=== PATIENT | female | born 1955 | race Caucasian/White ===

== ENCOUNTER 2020-08-29 07:21 | Outpatient (REF) | payer OTHER, SELFPAY ==
[2020-08-29 12:07] LABS: Estimated Average Glucose 111 mg/dL; Hemoglobin A1c % 5.5 %
[2020-08-29 12:11] LABS: Free T4 (Free Thyroxine) 1.15 ng/dL (0.71-1.85); Thyroid Stimulating Hormone 5.55 uIU/mL (0.32-4.0); Vitamin D 25-OH Total 31.2 ng/mL (>30)
[2020-08-29 12:12] LABS: Alanine Aminotransferase 30 U/L (0-31); Anion Gap 17 (12-20); Aspartate Amino Transferase 21 U/L (5-31); Blood Urea Nitrogen 13 mg/dL (9-16); Calcium 9.4 mg/dL (8.4-10.2); Carbon Dioxide 24 mmol/L (22-29); Chloride 104 mmol/L (96-108); Cholesterol 266 mg/dL; Estimated Glomerular Filt Rate 57; Glucose Fasting 109 mg/dL (60-99); HDL Cholesterol 73 mg/dL; LDL Cholesterol Calculated 160 mg/dl; Potassium 4.5 mmol/l (3.3-5.1); Sodium 140 mmol/L (135-145); Triglycerides 169 mg/dL
== END 2020-08-29 07:22 | disposition home or self-care (01) ==
LOC: HO.HMGCLDS 07:21
PROVIDERS: PCP Internal Medicine; Visit Provider Internal Medicine
DX: R73.01 Impaired fasting glucose (principal); E78.5 Hyperlipidemia, unspecified; E03.9 Hypothyroidism, unspecified; E78.2 Mixed hyperlipidemia; K21.9 Gastro-esophageal reflux disease without esophagitis; F41.1 Generalized anxiety disorder; Z78.0 Asymptomatic menopausal state
CPT/HCPCS: 36415; 80048; 80061; 82306; 83036; 84439; 84443; 84450; 84460

== ENCOUNTER 2021-01-29 08:07 | Outpatient (REF) | payer OTHER, SELFPAY ==
[2021-01-29 12:17] LABS: Free T4 (Free Thyroxine) 1.26 ng/dL (0.71-1.85)
[2021-01-29 12:31] LABS: Alanine Aminotransferase 18 U/L (0-31); Aspartate Amino Transferase 14 U/L (5-31); Cholesterol 225 mg/dL; HDL Cholesterol 68 mg/dL; LDL Cholesterol Calculated 130 mg/dl; Triglycerides 137 mg/dL
== END 2021-01-29 08:08 | disposition home or self-care (01) ==
LOC: HO.HMGCLDS 08:07
PROVIDERS: PCP Internal Medicine; Visit Provider Internal Medicine
DX: E03.9 Hypothyroidism, unspecified (principal); E78.5 Hyperlipidemia, unspecified; F41.1 Generalized anxiety disorder
CPT/HCPCS: 36415; 80061; 84439; 84443; 84450; 84460

== ENCOUNTER 2021-03-23 15:27 | Outpatient (REF) | payer OTHER, SELFPAY | END 2021-03-23 15:28 | disposition home or self-care (01) | LOC: HO.LNP 15:27 | PROVIDERS: Visit Provider Physician Assistant Medical | DX: Z20.822 Contact with and (suspected) exposure to COVID-19 (principal) | CPT/HCPCS: U0003; U0005 ==

== ENCOUNTER 2021-05-17 09:46 | Emergency (ER) | payer OTHER, SELFPAY ==
--- NOTE | ~2021-05-17 | CT_ITS ---
EXAMINATION: CT ANGIOGRAM NECK WITH CONTRAST CT ANGIOGRAM BRAIN WITH CONTRAST CLINICAL INFORMATION: Left-sided headache, dizziness, and blurry vision. COMPARISON: MRI brain 03/23/2018. TECHNIQUE: Test bolus sequences followed by intravenous administration 70 mL of Omnipaque 350. Helical imaging was performed in the axial plane from the thoracic inlet to the skull vertex. Delayed postcontrast imaging of the head was also performed. The data was processed at the cardiovascular radiologic technologist workstation for generation of MIP sequences. Angled MIPs and volume rendered reformatted images were also generated at an offline 3D workstation under concurrent supervision. Stenoses are assessed in accordance with NASCET criteria unless otherwise indicated. This CT examination was performed using dose optimization techniques as appropriate, variously including the following: *Automated exposure control *Adjustment of mA and/or kV according to patient size (this includes techniques or standardized protocols for targeted exams where dose is matched to indication/reason for exam; i.e. extremities or head) *Use of iterative reconstruction technique FINDINGS: BRAIN: [There is no intracranial hemorrhage, hydrocephalus, extra-axial surface collection, midline shift, or other herniation pattern. Patterson to white matter differentiation is diffusely maintained without evidence of an evolved acute territorial infarct. The basilar cisterns are preserved. No significant soft tissue abnormality. No acute osseous abnormality. The paranasal sinuses and the mastoid air cells are well aerated.] CERVICAL SOFT TISSUES AND LUNG APICES: Multilevel cervical spondylosis. No significant soft tissue findings within the neck. Imaged upper lungs are clear. NECK CTA: [There is a classic 3 vessel configuration of the aortic arch. Proximal arch vessels are non-stenotic. The vertebral arteries are codominant. No significant ostial stenosis is visualized on either side. Both vertebral arteries are widely patent throughout their extracranial cervical course. Both common and internal carotid arteries are normal in course and caliber.] BRAIN CTA: [There is normal opacification of major intracranial arteries. No focal flow-limiting stenosis nor discrete proximal large artery occlusion. No aneurysm. Timing of the contrast bolus allows assessment of the major dural venous sinuses, which all opacify normally] CT/CT angio head neck IMPRESSION: No acute intracranial findings. No acute arterial occlusions and no significant arterial stenoses within the head or neck.
--- NOTE | ~2021-05-17 | MR_ITS ---
EXAMINATION: MRI OF THE BRAIN WITHOUT CONTRAST CLINICAL INFORMATION: Dizziness and blurred vision. COMPARISON: CTA of the head and neck 05/17/2021. MRI scan of the brain 03/23/2018. TECHNIQUE: MRI of the brain was obtained using routine sequences without contrast. FINDINGS: No diffusion abnormalities are identified to suggest an acute or subacute infarct. No mass effect or midline shift is seen. There is mild commensurate prominence the ventricles and sulci consistent with diffuse volume loss. Overall, brain parenchymal signal is unremarkable. No discrete extra-axial fluid collections are seen; there is a melissa cisterna magna posteriorly in the posterior fossa on the left. The brainstem and cerebellum are normal. No pathologic magnetic susceptibility artifact is identified on the gradient refocused acquisition. The craniovertebral junction, marrow signal, and midline structures are normal. The major intracranial flow-voids at the level of the kaibab of [place] are preserved. The dural venous sinus flow-voids are maintained. The study redemonstrates fluid signal in the right mastoid air cells, similar compared to prior imaging. The left mastoid air cells and paranasal sinuses are well-aerated. MR/MR head/brain wo con IMPRESSION: 1. There are no acute bleeds or territorial infarcts. No masses are demonstrated. There is persistent fluid signal in the right mastoid air cells..
[2021-05-17 09:51] VITALS: BP 150/100; PULSE 58; RESP 16; TEMP 36.3; O2SAT 95; BMI 25.4
--- NOTE | 2021-05-17 09:59 | ED_ITS ---
HPI - Neuro Symptoms/Deficit General Chief Complaint: Neuro Symptoms/Deficit Stated Complaint: SHARP HEAD PAIN BLURRED VISSION Time Seen by Provider: 05/17/21 09:53 Source: patient Mode of arrival: ambulatory Limitations: no limitations History of Present Illness Onset (ago): hour(s) (830pm last night) Location: other (L sharp headache, blurry vision, ) History of same: No Severity: moderate Quality: other (sharp head pain) Relieving factors: none Exacerbating factors: none Context: sudden onset On Anticoagulants: No Associated symptoms: other (dizziness, floaters in eye, blurry vision, also felt her L pupil was constricted) Treatments Prior to Arrival: Aspirin and other (xanax) Related Data Home Medications Medication Instructions Recorded Confirmed Prevagen 1 tab PO DAILY 05/17/21 05/17/21 aspirin 81 mg chewable tablet 81 mg PO DAILY 05/17/21 05/17/21 cholecalciferol (vitamin D3) 25 25 mcg PO DAILY 05/17/21 05/17/21 mcg (1,000 unit) capsule (Vitamin D3) cyanocobalamin (vitamin B-12) 1,000 mcg PO DAILY 05/17/21 05/17/21 1,000 mcg tablet pyridoxine (vitamin B6) 100 mg 50 mg PO DAILY 05/17/21 05/17/21 tablet vitamin E 200 unit tablet 450 mg PO DAILY 05/17/21 05/17/21 Previous Rx's Medication Instructions Recorded omeprazole 20 mg capsule,delayed 20 mg PO DAILY #90 cap 12/12/20 release atorvastatin 40 mg tablet 40 mg PO DAILY #90 tab 03/10/21 alprazolam 0.5 mg tablet 0.5 mg PO BID PRN #45 tab 03/29/21 levothyroxine 50 mcg tablet 50 mcg PO DAILY #90 tab 04/30/21 meclizine 25 mg tablet 25 mg PO TID PRN #30 tab 05/17/21 Allergies Allergy/AdvReac Type Severity Reaction Status Date / Time Codeine Sulfate AdvReac Unknown nausea Uncoded 12/09/19 00:00 Review of Systems Review of Systems: Constitutional : No Fever, No Chills, No Fatigue ENT/Mouth : No sore throat, No Rhinorrhea Eyes: No Eye Pain, No Swelling, No Redness, pos blurry vision Cardiovascular : No Chest Pain, No SOB, No Dyspnea on Exertion Respiratory : No Cough, No Sputum Gastrointestinal : No Nausea, No Vomiting, No Diarrhea, No abdominal Pain Genitourinary : No Dysuria, No Urinary Frequency, No Hematuria, Musculoskeletal : No joint pain, No Myalgias, No Joint Swelling Skin : No Skin Lesions, No rash Neuro : No Weakness, No Numbness, pos Dizziness, positive Headache Psych : No Anxiety/Panic, No Depression Heme/Lymph: No Bruising, No Bleeding,No Lymphadenopathy Endocrine : No Polyuria, No Polydipsia All other systems reviewed and are negative [facility] Past Medical History Attestation statement: The following information was validated with the patient. Medical History Acquired hypothyroidism Chronic GERD Dyslipidemia Generalized anxiety disorder Patent foramen ovale with atrial septal aneurysm TIA (transient ischemic attack) Surgical History Hx of colonoscopy Family History Family History Father Coronary artery disease Brother Coronary artery disease Paternal Grandmother Breast cancer Social History Social History Alcohol intake: current Advance Directives: Yes Advance Directives Information Provided: Yes Advance Directives on File: No Physical Exam Vital Signs: Vital Signs: Last Vital Signs Temp 98 F 05/17/21 15:15 Pulse 70 05/17/21 15:15 Resp 16 05/17/21 15:15 BP 114/59 L 05/17/21 15:15 Pulse Ox 97 05/17/21 15:15 Body Mass Index 25.4 Appearance: Alert. Oriented X3. No acute distress. Anxious Eyes: Pupils equal, round and reactive to light. 2mm ENT: Pharynx normal. Neck: Normal inspection. Neck supple. CVS: Normal heart rate and rhythm. Pulses normal. Respiratory: No respiratory distress. Breath sounds normal. Abdomen: Soft and non-tender. Skin: Skin warm and dry. Normal skin color. Normal skin turgor. Extremities: No lower extremity edema. No calf ttp Neuro: Oriented X 3. No motor deficit. No sensory deficit. Steady gait in heels Course Course Course Narrative: EKG request from [facility] repeat trop ordered neg CTA still feels dizzy MRI ordered given she is higher risk with PFO negative MRI EKG changed from 2014 but no CP/SOB negative trop x 2, doubt ACS will repeat EKG 2nd EKG deeper T wave inversions but again no CP/SOB will discuss with cardiology - no tachycardia no hypoxia no pain or signs of DVT to suggest VTE given lack of CP/SOB discussed with Cardiology non specific can follow up with PCP Sebas PE negative MDM - Neuro Symptoms/Deficit MDM Narrative Medical decision making narrative: 66 yo female with hx of TIA and PFO on aspirin comes in with c/o feeling dizzy, blurry vision, thought her L pupil was smaller today, as well as sharp L sided headache at this time her onset is over 12 hours she is out of the window for tPa if it is a stroke. Given the sharp pain there is a concern for dissection as well - CT scan /CTA head and neck, PO xanax for anxiety, labs, dispo per results and findings. Lab Data Result diagrams: 05/17/21 10:28 05/17/21 10:28 Labs: Lab Results 05/17/21 05/17/21 05/17/21 Range/Units 10:28 10:28 10:28 WBC 7.8 (4.8-10.8) X10*3/uL RBC 4.50 (4.20-5.50) X10*6/uL Hgb 14.0 (12.0-16.0) g/dl Hct 41.5 (37-47) % MCV 92.2 (80-98) fL MCH 31.1 (27.0-33.0) pg MCHC 33.7 (31.0-35.0) g/dl RDW 13.2 (11.0-16.0) % Plt Count 293 (160-400) X10*3/uL MPV 9.7 (9.4-12.3) fL Immature Gran % (Auto) 0.1 (0.0-0.4) % Neut % (Auto) 60.2 (45-73) % Lymph % (Auto) 32.5 (20-40) % Kaufman % (Auto) 6.3 (2-11) % Eos % (Auto) 0.5 (0-4) % Baso % (Auto) 0.4 (0-2) % Lymph # (Auto) 2.5 (1.2-4.9) X10*3/uL Kaufman # (Auto) 0.5 (0.1-1.2) X10*3/uL Eos # (Auto) 0.0 (0.0-0.4) X10*3/uL Baso # (Auto) 0.0 (0.0-0.2) X10*3/uL Abs Immat Gran (auto) 0.01 (0.00-0.03) X10*3/uL Absolute Neuts (auto) 4.7 (2.0-8.3) X10*3/uL Absolute Nucleated RBC 0.000 (0.0-0.012) X10*3/uL Nucleated RBC % (auto) 0.0 (0.0-0.2) /100WBC Sodium 140 (135-145) mmol/L Potassium 4.3 (3.3-5.1) mmol/L Chloride 104 (96-108) mmol/L Carbon Dioxide 26 (22-29) mmol/L Anion Gap 14 (12-20) BUN 12 (9-16) mg/dL Creatinine 0.95 (0.5-1.4) mg/dL Estim Creat Clear Calc 48.0 Estimated GFR 59 Random Glucose 105 (60-115) mg/dL Calcium 10.3 H D (8.4-10.2) mg/dL Magnesium 2.0 (1.6-2.6) mg/dL Total Bilirubin 0.4 (0.0-1.0) mg/dL Direct Bilirubin 0.2 (0.0-0.5) mg/dL AST 16 (5-31) U/L ALT 25 (0-31) U/L Alkaline Phosphatase 71 (39-117) U/L Troponin I High Sens < 3.5 (<3.5-17.0) ng/L Total Protein 7.4 (6.5-8.0) g/dL Albumin 4.7 (3.5-5.0) g/dL Lipase 27 (8-78) U/L Urine Color Urine Appearance Urine pH (5.0-8.0) Ur Specific Dale (1.005-1.025) Urine Protein (NEG-TRACE) MG/DL Urine Glucose (UA) (NEG) MG/DL Urine Ketones (NEG) MG/DL Urine Blood (NEG) Urine Nitrite (NEG) Ur Leukocyte Esterase (NEG) COVID-19 (GUERDA) (Negative) COVID-19 Clin Com 05/17/21 05/17/21 05/17/21 Range/Units 10:28 10:28 13:13 WBC (4.8-10.8) X10*3/uL RBC (4.20-5.50) X10*6/uL Hgb (12.0-16.0) g/dl Hct (37-47) % MCV (80-98) fL MCH (27.0-33.0) pg MCHC (31.0-35.0) g/dl RDW (11.0-16.0) % Plt Count (160-400) X10*3/uL MPV (9.4-12.3) fL Immature Gran % (Auto) (0.0-0.4) % Neut % (Auto) (45-73) % Lymph % (Auto) (20-40) % Kaufman % (Auto) (2-11) % Eos % (Auto) (0-4) % Baso % (Auto) (0-2) % Lymph # (Auto) (1.2-4.9) X10*3/uL Kaufman # (Auto) (0.1-1.2) X10*3/uL Eos # (Auto) (0.0-0.4) X10*3/uL Baso # (Auto) (0.0-0.2) X10*3/uL Abs Immat Gran (auto) (0.00-0.03) X10*3/uL Absolute Neuts (auto) (2.0-8.3) X10*3/uL Absolute Nucleated RBC (0.0-0.012) X10*3/uL Nucleated RBC % (auto) (0.0-0.2) /100WBC Sodium (135-145) mmol/L Potassium (3.3-5.1) mmol/L Chloride (96-108) mmol/L Carbon Dioxide (22-29) mmol/L Anion Gap (12-20) BUN (9-16) mg/dL Creatinine (0.5-1.4) mg/dL Estim Creat Clear Calc Estimated GFR Random Glucose (60-115) mg/dL Calcium (8.4-10.2) mg/dL Magnesium (1.6-2.6) mg/dL Total Bilirubin (0.0-1.0) mg/dL Direct Bilirubin (0.0-0.5) mg/dL AST (5-31) U/L ALT (0-31) U/L Alkaline Phosphatase (39-117) U/L Troponin I High Sens < 3.5 (<3.5-17.0) ng/L Total Protein (6.5-8.0) g/dL Albumin (3.5-5.0) g/dL Lipase (8-78) U/L Urine Color STRAW Urine Appearance CLEAR Urine pH 5.5 (5.0-8.0) Ur Specific Dale <= 1.005 (1.005-1.025) Urine Protein NEG (NEG-TRACE) MG/DL Urine Glucose (UA) NEG (NEG) MG/DL Urine Ketones NEG (NEG) MG/DL Urine Blood NEG (NEG) Urine Nitrite NEG (NEG) Ur Leukocyte Esterase NEG (NEG) COVID-19 (GUERDA) Negative (Negative) COVID-19 Clin Com See Note ECG Data Attestation: I personally reviewed and interpreted this ECG as follows: ECG interpretation date: 05/17/21 ECG interpretation time: 10:28 Interpretation: Rate: 66 Rhythm: NSR Mackay: normal LVH Normal P waves. Normal FLORENCE. Normal QRS complex. ST T wave : no VANDANA, inverted I and aVL, V4-V6 qTC: normal prior studies: no priors available The study has been interpreted contemporaneously by me. Rate: 62 Rhythm: NSR Mackay: normal Normal P waves. Normal FLORENCE. Normal QRS complex. ST T wave : inverted in I and aVL, V3-V6, biphasic in V1-V2 qTC: normal prior studies: changed from prior The study has been interpreted contemporaneously by me. . NIH Stroke Scale Internal: Initial- Upon Arrival Level of Consciousness: Alert Level of Consciousness Questions: Answers both questions correctly Level of Consciousness Commands: Performs both tasks correctly Best Gaze: Normal Visual: No visual loss Facial Palsy: Normal Motor Arm (Right): No drift Motor Arm (Left): No drift Motor Leg (Right): No drift Motor Leg (Left): No drift Limb Ataxia: Absent Sensory: Normal Best Language: No aphasia Dysarthia: Normal Extinction and Inattention: No abnormality Score: 0 Discharge Plan Discharge Clinical Impression: Dizziness, Headache, Inverted T wave Patient Disposition: Home, Self-Care Instructions: Acute Headache (ED), Dizziness (ED) Additional Instructions: return to ED for any worsening symptoms or concerns heart markers negative x 2, MRI negative for stroke, CT with contrast no acute stroke normal vessels Prescriptions: New meclizine 25 mg tablet 25 mg PO TID PRN (Reason: dizziness) Qty: 30 RF: 0 No Action omeprazole 20 mg capsule,delayed release(DR/EC) 20 mg PO DAILY Qty: 90 RF: 4 atorvastatin 40 mg tablet 40 mg PO DAILY Qty: 90 RF: 1 alprazolam 0.5 mg tablet 0.5 mg PO BID PRN (Reason: anxiety) Qty: 45 RF: 0 levothyroxine 50 mcg tablet 50 mcg PO DAILY Qty: 90 RF: 1 cyanocobalamin (vitamin B-12) 1,000 mcg Tablet 1,000 mcg PO DAILY RF: 0 aspirin 81 mg Tablet,Chewable 81 mg PO DAILY RF: 0 pyridoxine (vitamin B6) 100 mg Tablet 50 mg PO DAILY RF: 0 vitamin E 200 unit Tablet 450 mg PO DAILY RF: 0 cholecalciferol (vitamin D3) [Vitamin D3] 25 mcg (1,000 unit) Capsule 25 mcg PO DAILY RF: 0 Prevagen 1 tab PO DAILY RF: 0 Referrals: Kalina Palacios MD [Primary Care Provider] - 3 days (Thursday follow up you had some slight changes on your EKG with inverted T waves would follow up with your heart doctor as well) Stand Alone Forms: Work/School Release
--- NOTE | 2021-05-17 10:07 | ECG_ITS ---
Test Reason : DIZZINESS Blood Pressure : / mmHG Vent. Rate : 066 BPM Atrial Rate : 066 BPM P-R Int : 130 ms QRS Dur : 082 ms QT Int : 386 ms P-R-T Axes : 029 052 075 degrees QTc Int : 404 ms Normal sinus rhythm Possible Left atrial enlargement T wave abnormality, consider lateral ischemia Abnormal ECG No previous ECGs available Referred By: Laureen Crouch Electronically Signed By:RENATA POWERS
[2021-05-17] MEDS: ALPRAZolam 0.5 MG TABLET PO (10:13)
[2021-05-17 10:37] LABS: MANUAL DIFF FLAG NO
[2021-05-17 10:39] LABS: Appearance Urine CLEAR; Basophils Percent Auto 0.4 % (0-2); Color Urine STRAW; Eosinophils Percent Auto 0.5 % (0-4); Glucose Urine UA NEG (NEG); Hematocrit 41.5 % (37-47); Imm Gran Abs Auto 0.01 X10*3/uL (0.00-0.03); Imm Gran Pct Auto 0.1 % (0.0-0.4); Leukocyte Esterase Urine NEG (NEG); Lymphocytes Absolute Auto 2.5 X10*3/uL (1.2-4.9); Lymphocytes Percent Auto 32.5 % (20-40); Mean Corpuscular HGB Conc 33.7 g/dl (31.0-35.0); Mean Corpuscular Hemoglobin 31.1 pg (27.0-33.0); Mean Corpuscular Volume 92.2 fL (80-98); Mean Platelet Volume 9.7 fL (9.4-12.3); Monocytes Absolute Auto 0.5 X10*3/uL (0.1-1.2); Monocytes Percent Auto 6.3 % (2-11); Neutrophils Absolute Auto 4.7 X10*3/uL (2.0-8.3); Neutrophils Percent Auto 60.2 % (45-73); Nitrite Urine NEG (NEG); PH 5.5 (5.0-8.0); Platelet Count 293 X10*3/uL (160-400); Red Cell Distribution Width 13.2 % (11.0-16.0); Specific Gravity - Urine <= 1.005 (1.005-1.025); Urine Blood NEG (NEG); Urine Ketones NEG (NEG); Urine Protein NEG (NEG-TRACE); White Blood Count 7.8 X10*3/uL (4.8-10.8)
[2021-05-17 10:56] VITALS: BP 148/54; PULSE 68; RESP 16; O2SAT 98
[2021-05-17] MEDS: 0.9 % Sodium Chloride 1,000 ML 999 ML IV (10:56)
[2021-05-17 10:57] LABS: COVID-19 Test Negative (Negative)
[2021-05-17 11:00] LABS: Alanine Aminotransferase 25 U/L (0-31); Albumin Level 4.7 g/dL (3.5-5.0); Alkaline Phosphatase 71 U/L (39-117); Anion Gap 14 (12-20); Aspartate Amino Transferase 16 U/L (5-31); Bilirubin Direct 0.2 mg/dL (0.0-0.5); Bilirubin Total 0.4 mg/dL (0.0-1.0); Blood Urea Nitrogen 12 mg/dL (9-16); Calcium 10.3 mg/dL (8.4-10.2); Carbon Dioxide 26 mmol/L (22-29); Chloride 104 mmol/L (96-108); Estimated Glomerular Filt Rate 59; Glucose Random 105 mg/dL (60-115); Lipase 27 U/L (8-78); Potassium 4.3 mmol/L (3.3-5.1); Sodium 140 mmol/L (135-145); Total Protein 7.4 g/dL (6.5-8.0)
[2021-05-17 11:03] LABS: Troponin-I High Sensitivity < 3.5 ng/L (<3.5-17.0)
--- NOTE | 2021-05-17 11:18 | PHA.MEDREC ---
Pharmacy Consult ? Medication Reconciliation Pharmacy has completed the medication reconciliation. There are no remarkable issues for provider's attention. Patient take a lot of OTC supplements. Federica Griggs, PharmD
[2021-05-17] MEDS: iohexoL 350 MG/ML 100 ML INFUS..BTL 70 ML IV (11:59)
[2021-05-17 13:41] LABS: Troponin-I High Sensitivity < 3.5 ng/L (<3.5-17.0)
[2021-05-17 13:42] VITALS: BP 138/69; PULSE 63; RESP 16; O2SAT 98
[2021-05-17 15:15] VITALS: BP 114/59; PULSE 70; RESP 16; TEMP 36.6; O2SAT 97
--- NOTE | 2021-05-17 15:29 | ECG_ITS ---
Test Reason : REPEAT Blood Pressure : / mmHG Vent. Rate : 062 BPM Atrial Rate : 062 BPM P-R Int : 136 ms QRS Dur : 074 ms QT Int : 410 ms P-R-T Axes : 035 028 104 degrees QTc Int : 416 ms Normal sinus rhythm T wave abnormality, consider anterolateral ischemia Abnormal ECG When compared with ECG of 17-MAY-2021 10:17, T wave inversion more evident in Anterior leads Referred By: Laureen Crouch Electronically Signed By:RENATA POWERS
== END 2021-05-17 15:50 | disposition home or self-care (01) ==
PROVIDERS: Emergency Provider Emergency Medicine; PCP Internal Medicine
DX: R42 Dizziness and giddiness (principal); R51.9 Headache, unspecified; R29.700 NIHSS score 0; R94.31 Abnormal electrocardiogram [ECG] [EKG]; Z79.82 Long term (current) use of aspirin; Z20.822 Contact with and (suspected) exposure to COVID-19; Z79.899 Other long term (current) drug therapy
CPT/HCPCS: 36415; 70496; 70498; 70551; 80048; 80076; 81003; 83690; 83735; 84484; 85025; 87635; 93005; 96360; 99284; 99285; Q9967

== ENCOUNTER 2022-01-24 07:03 | Outpatient (REF) | payer OTHER, SELFPAY ==
[2022-01-24 11:26] LABS: MANUAL DIFF FLAG NO
[2022-01-24 11:38] LABS: Basophils Percent Auto 0.5 % (0-2); Eosinophils Absolute Auto 0.1 X10*3/uL (0.0-0.4); Eosinophils Percent Auto 1.4 % (0-4); Hematocrit 43.6 % (37.0-47.0); Imm Gran Abs Auto 0.02 X10*3/uL (0.00-0.03); Imm Gran Pct Auto 0.2 % (0.0-0.4); Lymphocytes Absolute Auto 3.5 X10*3/uL (1.2-4.9); Lymphocytes Percent Auto 43.3 % (20-40); Mean Corpuscular HGB Conc 32.1 g/dl (31.0-35.0); Mean Corpuscular Hemoglobin 29.6 pg (27.0-33.0); Mean Corpuscular Volume 92.2 fL (80.0-98.0); Mean Platelet Volume 10.4 fL (9.4-12.3); Monocytes Absolute Auto 0.6 X10*3/uL (0.1-1.2); Monocytes Percent Auto 7.3 % (2-11); Neutrophils Absolute Auto 3.8 x10*3/uL (2.0-8.3); Neutrophils Percent Auto 47.3 % (45-73); Platelet Count 324 X10*3/uL (160-400); Red Blood Count 4.73 X10*6/uL (4.20-5.50); Red Cell Distribution Width 13.3 % (11.0-16.0); White Blood Count 8.1 X10*3/uL (4.8-10.8)
[2022-01-24 11:55] LABS: Alanine Aminotransferase 20 U/L (0-31); Albumin Level 4.5 g/dL (3.5-5.0); Alkaline Phosphatase 64 U/L (39-117); Anion Gap 13 (12-20); Aspartate Amino Transferase 16 U/L (5-31); Bilirubin Total 0.4 mg/dL (0.0-1.0); Blood Urea Nitrogen 12 mg/dL (9-16); Calcium 10.7 mg/dL (8.4-10.2); Carbon Dioxide 28 mmol/L (22-29); Chloride 101 mmol/L (96-108); Cholesterol 186 mg/dL; Estimated Glomerular Filt Rate 53; Glucose Fasting 111 mg/dL (60-99); HDL Cholesterol 63 mg/dL; LDL Cholesterol Calculated 91 mg/dl; Potassium 4.8 mmol/L (3.3-5.1); Sodium 137 mmol/L (135-145); Total Protein 7.1 g/dL (6.5-8.0); Triglycerides 164 mg/dL
[2022-01-24 12:20] LABS: Thyroid Stimulating Hormone 3.91 uIU/mL (0.32-4.0); Vitamin D 25-OH Total 45.6 ng/mL (>30)
[2022-01-24 12:34] LABS: Folate 4.2 ng/mL (> or = 4.0); Vitamin B12 608 pg/mL (200-900)
[2022-01-30 14:02] LABS: Vitamin B6 102.3 ng/mL (2.1-21.7)
== END 2022-01-24 07:04 | disposition home or self-care (01) ==
LOC: HO.HMGCLDS 07:03
PROVIDERS: PCP Internal Medicine; Visit Provider Internal Medicine
DX: E03.9 Hypothyroidism, unspecified (principal); E78.5 Hyperlipidemia, unspecified; K21.9 Gastro-esophageal reflux disease without esophagitis; F41.1 Generalized anxiety disorder
CPT/HCPCS: 36415; 80053; 80061; 82306; 82607; 82746; 84207; 84439; 84443; 85025

== ENCOUNTER 2022-07-14 10:18 | Outpatient (REF) | payer OTHER, SELFPAY ==
[2022-07-14 12:49] LABS: Anion Gap 14 (12-20); Blood Urea Nitrogen 14 mg/dL (9-16); Carbon Dioxide 24 mmol/L (22-29); Chloride 107 mmol/L (96-108); Estimated Glomerular Filt Rate 60; Glucose Fasting 104 mg/dL (60-99); Potassium 4.6 mmol/L (3.3-5.1); Sodium 140 mmol/L (135-145)
[2022-07-15 10:56] LABS: Calcium (PTHI) 9.4 mg/dL (8.6-10.4); PTHI 75 pg/mL (16-77)
[2022-07-15 15:42] LABS: Calcium, Ionized 5.1 mg/dL (4.8-5.6)
[2022-07-19 14:31] LABS: Vitamin B6 9.5 ng/mL (2.1-21.7)
== END 2022-07-14 10:19 | disposition home or self-care (01) ==
LOC: HO.LAB 10:18
PROVIDERS: PCP Internal Medicine; Visit Provider Internal Medicine
DX: E67.8 Other specified hyperalimentation (principal); E83.52 Hypercalcemia; F41.1 Generalized anxiety disorder; E78.5 Hyperlipidemia, unspecified
CPT/HCPCS: 36415; 80048; 82330; 83970; 84207

== ENCOUNTER 2022-08-07 07:05 | Outpatient (REF) | payer OTHER, SELFPAY ==
[2022-08-07 11:58] LABS: Alanine Aminotransferase 25 U/L (0-31); Aspartate Amino Transferase 16 U/L (5-31); Cholesterol 213 mg/dL; HDL Cholesterol 76 mg/dL; LDL Cholesterol Calculated 106 mg/dl; Triglycerides 155 mg/dL
== END 2022-08-07 07:06 | disposition home or self-care (01) ==
LOC: HO.HMGCLDS 07:05
PROVIDERS: PCP Internal Medicine; Visit Provider Internal Medicine
DX: E78.5 Hyperlipidemia, unspecified (principal); Q21.10 Atrial septal defect, unspecified; Z86.73 Personal history of transient ischemic attack (TIA), and cerebral infarction without residual deficits
CPT/HCPCS: 36415; 80061; 82550; 84450; 84460

== ENCOUNTER 2022-09-04 14:49 | Outpatient (AMB) | payer OTHER, SELFPAY ==
--- NOTE | 2022-09-04 15:31 | MHC.PC.OV ---
Vital Signs 09/04/22 15:33 Height 5 ft Weight 134 lb BMI 26.2 BP 134/70 Blood Pressure Location Lt brachial Position Sitting Pulse 78 Pulse Source Pulse Oximeter Pulse Oximetry (%) 94 Oxygen Delivery Method Room Air Intake Visit Reasons: Followup labs/meds Intake Note: Pt is here today to f/u meds Allergies Codeine Sulfate Adverse Reaction (Unknown, Uncoded 09/04/23 09:24) nausea Medication List - Last Reconciled 09/04/22 by Kalina Palacios MD aspirin 81 mg PO DAILY escitalopram oxalate 10 mg PO DAILY estradiol (Yuvafem) 10 mcg vaginal 2XW gabapentin 100 mg PO TID levothyroxine 50 mcg PO DAILY meclizine 25 mg PO TID PRN omeprazole 20 mg PO DAILY ondansetron HCl 4 mg PO Q12H PRN rosuvastatin 40 mg PO BEDTIME Tobacco use date assessed: 09/04/22 Fall risk assessment: No Falls in past year Last assessed Fall Risk: 09/04/22 HPI Followup labs/meds HPI Details 68-year-old lady with history of TIA, here today for follow-up on her hypothyroidism and hyperlipidemia. She has been compliant with taking her medications, and tries to follow recommended diet but admits to not getting any regular exercise. She has been feeling well, with no complaints of any chest pain, no headache or lightheadedness, no palpitation no shortness of breath. [facility] Medical History (Updated 10/16/23 @ 01:31 by Kalina Palacios MD) History of recurrent TIAs Chronic GERD Generalized anxiety disorder Dyslipidemia Surgical History Hx of colonoscopy Family History Father Coronary artery disease Brother Coronary artery disease Paternal Grandmother Breast cancer Social History Housing: House Alcohol intake: current Patient Tobacco Use Status: Current everyday Tobacco user Cigarettes Per Day: 2 e-Cigarette/Vaping Use: Never Used Second Hand Smoke Exposure: No service: No Current occupational status: employed Cognitive needs: No Hearing needs: No Vision needs: No Questionnaire PHQ-9 Over the last 2 weeks, how often have you been bothered by any of the following problems? 1. Little interest or pleasure in doing things: not at all 2. Feeling down, depressed, or hopeless: not at all 3. Trouble falling or staying asleep, or sleeping too much: several days 4. Feeling tired or having little energy: not at all 5. Poor appetite or overeating: several days 6. Feeling bad about yourself - or that you are a failure or have let yourself or your family down: not at all 7. Trouble concentrating on things, such as reading the newspaper or watching television: not at all 8. Moving or speaking so slowly that other people could have noticed. Or the opposite - being so fidgety or restless that you have been moving around a lot more than usual: not at all 9. Thoughts that you would be better off or of hurting yourself in some way: not at all Total score: 2 Depression Screening Interpretation: Negative 76362 - PHQ-9 Billing: Yes Source: Developed by Drs. Jason Griems, Gem Beckford, Atul Miramontes and colleagues, with an educational ed from [employer]. Thrive Questionnaire Declines Thrive assessment: No Date Thrive assessed: 09/04/22 I am a: Patient What is your living situation today?: I have a steady place to live Within the past 12 months, did the food you bought not last and you didn't have the money to get more?: Never true Within the past 12 months, did you worry whether your food would run out before you got money to buy more?: Never true Do you have trouble paying for medicines?: No Do you have trouble getting transportation to medical appointments?: No Do you have trouble paying your heating and electricity bill?: No Do you have trouble taking care of your child, family member or friend?: No Do you have trouble with day-to-day activities such as bathing, preparing meals, shopping, managing finances, etc.?: No Are you currently unemployed and looking for a job?: No Are you interested in more education?: No MIKHAIL-7 AMB Questionnaire MIKHAIL-7 Date MIKHAIL - 7 assessed: 09/04/22 Feeling nervous, anxious, or on edge: 1 = Several days Not being able to stop or control worryin = Several days Worrying too much about different things: 0 = Not at all Trouble relaxin = Not at all Being so restless that it is hard to sit still: 0 = Not at all Becoming easily annoyed or irritable: 1 = Several days Feeling afraid as if something awful might happen: 0 = Not at all Total MIKHAIL-7 score (0-4 normal; 5-9 mild; 10-14 moderate; 15-21 severe): 3 Source: Developed by Drs. Jason Grimes, Gem Beckford, Atul Miramontes and colleagues, with an educational ed from [employer]. MIKHAIL-7 Assessment Billing MIKHAIL-7 Assessment Tool: MIKHAIL-7 Assessment 23609 Review of Systems Const Denies fever(s) Eyes Denies change in vision ENT Denies sore throat Card Denies chest pain, Denies rapid heart rate, Denies irregular heart rhythm, Denies lightheadedness and Denies dyspnea Resp Denies chest congestion, Denies cough and Denies dyspnea GI Denies abdominal pain, Denies bloating, Denies change in bowel habits and Denies change in stool character Denies urinary frequency, Denies dysuria and Denies urinary urgency Neuro Reports no additional complaints Endo Reports no additional complaints Physical exam (Primary Care) Vital Signs: Last Vital Signs Pulse 78 09/04/22 15:33 BP 134/70 09/04/22 15:33 Pulse Ox 94 09/04/22 15:33 Oxygen Delivery Method Room Air 09/04/22 15:33 BMI result Body Mass Index 2.5 Tobacco/Smoking Status: Tobacco use Status Tobacco use date assessed 09/04/22 09/04/22 15:37 Patient Tobacco Use Status Current someday Tobacco 09/04/22 15:31 e-Cigarette/Vaping Use Never Used 09/04/22 15:31 PHQ-9: PHQ-9 Score PHQ-9: Total score 2 09/04/22 17:28 Depression Screening Interpretation: Negative Thrive Assessment: Date of Thrive Assessment Date Thrive assessed 09/04/22 09/04/22 15:39 Const General: comfortable, no acute distress and alert Orientation/consciousness: patient oriented x3 HENMT Ears: external ears normal Mouth: oropharynx normal and moist mucous membranes Eyes General: appearance normal, both eyes and all related structures Neck Neck: Yes full ROM, Yes no lymphadenopathy and Yes supple Resp Effort & Inspection: normal respiratory effort and able to speak in complete sentences Auscultation: clear to auscultation bilaterally Cardio Rate: regular rate Rhythm: regular rhythm Heart sounds: S1 normal heart sound present and S2 normal heart sound present GI Palpation (GI): Soft to palpation, nontender and no masses Auscultation: normal bowel sounds Neuro General: patient oriented x3, gait normal, tone normal, moves all extremities and no focal motor deficits Extrem General: Yes full ROM and Yes no clubbing, cyanosis or edema Results Reviewed Results Reviewed: ENTERED: 08/07/[address]: ORDERED: AST, ALT, CK Total, Lipid Panel Test Result Flag Reference Site AST (GOT) 16 5-31 U/L ALT (GPT) 25 0-31 U/L CK Total 48 26-140 U/L Triglyceride 155 mg/dL Desirable Triglyceride: less than 150 mg/dL Borderline High Triglyceride 150-199 mg/dL High Triglyceride: 200-499 mg/dL Very High Triglyceride: greater than or equal to 5OO mg/dL Chol 213 mg/dL Desirable Cholesterol: less than 200 mg/dL Borderline High Cholesterol: 200-239 mg/dL High Cholesterol: greater than 239 mg/dL LDL Calculated 106 mg/dl Desirable LDL: less than 100 mg/dL Near Optimal/Above Optimal LDL: 110-129 mg/dL Borderline High LDL: 130-159 mg/dL High LDL: 160-189 mg/dL Very High LDL: greater than or equal to 190 mg/dL HDL 76 # mg/dL Desirable HDL: greater than 40 mg/dL Note: This HDL assay may give artificially low results in patients with liver disease. Laboratory Tests 01/24/22 07:09 TSH 3.91 Free T4 1.30 Assessment and Plan Assessment & Plan (1) Acquired hypothyroidism: Code(s): E03.9 - Hypothyroidism, unspecified Plan: Thyroid levels are within normal limits, continue with current dose of levothyroxine 50 mcg daily (2) Dyslipidemia: Code(s): E78.5 - Hyperlipidemia, unspecified Plan: Reviewed recent fasting lipid results with patient, LDL cholesterol still above 100, goal LDL is 70 and below. Will continue on rosuvastatin 40 mg daily, and reinforced importance of following low-cholesterol diet getting regular exercise. advised to quit smoking. Coding Level of Care Code Est Pt Level 3 (46715) Diagnoses Acquired hypothyroidism E03.9 Dyslipidemia E78.5 Additional Codes MIKHAIL-7 Assessment Billing - MIKHAIL-7 Assessment Tool: MIKAHIL-7 Assessment 79213 ([id number])
[2022-09-04 15:33] VITALS: BP 134/70; PULSE 78; O2SAT 94; BMI 26.2
== END 2022-09-04 16:16 | disposition home or self-care (01) ==
LOC: HO.HMGC 14:49
PROVIDERS: PCP Internal Medicine; Visit Provider Internal Medicine
DX: E03.9 Hypothyroidism, unspecified (principal); E78.5 Hyperlipidemia, unspecified
CPT/HCPCS: 99499

== ENCOUNTER 2023-04-21 13:01 | Outpatient (AMB) | payer OTHER, SELFPAY ==
--- NOTE | 2023-04-21 13:41 | MHC.PC.OV ---
Vital Signs 04/21/23 13:45 04/21/23 14:39 Height 5 ft Weight 137 lb BMI 26.8 BP 146/70 H 132/66 Blood Pressure Location Rt brachial Position Sitting Pulse 80 Pulse Source Pulse Oximeter Pulse Oximetry (%) 97 Oxygen Delivery Method Room Air Intake Visit Reasons: Followup meds Intake Note: Pt is here today for her med follow-up Allergies Codeine Sulfate Adverse Reaction (Unknown, Uncoded 04/21/23 14:08) nausea Medication List - Last Reconciled 04/21/23 by Kalina Palacios MD aspirin 81 mg PO DAILY escitalopram oxalate 10 mg PO DAILY estradiol (Yuvafem) 10 mcg vaginal 2XW gabapentin 100 mg PO DAILY levothyroxine 50 mcg PO DAILY meclizine 25 mg PO TID PRN omeprazole 20 mg PO DAILY ondansetron HCl 4 mg PO Q12H PRN rosuvastatin 40 mg PO BEDTIME Tobacco use date assessed: 04/21/23 Fall risk assessment: No Falls in past year Last assessed Fall Risk: 04/21/23 Dental Screening Dental Screen Date: 04/21/23 Did you have a dental visit in the last 12 months?: No Was dental information given to patient?: Patient has dentist HPI Followup meds HPI Details 68-year-old lady with hypothyroidism, chronic GERD, dyslipidemia generalized anxiety disorder, here today for follow-up. She has been compliant with taking medications, but complains of having difficulty [facility]. Patient states that she sees [facility] only via telehealth, and sees different therapist at all times, some of them coming from [facility]. She also has been complaining that they frequently send the wrong escitalopram dose, supposed to be on 10 mg once a day but there have been times at the only been calling in 5 mg tablet dose. She is going to be retiring by next month, and has been having frequent anxiety attacks lately just thinking about impending half-way. 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 [facility] Medical History Chronic GERD Dizziness Dyslipidemia Generalized anxiety disorder History of recurrent TIAs Patent foramen ovale with atrial septal aneurysm TIA (transient ischemic attack) Surgical History Hx of colonoscopy Family History Father Coronary artery disease Brother Coronary artery disease Paternal Grandmother Breast cancer Social History Housing: House Alcohol intake: current Patient Tobacco Use Status: Current someday Tobacco user Cigarettes Per Day: 2 e-Cigarette/Vaping Use: Never Used Second Hand Smoke Exposure: No service: No Current occupational status: employed Cognitive needs: No Hearing needs: No Vision needs: No Questionnaire PHQ-9 Over the last 2 weeks, how often have you been bothered by any of the following problems? Depression Screening Interpretation: Negative Source: Developed by Drs. Jason Grimes, Gem Beckford, Atul Miramontes and colleagues, with an educational ed from [employer]. Thrive Questionnaire Date Thrive assessed: 09/04/22 MIKHAIL-7 AMB Questionnaire MIKHAIL-7 Date MIKHAIL - 7 assessed: 09/04/22 Source: Developed by Drs. Jason Grimes, Gem Beckford, Atul Miramontes and colleagues, with an educational ed from [employer]. Review of Systems Const Denies body aches, Reports difficulty sleeping (Occasional), Denies fatigue, Denies headache(s) and Denies poor appetite ENT Reports Normal hearing present, Denies dizziness, Denies headache(s) and Denies disequilibrium Card Denies chest pain, Denies rapid heart rate, Denies irregular heart rhythm and Denies dyspnea Resp Denies chest congestion, Denies cough and Denies dyspnea GI Denies abdominal pain, Denies change in bowel habits, Denies change in stool character and Reports heartburn Reports no additional complaints Musc Reports no additional complaints Neuro Reports Normal hearing present, Denies dizziness, Denies headache(s), Denies Sensory deficit (Neuro), Reports paresthesias and Denies disequilibrium Psych Reports as per HPI Endo Denies fatigue Physical exam (Primary Care) Vital Signs: Last Vital Signs Pulse 80 04/21/23 13:45 BP 132/66 04/21/23 14:39 Pulse Ox 97 04/21/23 13:45 Oxygen Delivery Method Room Air 04/21/23 13:45 BMI result Body Mass Index 26.8 Tobacco/Smoking Status: Tobacco use Status Tobacco use date assessed 04/21/23 04/21/23 13:49 Patient Tobacco Use Status Current someday Tobacco 04/21/23 13:41 e-Cigarette/Vaping Use Never Used 04/21/23 13:41 Depression Screening Interpretation: Negative Thrive Assessment: Date of Thrive Assessment Date Thrive assessed 09/04/22 04/21/23 13:41 Const General: comfortable, no acute distress and alert Orientation/consciousness: patient oriented x3 HENMT Mouth: oropharynx normal and moist mucous membranes Eyes General: appearance normal, both eyes and all related structures Neck Neck: Yes full ROM, Yes no lymphadenopathy and Yes supple Resp Effort & Inspection: normal respiratory effort and able to speak in complete sentences Auscultation: clear to auscultation bilaterally Cardio Rate: regular rate Rhythm: regular rhythm Heart sounds: S1 normal heart sound present and S2 normal heart sound present GI Palpation (GI): Soft to palpation, nontender and no masses Auscultation: normal bowel sounds Neuro General: patient oriented x3, gait normal, tone normal, moves all extremities, Normal light touch and pain sensation and no focal motor deficits Cranial nerves: Yes Normal hearing present Cognition (Neuro): normal cognition Sensory Exam: No Sensory deficit (Neuro) Extrem General: Yes full ROM, Yes no joint enlargement, Yes no clubbing, cyanosis or edema and Yes no calf tenderness Psych Appearance: grossly normal and well kempt Mental Status: mental status grossly normal Speech and movement: Normal speech and movement present Affect: Anxious affect present Attitude: cooperative Thought process: Normal thought process present Immunizations pneumoc 20-hubert conj-dip cr(PF) Performing Provider: Kalina Palacios MD Administered by: Ivone Altamirano CMA on 04/21/23 14:37 Dose Route Admin Location Lot Number Expiration Date NDC Credit Administration Manager 0.5 mL IM Right Deltoid [id number] 06/23/24 6011-9214-31 [employer] VIS Given Date VIS Provided VIS Publication Date 04/21/23 Single Vaccine 21 Eligibility Eligibility Date Funding Source Not VFC Eligible 04/21/23 Private Assessment and Plan Assessment & Plan (1) Acquired hypothyroidism: Code(s): E03.9 - Hypothyroidism, unspecified (2) Chronic GERD: Code(s): K21.9 - Gastro-esophageal reflux disease without esophagitis (3) Generalized anxiety disorder: Code(s): F41.1 - Generalized anxiety disorder (4) Dyslipidemia: Code(s): E78.5 - Hyperlipidemia, unspecified Plan Will continue current medication, fasting labs ordered today. Patient is in contact with our mental health coordinator who is going to be referred her to a different psych provider. Prevnar 20 given today Orders: Orders Vitamin B12 and Folate 04/21/23 E03.9 - Hypothyroidism, unspecified, E78.5 - Hyperlipidemia, unspecified, F41.1 - Generalized anxiety disorder, K21.9 - Gastro-esophageal reflux disease without esophagitis Comprehensive [place]. Panel Fast 04/21/23 E03.9 - Hypothyroidism, unspecified, E78.5 - Hyperlipidemia, unspecified, F41.1 - Generalized anxiety disorder, K21.9 - Gastro-esophageal reflux disease without esophagitis Lipid Panel 04/21/23 E03.9 - Hypothyroidism, unspecified, E78.5 - Hyperlipidemia, unspecified, F41.1 - Generalized anxiety disorder, K21.9 - Gastro-esophageal reflux disease without esophagitis TSH reflex Free T4 04/21/23 E03.9 - Hypothyroidism, unspecified, E78.5 - Hyperlipidemia, unspecified, F41.1 - Generalized anxiety disorder, K21.9 - Gastro-esophageal reflux disease without esophagitis Vitamin D 25-OH Total 04/21/23 E03.9 - Hypothyroidism, unspecified, E78.5 - Hyperlipidemia, unspecified, F41.1 - Generalized anxiety disorder, K21.9 - Gastro-esophageal reflux disease without esophagitis Complete Blood Count Auto Diff 04/21/23 E03.9 - Hypothyroidism, unspecified, E78.5 - Hyperlipidemia, unspecified, F41.1 - Generalized anxiety disorder, K21.9 - Gastro-esophageal reflux disease without esophagitis Pneumococcal 20 Immunization 04/21/23 Z23 - Encounter for immunization Coding Level of Care Code Tele Est Pt Level 4 (07197) Diagnoses Acquired hypothyroidism E03.9 Chronic GERD K21.9 Generalized anxiety disorder F41.1 Dyslipidemia E78.5
[2023-04-21 13:45] VITALS: BP 146/70; PULSE 80; O2SAT 97; BMI 26.8
[2023-04-21 14:39] VITALS: BP 132/66
== END 2023-04-21 14:38 | disposition home or self-care (01) ==
PROVIDERS: PCP Internal Medicine; Visit Provider Internal Medicine
DX: Z23 Encounter for immunization (principal)
CPT/HCPCS: 90471; 90677; 99214

== ENCOUNTER 2023-04-24 06:59 | Outpatient (REF) | payer MEDICARE, SELFPAY ==
[2023-04-24 11:34] LABS: MANUAL DIFF FLAG NO
[2023-04-24 11:46] LABS: Basophils Percent Auto 0.4 % (0-2); Eosinophils Absolute Auto 0.1 X10*3/uL (0.0-0.4); Eosinophils Percent Auto 1.4 % (0-4); Hematocrit 42.5 % (37.0-47.0); Hemoglobin 13.6 g/dl (12.0-16.0); Imm Gran Abs Auto 0.02 X10*3/uL (0.00-0.03); Imm Gran Pct Auto 0.3 % (0.0-0.4); Lymphocytes Absolute Auto 2.9 X10*3/uL (1.2-4.9); Lymphocytes Percent Auto 41.1 % (20-40); Mean Corpuscular Volume 93.8 fL (80.0-98.0); Mean Platelet Volume 10.2 fL (9.4-12.3); Monocytes Absolute Auto 0.5 X10*3/uL (0.1-1.2); Monocytes Percent Auto 7.1 % (2-11); Neutrophils Absolute Auto 3.5 x10*3/uL (2.0-8.3); Neutrophils Percent Auto 49.7 % (45-73); Platelet Count 297 X10*3/uL (160-400); Red Blood Count 4.53 X10*6/uL (4.20-5.50); Red Cell Distribution Width 14.4 % (11.0-16.0); White Blood Count 7.1 X10*3/uL (4.8-10.8)
[2023-04-24 12:26] LABS: Alanine Aminotransferase 21 U/L (0-31); Albumin Level 4.2 g/dL (3.5-5.0); Alkaline Phosphatase 68 U/L (39-117); Anion Gap 15 (12-20); Aspartate Amino Transferase 17 U/L (5-31); Bilirubin Total 0.6 mg/dL (0.0-1.0); Blood Urea Nitrogen 10 mg/dL (9-16); Calcium 9.9 mg/dL (8.4-10.2); Carbon Dioxide 24 mmol/L (22-29); Chloride 105 mmol/L (96-108); Cholesterol 190 mg/dL (<200); Estimated Glomerular Filt Rate > 60; Glucose Fasting 112 mg/dL (60-99); HDL Cholesterol 72 mg/dL (>40); LDL Cholesterol Calculated 96 mg/dL (<100); Potassium 4.1 mmol/L (3.3-5.1); Sodium 140 mmol/L (135-145); TSH reflex Free T4 2.89 uIU/mL (0.32-4.0); Total Protein 6.7 g/dL (6.5-8.0); Triglycerides 114 mg/dL (<150)
[2023-04-24 12:40] LABS: Folate 6.7 ng/mL (> or = 4.0); Vitamin B12 317 pg/mL (200-900)
== END 2023-04-24 07:00 | disposition home or self-care (01) ==
LOC: HO.HMGCLDS 06:59
PROVIDERS: PCP Internal Medicine; Visit Provider Internal Medicine
DX: E03.9 Hypothyroidism, unspecified (principal); F41.1 Generalized anxiety disorder; K21.9 Gastro-esophageal reflux disease without esophagitis; E78.5 Hyperlipidemia, unspecified
CPT/HCPCS: 36415; 80053; 80061; 82306; 82607; 82746; 84443; 85025

== ENCOUNTER 2023-06-05 08:21 | Outpatient (AMB) | payer MEDICARE, SELFPAY ==
[2023-06-05 09:03] VITALS: BP 120/74; O2SAT 99
--- NOTE | 2023-06-05 09:03 | AM.OFFWIN_ITS ---
Intake Vital Signs 06/05/23 09:03 BP 120/74 Blood Pressure Location Lt brachial Position Sitting Pulse Oximetry (%) 99 Oxygen Delivery Method Room Air Intake Visit Reasons: EP RT ankle Intake Note: pt here today for ep rt ankle Patient Tobacco Use Status: Current someday Tobacco user Allergies Codeine Sulfate Adverse Reaction (Unknown, Uncoded 06/05/23 09:05) nausea Do you need a note to return to daycare/school/sports/work: No HPI HPI Comments History of Present Illness Details This is a 68-year-old female who presents to the office today for sick visit. Patient complaining of right foot pain. Patient dropped a vase on her right foot 3 weeks ago and she has but having intermittent parents since then. No swelling or erythema. No calf pain or swelling. She states the pain is mostly brought on with ambulating and weight-bearing. She did wear a tight sock the other day, which seemed to help with the pain. PFSH Medical History Dizziness History of recurrent TIAs Patent foramen ovale with atrial septal aneurysm TIA (transient ischemic attack) Chronic GERD Generalized anxiety disorder Dyslipidemia Surgical History Hx of colonoscopy Family History Father Coronary artery disease Brother Coronary artery disease Paternal Grandmother Breast cancer Social History Housing: House Alcohol intake: current Patient Tobacco Use Status: Current someday Tobacco user Cigarettes Per Day: 2 e-Cigarette/Vaping Use: Never Used Second Hand Smoke Exposure: No service: No Current occupational status: employed Cognitive needs: No Hearing needs: No Vision needs: No Review of Systems Const All systems reviewed & are unremarkable except as noted in HPI and below Reports no additional complaints Eyes Reports no additional complaints ENT Reports no additional complaints Card Reports no additional complaints Resp Reports no additional complaints GI Reports no additional complaints Reports no additional complaints Musc Reports no additional complaints Skin/Breast Reports system reviewed and no additional complaints, except as documented Neuro Reports no additional complaints Psych Reports no additional complaints Endo Reports no additional complaints [place]/Lymph Reports no additional complaints Aller/Immun Reports no additional complaints Physical Exam Vital Signs: Last Vital Signs BP 120/74 06/05/23 09:03 Pulse Ox 99 06/05/23 09:03 Oxygen Delivery Method Room Air 06/05/23 09:03 Const Other: Vital signs reviewed. Constitutional: Non-toxic appearing. No acute distress. Well-developed and well-nourished. HEENT: Normocephalic and atraumatic. Tympanic membranes without erythema, edema, or bulging bilaterally. External auditory canals without erythema or edema bilaterally. Moist mucous membranes. No pharyngeal erythema or exudates. Skin: Warm and dry. No rashes or lesions noted. Neck: Full and painless range of motion. No cervical lymphadenopathy. Cardio: Regular rate and rhythm. No murmurs, gallops, or rubs. No lower ext remity edema. No JVD. Pulmonary: No respiratory distress. No accessory muscle usage. Clear to auscultation bilaterally without wheezing, crackles, or rhonchi. Gastrointestinal: Soft, nontender, and nondistended in all 4 quadrants. Normoactive bowel sounds in all 4 quadrants. Genitourinary: No CVA tenderness. Musculoskeletal: Normal range of motion in joints throughout the body. No deformity or other signs of injury. Minimal tenderness to palpation of the right foot and right metatarsals. No swelling, ecchymosis, or erythema. No calf tenderness to palpation or swelling. Negative Homans sign. Neuro: Alert and oriented x4. Cranial nerves 2-12 grossly intact. No focal deficits appreciated. Psych: Normal mood and affect. Assessment & Plan Assessment & Plan (1) Right foot pain: Code(s): M79.671 - Pain in right foot Plan This is a 68-year-old female presenting to the office complaining of right foot pain after dropping a vase on her foot 3 weeks ago. Differential diagnosis includes fracture versus contusion versus sprain/strain. Check an x-ray of the right foot. Recommend rest/activity modification, ice to the area, compression with ashley bandage, and elevation of the extremity. Continue with acetaminophen/ibuprofen for pain management as long as patient has no medical contraindications. Patient advised to follow-up here go to the emergency room if she were to develop persistent/worsening symptoms such as swelling, pain, erythema, or calf pain/swelling. Patient verbalized understanding and is agreeable with the plan. Orders: Orders XR foot RT 2V Today M79.671 - Pain in right foot Coding Level of Care Code Est Pt Level 3 (74671) Diagnoses Right foot pain M79.671
== END 2023-06-05 09:59 | disposition home or self-care (01) ==
PROVIDERS: PCP Internal Medicine; Visit Provider Physician Assistant Medical
DX: M79.671 Pain in right foot (principal)
CPT/HCPCS: 99213

== ENCOUNTER 2023-06-05 09:28 | Outpatient (REF) | payer MEDICARE, SELFPAY ==
--- NOTE | ~2023-06-05 | XR_ITS ---
EXAMINATION: XR FOOT, RIGHT CLINICAL INFORMATION: Right foot pain. COMPARISON: None available. TECHNIQUE: AP, lateral, and oblique views of the right foot. FINDINGS: The bones and soft tissues are normal. No fracture. Alignment is anatomic. Joint spaces are maintained. XR/XR foot RT 2V IMPRESSION: Unremarkable right foot.
== END 2023-06-05 09:29 | disposition home or self-care (01) ==
LOC: HO.HMGCX 09:28
PROVIDERS: PCP Internal Medicine; Visit Provider Physician Assistant Medical
DX: M79.671 Pain in right foot (principal)
CPT/HCPCS: 73620

== ENCOUNTER 2023-06-25 10:59 | Outpatient (AMB) | payer MEDICARE, SELFPAY ==
[2023-06-25 11:10] VITALS: BP 130/60; PULSE 77; TEMP 36.6; O2SAT 94; BMI 26.2
--- NOTE | 2023-06-25 11:10 | MHC.OFFWIV ---
Intake Vital Signs 06/25/23 11:10 Height 5 ft Weight 60.781 kg BMI 26.2 BP 130/60 Blood Pressure Location Lt brachial Position Sitting Pulse 77 Pulse Source Pulse Oximeter Temp 97.8 F Temp Source Temporal Artery Scan Pulse Oximetry (%) 94 Oxygen Delivery Method Room Air Intake Visit Reasons: EST/reevaluation of right foot(lobby) Intake Note: pt is here for c/o right foot due to vase dropped on foot 6 weeks ago Patient Tobacco Use Status: Current someday Tobacco user Allergies Codeine Sulfate Adverse Reaction (Unknown, Uncoded 06/25/23 11:10) nausea Do you need a note to return to daycare/school/sports/work: Yes HPI HPI Comments History of Present Illness Details 1125 68 year old female presents w/ right foot pain X 5-6 weeks reports she dropped a vase on her foot 6 weeks ago since then has been having some discomfort on the top of her foot however now pain is transitioning into the arch of her foot and she thinks this is secondary to her limping from pain. She had a normal x-ray was told to take ibuprofen which she has not been taking. She reports pain is worse with movement in the 1st few steps in the morning or much worse. Denies numbness, tingling, fevers or chills. Physical exam with discomfort with palpation to the arch of the right foot, no overlying skin changes. 2+ dorsalis pedis anterior tibialis and posterior tibialis pulses equal bilateral. Full range of motion painless to bilateral ankles. No foot drop. Normal sensation distally History and physical exam concerning for right foot pain likely secondary to plantar fasciitis or contusion of right foot secondary to trauma about 5-6 weeks ago. Unlikely neurovascular compromise, threat to Clement, arterial or venous occlusion. I do not suspect a cellulitis. No signs of septic joint Plan will discharge with naproxen and prednisone as well as an ortho consult. Educated patient on diagnosis and treatment plan, answered all question, patient verbalizes understanding. At this time patient will be discharged home, advised to return with new or worsening symptoms. Educated on worrisome signs and symptoms and when to return. At this time I feel comfortable discharge home. [facility] Medical History Dizziness History of recurrent TIAs Patent foramen ovale with atrial septal aneurysm TIA (transient ischemic attack) Chronic GERD Generalized anxiety disorder Dyslipidemia Surgical History Hx of colonoscopy Family History Father Coronary artery disease Brother Coronary artery disease Paternal Grandmother Breast cancer Social History Housing: House Alcohol intake: current Patient Tobacco Use Status: Current someday Tobacco user Cigarettes Per Day: 2 e-Cigarette/Vaping Use: Never Used Second Hand Smoke Exposure: No service: No Current occupational status: employed Cognitive needs: No Hearing needs: No Vision needs: No Review of Systems Const Details: Constitutional : No Weight loss, No Fever, No Chills, No Fatigue, No Malaise ENT/Mouth : No sore throat, No Rhinorrhea Eyes: No Eye Pain, No Swelling, No Redness Cardiovascular : No Chest Pain, No SOB, No Dyspnea on Exertion, No Orthopnea, No Edema, No Palpitations Respiratory : No Cough, No Sputum, No Wheezing Gastrointestinal : No Nausea, No Vomiting, No Diarrhea, No Constipation, No abdominal Pain, No Hematochezia, No Melena Genitourinary : No Dysuria, No Urinary Frequency, No Hematuria, Musculoskeletal : + joint pain, No Myalgias, + Joint Swelling Skin : No Skin Lesions, No rash Neuro : No Weakness, No Numbness, No Dizziness, No Headache Psych : No Anxiety/Panic, No Depression All other systems reviewed and are negative All systems reviewed & are unremarkable except as noted in HPI and below Physical Exam Vital Signs: Last Vital Signs Temp 97.8 F 06/25/23 11:10 Pulse 77 06/25/23 11:10 BP 130/60 06/25/23 11:10 Pulse Ox 94 06/25/23 11:10 Oxygen Delivery Method Room Air 06/25/23 11:10 BMI result Body Mass Index 26.2 vss Appearance: Alert.? Oriented X3.? No acute distress.? Head: Normocephalic, atraumatic, no step-offs or deformities Eyes: Pupils equal, round and reactive to light.? CVS: Normal heart rate and rhythm.? Pulses normal.? Respiratory: No respiratory distress.? Breath sounds normal.? Abdomen: Soft and nontender.? Skin: Skin warm and dry.? Normal skin color.? Normal skin turgor.? Extremities: No lower extremity edema.? No calf ttp. 5/5 strength to bilateral upper and lower extremities + discomfort with palpation to the arch of the right foot, no overlying skin changes. 2+ dorsalis pedis anterior tibialis and posterior tibialis pulses equal bilateral. Full range of motion painless to bilateral ankles. No foot drop. Normal sensation distally Back: No midline tenderness, no C-spine tenderness, full range of motion, no CVA tenderness bilaterally Neuro: Oriented X 3.? No motor deficit.? No sensory deficit. CN 2-12 intact Assessment & Plan Assessment & Plan (1) Right foot pain: Code(s): M79.671 - Pain in right foot Plan Take your medications as prescribed. If you were prescribed antibiotics today, it is important that you take your medication to their entirety, do not skip any doses, do not finish them early. Follow-up with your primary care provider this week. Return to the emergency department with new or worsening symptoms. Such as fevers, chills, chest pain, shortness of breath, nausea, vomiting, dizziness, headache, vision changes, lethargy In case of emergency call 911 Orders: Referrals Orthopedics Referral M79.671 - Pain in right foot Medications: New naproxen 500 mg PO BID PRN 14 tabs 0RF pain prednisone 20 mg PO DAILY 5 tabs 0RF 5 days Coding Level of Care Code Est Pt Level 3 (19025) Diagnoses Right foot pain M79.671
== END 2023-06-25 11:37 | disposition home or self-care (01) ==
PROVIDERS: PCP Internal Medicine; Visit Provider Physician Assistant
DX: M79.671 Pain in right foot (principal)
CPT/HCPCS: 99213

== ENCOUNTER 2023-09-04 08:43 | Outpatient (AMB) | payer MEDICARE, SELFPAY ==
[2023-09-04 09:08] VITALS: BP 138/78; PULSE 73; TEMP 36.7; O2SAT 100; BMI 26.8
--- NOTE | 2023-09-04 09:08 | A.OFFPC_ITS ---
Vital Signs 09/04/23 09:08 Height 5 ft Weight 137 lb 2 oz BMI 26.8 BP 138/78 Blood Pressure Location Rt brachial Position Sitting Pulse 73 Pulse Source Pulse Oximeter Temp 98.0 F Temp Source Temporal Artery Scan Pulse Oximetry (%) 100 Oxygen Delivery Method Room Air Intake Visit Reasons: Followup Urgent Care x 2 Allergies Codeine Sulfate Adverse Reaction (Unknown, Uncoded 09/04/23 09:24) nausea Medication List - Last Reconciled 09/04/23 by Kalina Palacios MD alprazolam 0.5 mg PO DAILY PRN aspirin 81 mg PO DAILY escitalopram oxalate 10 mg PO DAILY famotidine 20 mg PO DAILY PRN levothyroxine 50 mcg PO DAILY meclizine 25 mg PO TID PRN naproxen 500 mg PO BID PRN omeprazole 20 mg PO DAILY Tobacco use date assessed: 09/04/23 Fall risk assessment: No Falls in past year Last assessed Fall Risk: 09/04/23 HPI Followup Urgent Care x 2 HPI Details 68-year-old lady here today for follow-u p. She has been seen at [facility] MD twice a day already initially diagnosed 08/20/23 to have streptococcal pharyngitis and prescribed amoxicillin twice a day for 10 days and benzonatate Perles which has helped but still coughing. She was checked for flu which came back negative at that time. Patient checked for COVID at home and test also came back neck. She went back to them again 08/28/2019 complaining of cold symptoms which has been present now since the initial visit there accompanied by body aches and dry cough and fatigue. Sore throat has resolved she was then given another course of antibiotic with amoxicillin for 10 days and placed back on benzonatate per which has not afforded any relief. Salty here for follow-up on her hypothyroidism, hyperlipidemia PFSH Medical History Dizziness History of recurrent TIAs Patent foramen ovale with atrial septal aneurysm TIA (transient ischemic attack) Chronic GERD Generalized anxiety disorder Dyslipidemia Surgical History Hx of colonoscopy Family History Father Coronary artery disease Brother Coronary artery disease Paternal Grandmother Breast cancer Social History Housing: House Alcohol intake: current Patient Tobacco Use Status: Current everyday Tobacco user Cigarettes Per Day: 2 e-Cigarette/Vaping Use: Never Used Second Hand Smoke Exposure: No service: No Current occupational status: employed Cognitive needs: No Hearing needs: No Vision needs: No Questionnaire Thrive Questionnaire Date Thrive assessed: 09/04/22 MIKHAIL-7 AMB Questionnaire MIKHAIL-7 Date MIKHAIL - 7 assessed: 09/04/22 Source: Developed by Drs. Jason Grimes, Gem Beckford, Atul Miramontes and colleagues, with an educational ed from [employer]. Review of Systems Const All systems reviewed & are unremarkable except as noted in HPI and below Physical exam (Primary Care) Vital Signs: Last Vital Signs Temp 98.0 F 09/04/23 09:08 Pulse 73 09/04/23 09:08 BP 138/78 09/04/23 09:08 Pulse Ox 100 09/04/23 09:08 Oxygen Delivery Method Room Air 09/04/23 09:08 BMI result Body Mass Index 26.8 Tobacco/Smoking Status: Tobacco use Status Tobacco use date assessed 09/04/23 09/04/23 09:16 Patient Tobacco Use Status Current everyday Tobacco 09/04/23 09:16 e-Cigarette/Vaping Use Never Used 09/04/23 09:16 Thrive Assessment: Date of Thrive Assessment Date Thrive assessed 09/04/22 09/04/23 09:16 Const General: comfortable, no acute distress and alert Orientation/consciousness: patient oriented x3 HENMT Ears: external ears normal, TM's normal bilaterally and EAC's normal Mouth: oropharynx normal and moist mucous membranes Eyes General: appearance normal, both eyes and all related structures Neck Neck: Yes full ROM, Yes no lymphadenopathy and Yes supple Resp Effort & Inspection: normal respiratory effort and able to speak in complete sentences Auscultation: clear to auscultation bilaterally Cardio Rate: regular rate Rhythm: regular rhythm Heart sounds: S1 normal heart sound present and S2 normal heart sound present GI Palpation (GI): Soft to palpation, nontender and no masses Auscultation: normal bowel sounds Neuro General: patient oriented x3, gait normal, tone normal, moves all extremities and no focal motor deficits Extrem General: Yes full ROM and Yes no clubbing, cyanosis or edema Assessment and Plan Assessment & Plan (1) Persistent dry cough: Code(s): R05.3 - Chronic cough Plan: Will check for RSV, influenza and COVID, continue benzonatate Perles as needed for cough (2) Fatigue: Code(s): R53.83 - Other fatigue Qualifiers: Fatigue type: unspecified Qualified Code(s): R53.83 - Other fatigue Plan: Likely residual from recent infection, will check CBC with differential, TSH and free T4, vitamin-D level, vitamin B12 folate (3) Acquired hypothyroidism: Code(s): E03.9 - Hypothyroidism, unspecified Plan: Will check TSH and free T4, continue with current dose of levothyroxine 50 mcg daily (4) Dyslipidemia: Code(s): E78.5 - Hyperlipidemia, unspecified Plan: Fasting lipid panel ordered, adherence to low-cholesterol diet and getting regular exercise reinforced Orders: Orders Vitamin D 25-OH Total 09/04/23 E03.9 - Hypothyroidism, unspecified, R53.83 - Other fatigue, K21.9 - Gastro-esophageal reflux disease without esophagitis, E78.5 - Hyperlipidemia, unspecified, E89.40 - Asymptomatic postprocedural ovarian failure, R05.3 - Chronic cough Lipid Panel 09/04/23 E03.9 - Hypothyroidism, unspecified, R53.83 - Other fatigue, K21.9 - Gastro-esophageal reflux disease without esophagitis, E78.5 - Hyperlipidemia, unspecified, E89.40 - Asymptomatic postprocedural ovarian failure, R05.3 - Chronic cough Free T4 (Free Thyroxine) 09/04/23 E03.9 - Hypothyroidism, unspecified, R53.83 - Other fatigue, K21.9 - Gastro-esophageal reflux disease without esophagitis, E78.5 - Hyperlipidemia, unspecified, E89.40 - Asymptomatic postprocedural ovarian failure, R05.3 - Chronic cough SARS-CoV2/FLU/RSV 09/04/23 R53.83 - Other fatigue, R05.3 - Chronic cough Vitamin B12 and Folate 09/04/23 E03.9 - Hypothyroidism, unspecified, R53.83 - Other fatigue, K21.9 - Gastro-esophageal reflux disease without esophagitis, E78.5 - Hyperlipidemia, unspecified, E89.40 - Asymptomatic postprocedural ovarian failure, R05.3 - Chronic cough Thyroid Stimulating Hormone 09/04/23 E03.9 - Hypothyroidism, unspecified, R53.83 - Other fatigue, K21.9 - Gastro-esophageal reflux disease without esophagitis, E78.5 - Hyperlipidemia, unspecified, E89.40 - Asymptomatic postprocedural ovarian failure, R05.3 - Chronic cough Complete Blood Count Auto Diff 09/04/23 E03.9 - Hypothyroidism, unspecified, R53.83 - Other fatigue, K21.9 - Gastro-esophageal reflux disease without esophagitis, E78.5 - Hyperlipidemia, unspecified, E89.40 - Asymptomatic postprocedural ovarian failure, R05.3 - Chronic cough Basic Metabolic Panel Fasting 09/04/23 E03.9 - Hypothyroidism, unspecified, R53.83 - Other fatigue, K21.9 - Gastro-esophageal reflux disease without esophagitis, E78.5 - Hyperlipidemia, unspecified, E89.40 - Asymptomatic postprocedural ovarian failure, R05.3 - Chronic cough Coding Level of Care Code Est Pt Level 3 (88620) Diagnoses Persistent dry cough R05.3 Fatigue, unspecified type R53.83 Fatigue type: unspecified Acquired hypothyroidism E03.9 Dyslipidemia E78.5
== END 2023-09-04 15:58 | disposition home or self-care (01) ==
PROVIDERS: PCP Internal Medicine; Visit Provider Internal Medicine
DX: R05.3 Chronic cough (principal); R53.83 Other fatigue; E03.9 Hypothyroidism, unspecified; E78.5 Hyperlipidemia, unspecified
CPT/HCPCS: 99213

== ENCOUNTER 2023-09-04 09:44 | Outpatient (REF) | payer MEDICARE, SELFPAY ==
[2023-09-04 12:06] LABS: Influenza A PCR NEGATIVE (Negative); Influenza B PCR NEGATIVE (Negative); Resp Syncy Virus RNA Qual PCR NEGATIVE (Negative); SARS COV2 PCR INHOUSE NEGATIVE (Negative)
[2023-09-04 13:19] LABS: MANUAL DIFF FLAG NO
[2023-09-04 13:22] LABS: Basophils Percent Auto 0.5 % (0-2); Eosinophils Percent Auto 0.5 % (0-4); Hematocrit 36.8 % (37.0-47.0); Hemoglobin 12.1 g/dl (12.0-16.0); Imm Gran Abs Auto 0.03 X10*3/uL (0.00-0.03); Imm Gran Pct Auto 0.4 % (0.0-0.4); Lymphocytes Absolute Auto 2.4 X10*3/uL (1.2-4.9); Lymphocytes Percent Auto 32.7 % (20-40); Mean Corpuscular HGB Conc 32.9 g/dl (31.0-35.0); Mean Corpuscular Hemoglobin 31.4 pg (27.0-33.0); Mean Corpuscular Volume 95.6 fL (80.0-98.0); Mean Platelet Volume 9.5 fL (9.4-12.3); Monocytes Absolute Auto 0.6 X10*3/uL (0.1-1.2); Monocytes Percent Auto 8.4 % (2-11); Neutrophils Absolute Auto 4.2 x10*3/uL (2.0-8.3); Neutrophils Percent Auto 57.5 % (45-73); Platelet Count 451 X10*3/uL (160-400); Red Blood Count 3.85 X10*6/uL (4.20-5.50); Red Cell Distribution Width 14.2 % (11.0-16.0); White Blood Count 7.4 X10*3/uL (4.8-10.8)
[2023-09-04 14:14] LABS: Anion Gap 10 (12-20); Blood Urea Nitrogen 8 mg/dL (9-16); Calcium 8.8 mg/dL (8.4-10.2); Carbon Dioxide 29 mmol/L (22-29); Chloride 107 mmol/L (96-108); Cholesterol 147 mg/dL (<200); Estimated Glomerular Filt Rate > 60; Free T4 (Free Thyroxine) 1.02 ng/dL (0.71-1.85); Glucose Fasting 103 mg/dL (60-99); HDL Cholesterol 60 mg/dL (>40); LDL Cholesterol Calculated 70 mg/dL (<100); Potassium 4.3 mmol/L (3.3-5.1); Sodium 142 mmol/L (135-145); Thyroid Stimulating Hormone 1.93 uIU/mL (0.32-4.0); Triglycerides 87 mg/dL (<150); Vitamin D 25-OH Total 47.2 ng/mL (>30)
[2023-09-04 14:36] LABS: Folate 7.2 ng/mL (> or = 4.0); Vitamin B12 398 pg/mL (200-900)
== END 2023-09-04 09:45 | disposition home or self-care (01) ==
LOC: HO.HMGCLDS 09:44
PROVIDERS: PCP Internal Medicine; Visit Provider Internal Medicine
DX: E03.9 Hypothyroidism, unspecified (principal); K21.9 Gastro-esophageal reflux disease without esophagitis; E78.5 Hyperlipidemia, unspecified; E89.40 Asymptomatic postprocedural ovarian failure; R53.83 Other fatigue; R05.3 Chronic cough; Z11.52 Encounter for screening for COVID-19; Z20.828 Contact with and (suspected) exposure to other viral communicable diseases
CPT/HCPCS: 0241U; 36415; 80048; 80061; 82306; 82607; 82746; 84439; 84443; 85025

== ENCOUNTER 2024-06-23 10:40 | Outpatient (REF) | payer MEDICARE, SELFPAY ==
[2024-06-23 13:18] LABS: MANUAL DIFF FLAG NO
[2024-06-23 13:40] LABS: Basophils Percent Auto 0.3 % (0-2); Eosinophils Absolute Auto 0.1 X10*3/uL (0.0-0.4); Eosinophils Percent Auto 0.8 % (0-4); Hematocrit 40.4 % (37.0-47.0); Hemoglobin 13.1 g/dl (12.0-16.0); Imm Gran Abs Auto 0.02 X10*3/uL (0.00-0.03); Imm Gran Pct Auto 0.3 % (0.0-0.4); Lymphocytes Absolute Auto 2.7 X10*3/uL (1.2-4.9); Mean Corpuscular HGB Conc 32.4 g/dl (31.0-35.0); Mean Corpuscular Hemoglobin 30.7 pg (27.0-33.0); Mean Corpuscular Volume 94.6 fL (80.0-98.0); Mean Platelet Volume 10.3 fL (9.4-12.3); Monocytes Absolute Auto 0.4 X10*3/uL (0.1-1.2); Monocytes Percent Auto 5.4 % (2-11); Neutrophils Percent Auto 55.2 % (45-73); Platelet Count 281 X10*3/uL (160-400); Red Blood Count 4.27 X10*6/uL (4.20-5.50); White Blood Count 7.2 X10*3/uL (4.8-10.8)
[2024-06-23 14:32] LABS: Folate 13.6 ng/mL (> or = 4.0); Vitamin B12 194 pg/mL (200-900)
[2024-06-23 14:46] LABS: Free T4 (Free Thyroxine) 0.93 ng/dL (0.71-1.85); Thyroid Stimulating Hormone 2.13 uIU/mL (0.32-4.0); Vitamin D 25-OH Total 57.6 ng/mL (>30)
[2024-06-24 12:24] LABS: Thyroid Peroxidase Antibodies 1 IU/mL (<9)
== END 2024-06-23 10:41 | disposition home or self-care (01) ==
LOC: HO.HMGCLDS 10:40
PROVIDERS: PCP Internal Medicine; Visit Provider Internal Medicine
DX: E03.9 Hypothyroidism, unspecified (principal); R53.83 Other fatigue; Z78.0 Asymptomatic menopausal state
CPT/HCPCS: 36415; 82306; 82607; 82746; 84439; 84443; 85025; 86376

== ENCOUNTER → 2024-06-27 09:43 | Outpatient (BNVA) | payer MEDICARE, SELFPAY | PROVIDERS: PCP Internal Medicine; Visit Provider Internal Medicine | DX: E53.8 Deficiency of other specified B group vitamins (principal) | CPT/HCPCS: 96372 ==

== ENCOUNTER 2024-06-27 09:45 | Outpatient (AMB) | payer MEDICARE, SELFPAY ==
--- OUTSIDE RECORDS SUMMARY | 2024-06-27 09:45 | XMS_ITS | Continuity of Care Document ---
Author Organization [facility] Address [address] [place] [id number]- Care Team Providers Care Surgical Tech Name Role Phone Philip MEDINA, Kalina Lei Primary Care Physician Encounter [facility] [place] Date(s): 07/26/21 - 08/25/21 [facility] [address] [place] [id number]- [place] Allergies, Adverse Reactions, Alerts Substance Reaction Severity Status codeine Active Medications Aspir-Low 81 mg oral enteric coated tablet 1 tablet = 81 mg, By Mouth, Daily, # 30 tablet, 0 Refills, Maintenance, EC Tablet Start Date: 08/22/13 Status: Ordered Prilosec 10 mg oral enteric coated capsule 2 capsule = 20 mg, By Mouth, Daily, # 30 capsule, 0 Refills, Maintenance, EC Capsule Start Date: 08/19/13 Status: Ordered promethazine 12.5 mg oral tablet 1 tablet = 12.5 mg, By Mouth, Every 6 hours, PRN for nausea/vomiting, # 21 tablet, 0 Refills, Maintenance, 08/13/21 13:26:00 EST, Tablet, [facility]/pharmacy #[id number], Partial fill upon patient request if the prescription is for a schedule II opioid drug., 153,... Start Date: 08/13/21 Stop Date: 08/20/21 Status: Ordered rosuvastatin 20 mg oral tablet 1 tablet = 20 mg, By Mouth, Daily, discontinue atorvastatin, # 30 tablet, 5 Refills, Maintenance, 07/26/21 10:58:00 EST, [id number], 153, cm, 07/09/21 12:18:00 EST, Height Start Date: 07/26/21 Stop Date: 01/22/22 Status: Ordered Synthroid Tablet = 50 mcg, By Mouth, Daily, 0 Refills, Maintenance, Tablet Start Date: 08/19/13 Status: Ordered Vitamin B12 0 Refills, Maintenance, 04/09/16 10:43:55 Start Date: 04/09/16 Status: Ordered Vitamin B6 Daily, 0 Refills, Maintenance, 04/09/16 10:43:44 Start Date: 04/09/16 Status: Ordered Vitamin D3 1000 intl units oral capsule 1 capsule = 1,000 International_Units, By Mouth, Daily, 0 Refills, Maintenance, 04/09/16 10:44:23 Start Date: 04/09/16 Status: Ordered Vitamin E By Mouth, Daily, 0 Refills, Maintenance, 04/09/16 10:44:08 Start Date: 04/09/16 Status: Ordered Xanax 0.5 mg oral tablet 1 tablet = 0.5 mg, By Mouth, Daily at bedtime, PRN for anxiety, 0 Refills, Maintenance, Tablet Start Date: 08/19/13 Status: Ordered Social History Social History Type Response Smoking Status Current some day smo ker; Tobacco user in household: No entered on: 04/09/16 Sex
--- OUTSIDE RECORDS SUMMARY | 2024-06-27 09:45 | XMS_ITS | Continuity of Care Document ---
Author Organization [facility] Address [address] [address]- Care Team Providers Care Director Business Management Name Role Phone Philip MEDINA, Kalina Lei Primary Care Physician Encounter [facility] [id number] Date(s): 08/14/21 - 09/27/21 [facility] [address] [address]- Attending Physician: Shlomo Oh MD Admitting Physician: Shlomo Oh MD Referring Physician: Shlomo Oh MD Allergies, Adverse Reactions, Alerts Substance Reaction Severity [...] 0 Refills, Maintenance, 08/13/21 13:26:00 EST, Tablet, [id number], Partial fill upon patient request if [...]
--- OUTSIDE RECORDS SUMMARY | 2024-06-27 09:45 | XMS_ITS | Continuity of Care Document ---
Author Organization [facility] Address [address] [address]- Care Team Providers Care Rack Room Worker Name Role Phone Philip MEDINA, Kalina Lei Primary Care Physician [facility] [id number] Date(s): 08/08/21 - 09/19/21 [facility] [address] [address]- Attending Physician: Elliot Christine MD Admitting Physician: Elliot Christine MD Referring Physician: Elliot Christine MD Allergies, Adverse Reactions, Alerts Substance Reaction [...]
--- OUTSIDE RECORDS SUMMARY | 2024-06-27 09:45 | XMS_ITS | Continuity of Care Document ---
Author Organization [facility] Address [address] [place] [address]- Care Team Providers Care Electronic Warfare Officer Name Role Phone Philip MEDINA, Kalina Lei Primary Care Physician [place] [facility] [place] 07/11/[address] [address]- Attending Physician: Elliot Christine MD Admitting Physician: Elliot Christine MD Referring Physician: Elliot Christine MD Allergies, Adverse Reactions, Alerts Substance Reaction Severity Status codeine Active Medications Aspir-Low 81 mg oral enteric coated tablet 1 tablet = 81 mg, By Mouth, Daily, # 30 tablet, 0 Refills, Maintenance, EC Tablet Start Date: 08/22/13 Status: Ordered ezetimibe 10 mg oral tablet 1 tablet, By Mouth, Daily, # 90 tablet, 1 Refills, Maintenance, 03/31/23 9:39:00 EDT, [facility] [address], 153, cm, 07/08/22 14:05:00 EST, Height Start Date: 03/31/23 Status: Ordered gabapentin 100 mg oral capsule 100 mg, 1, capsule, By Mouth, Daily at bedtime, # 30 capsule, Refills 0, Maintenance, 07/08/22 14:05:00 EST, Partial fill upon patient request if the prescription is for a schedule II opioid drug. Start Date: 07/08/22 Status: Ordered Lexapro 10 mg oral tablet 1 tablet = 10 mg, By Mouth, Daily, 0 Refills, Maintenance, 07/08/22 14:05:00 EST, Partial fill uponpatient request if the prescription is for a schedule II opioid drug. Start Date: 07/08/22 Status: Ordered Prilosec 10 mg oral enteric [...] 08/13/21 Stop Date: 08/20/21 Status: Ordered rosuvastatin 40 mg oral tablet 1 tablet = 40 mg, By Mouth, Daily, # 90 tablet, 3 Refills, Maintenance, 07/01/23 16:16:00 EST, Tablet, [id number], Partial fill upon patient request if the prescription is for a schedule II opioid drug., 153, cm, 07/08/22 14:05:00 EST, Height Start Date: 07/01/23 Stop Date: 06/25/24 Status: Ordered Synthroid Tablet = 50 mcg, By Mouth, Daily, 0 Refills, Maintenance, Tablet Start Date: 08/19/13 Status: Ordered Vitamin E By Mouth, Daily, 0 Refills, Maintenance, 04/09/16 10:44:08 Start Date: 04/09/16 Status: Ordered Xanax 0.5 mg oral tablet 1 tablet = 0.5 mg, By Mouth, Daily at bedtime, PRN for anxiety, 0 Refills, Maintenance, Tablet Start Date: 08/19/13 Status: Ordered Zetia 10 mg oral tablet 1 tablet = 10 mg, By Mouth, Daily, # 90 tablet, 0 Refills, Maintenance, 10/21/22 11:20:00 EST, Tablet, [id number], Partial fill upon patient request if the prescription is for a schedule II opioid drug., 153, cm, 07/08/22 14:05:00 EST, Height Start Date: 10/21/22 Status: Ordered Problem List Condition Confirmation Course Effective Dates Status Health St atus Informant Dyslipidemia Confirmed Active Abnormal ECG Confirmed Active Family history of premature CAD Confirmed Active Tobacco use Confirmed Active Social History Social History Type Response Smoking Status Current some day smo ker; Tobacco user in household: No entered on: 04/09/16 Sex Patient Care team information Care Team Personnel Name: Philip MEDINA , Kalina Lei Position: Reference Physician Member Role: PCP Address: Address: [address] [place] [address]- Care Team Related Persons Name: PETEY VICENTE Address: [address] [place] [address]
--- OUTSIDE RECORDS SUMMARY | 2024-06-27 09:45 | XMS_ITS | Continuity of Care Document ---
Author Organization [facility] Address [address] [place] [address]- Care Team Providers Care Secondary School Teacher Name Role Phone Philip MEDINA, Kalina Lei Primary Care Physician Encounter [facility] [place] Date(s): 07/29/21 - 08/28/21 [facility] [address] [place] [id number]- [place] Allergies, Adverse Reactions, Alerts Substance Reaction [...] Refills, Maintenance, 08/13/21 13:26:00 EST, Tablet, [facility]/pharmacy #[id number], Partial fill upon patient request if [...]
--- OUTSIDE RECORDS SUMMARY | 2024-06-27 09:45 | XMS_ITS | Continuity of Care Document ---
Author Organization [facility] Address [address] [place] [address]- Care Team Providers Care Dog Or Horse Racing Official Name Role Phone Philip MEDINA, Kalina Lei Primary Care Physician [place] [facility] Date[place]s): 07/25/21 - 08/24/21 [facility] [address] [place] [address]- [place] Allergies, Adverse Reactions, Alerts Substance Reaction [...] 0 Refills, Maintenance, 08/13/21 13:26:00 EST, Tablet, [facility]/pharmacy #[id number], Partial fill upon patient request if [...]
--- OUTSIDE RECORDS SUMMARY | 2024-06-27 09:45 | XMS_ITS | Continuity of Care Document ---
Author Organization [facility] Address [address] [place] [address]- Care Team Providers Care Melt Room Operator Name Role Phone Philip MEDINA, Kalina Lei Primary Care Physician Encounter [facility] [place] Date(s): 10/20/22 - 11/19/22 [facility] [address] [place] [address]- [place] Allergies, Adverse Reactions, Alerts Substance Reaction Severity Status codeine Active Medications Aspir-Low 81 mg oral enteric coated tablet 1 tablet = 81 mg, By Mouth, Daily, # 30 tablet, 0 Refills, Maintenance, EC Tablet Start Date: 08/22/13 Status: Ordered gabapentin 100 mg oral capsule [...] Refills, Maintenance, 08/13/21 13:26:00 EST, Tablet, [id number], Partial fill upon patient request if the prescription is for a schedule II opioid drug., 153,... Start Date: 08/13/21 Stop Date: 08/20/21 Status: Ordered rosuvastatin 40 mg oral tablet 1 tablet = 40 mg, By Mouth, Daily, # 30 tablet, 5 Refills, Maintenance, 08/29/22 14:49:00 EST, Tablet, [facility]/pharmacy #[id number], Partial fill upon patient request if the prescription is for a schedule II opioid drug., 153, cm, 07/08/22 14:05:00 EST, Height Start Date: 08/29/22 Status: Ordered Synthroid Tablet = 50 mcg, [...] Physician Member Role: PCP Address: Address: [address] [place] [address]- Care Team Related Persons Name: PETEY VICENTE Address: [address] [place] [address]
--- OUTSIDE RECORDS SUMMARY | 2024-06-27 09:45 | XMS_ITS | Continuity of Care Document ---
Author Organization [facility] Address [address] [address]- Care Team Providers Care Camp Cook Name Role Phone Philip MEDINA, Kalina Lei Primary Care Physician Encounter [facility] [place] [facility] [id number] Date(s): 08/28/21 - 09/27/21 [facility] [address] [address]- Attending Physician: Talita Martinez Admitting Physician: AdmtrTalita Referring Physician: Admtr, Ar8 Allergies, Adverse Reactions, Alerts Substance Reaction Severity [...] 0 Refills, Maintenance, 08/13/21 13:26:00 EST, Tablet, [facility]/pharmacy #[id number], Partial fill upon patient request [...]
--- OUTSIDE RECORDS SUMMARY | 2024-06-27 09:45 | XMS_ITS | Continuity of Care Document ---
Author Organization [facility] Address [address] [place] [phone]- Care Team Providers Care Upholstery Trimmer Name Role Phone Philip MEDINA, Kalina Lei Primary Care Physician Encounter [facility] [place] Date(s): 08/09/21 - 09/08/21 [facility] [address] [place] [phone]- [place] Allergies, Adverse Reactions, Alerts Substance Reaction [...] 0 Refills, Maintenance, 08/13/21 13:26:00 EST, Tablet, [facility]/pharmacy #[id number], Partial fill upon patient request if [...]
--- OUTSIDE RECORDS SUMMARY | 2024-06-27 09:45 | XMS_ITS | Continuity of Care Document ---
Author Organization [facility] Address [address] [place] [address]- Care Team Providers Care Channel Machine Operator Name Role Phone Philip MEDINA, Kalina Lei Primary Care Physician Encounter [facility] [place] Date(s): 08/08/21 - 09/07/21 [facility] [address] [place] [address]- [place] Allergies, Adverse Reactions, Alerts Substance Reaction [...] 0 Refills, Maintenance, 08/13/21 13:26:00 EST, Tablet, [facility]/pharmacy #[id number], Partial fill upon patient request if [...]
--- OUTSIDE RECORDS SUMMARY | 2024-06-27 09:45 | XMS_ITS | Continuity of Care Document ---
Author Organization [facility] Address [address] [place] [address]- Care Team Providers Care Desk Assistant Name Role Phone Philip MEDINA, Kalina Lei Primary Care Physician [place] [facility] [place] Date(s): 09/03/22 - 10/03/22 [facility] [address] [place] [address]- [place] Allergies, Adverse Reactions, Alerts Substance Reaction [...] Refills, Maintenance, 08/13/21 13:26:00 EST, Tablet, [id number], Partial fill upon patient request if the prescription is for a schedule II opioid drug., 153,... Start Date: 08/13/21 Stop Date: 08/20/21 Status: Ordered rosuvastatin 40 mg oral tablet 1 tablet = 40 mg, By Mouth, Daily, # 30 tablet, 5 Refills, Maintenance, 08/29/22 14:49:00 EST, Tablet, [facility]/pharmacy #[id number], Partial fill upon patient request if the [...] Maintenance, Tablet Start Date: 08/19/13 Status: Ordered Problem List Condition Confirmation Course [...] Physician Member Role: PCP Address: Address: [address] [place] [address]- Care Team Related Persons Name: PETEY VICENTE Address: [address] [place] [address]
--- OUTSIDE RECORDS SUMMARY | 2024-06-27 09:45 | XMS_ITS | Continuity of Care Document ---
Author Organization [facility] Address [address] [place] [address]- Care Team Providers Care Supermarket Manager Name Role Phone Philip MEDINA, Kalina Lei Primary Care Physician [place] [facility] [place]21 - 09/01/21 [facility] [address] [place] [address]- [place] Allergies, Adverse Reactions, Alerts Substance Reaction [...] 0 Refills, Maintenance, 08/13/21 13:26:00 EST, Tablet, [facility]/pharmacy #[id number], Partial fill upon patient request if [...]
--- OUTSIDE RECORDS SUMMARY | 2024-06-27 09:45 | XMS_ITS | Continuity of Care Document ---
Author Organization [facility] Address [address] [address]- Care Team Providers Care Shrub Planter Name Role Phone Philip MEDINA, Kalina Lei Primary Care Physician Encounter [facility] Date(s): 11/15/21 - 12/15/21 [facility] [address] [place] [address]- [place] Allergies, Adverse Reactions, Alerts Substance Reaction [...]
--- OUTSIDE RECORDS SUMMARY | 2024-06-27 09:45 | XMS_ITS | Continuity of Care Document ---
Author Organization [facility] Address [address] [place] [address]- Care Team Providers Care Formula Maker Name Role Phone Philip MEDINA, Kalina Lei Primary Care Physician Encounter [facility] [place] Date(s): 11/15/21 - 12/15/21 [facility] [address] [place] [address]- [place] Allergies, Adverse Reactions, Alerts Substance Reaction [...]
--- OUTSIDE RECORDS SUMMARY | 2024-06-27 09:45 | XMS_ITS | Continuity of Care Document ---
Author Organization [facility] Address [address] [place] [address]- Care Team Providers Care Assistant Prosecuting Attorney Name Role Phone Philip MEDINA, Kalina Lei Primary Care Physician Encounter [facility] [place] Date(s): 07/25/21 - 08/24/21 [facility] [address] [place] [address]- [place] Allergies, Adverse Reactions, Alerts Substance Reaction [...] 0 Refills, Maintenance, 08/13/21 13:26:00 EST, Tablet, [facility]/pharmacy #[id number], Partial fill upon patient request [...]
--- OUTSIDE RECORDS SUMMARY | 2024-06-27 09:45 | XMS_ITS | Continuity of Care Document ---
Author Organization [facility] Address [address] [place] [address]- Care Team Providers Care Cotton Machine Operator Name Role Phone Philip MEDINA, Kalina Lei Primary Care Physician Encounter [facility] [place] Date(s): 07/01/23 - 07/31/23 [facility] [address] [place] [address]- [place] Allergies, Adverse Reactions, Alerts Substance Reaction Severity Status codeine Active Medications Aspir-Low 81 mg oral enteric coated tablet 1 tablet = 81 mg, By Mouth, Daily, # 30 tablet, 0 Refills, Maintenance, EC Tablet Start Date: 08/22/13 Status: Ordered ezetimibe 10 mg oral tablet 1 tablet, By Mouth, Daily, # 90 tablet, 1 Refills, Maintenance, 03/31/23 9:39:00 EDT, [id number], 153, cm, 07/08/22 14:05:00 EST, Height Start Date: 03/31/23 Status: Ordered famotidine 20 mg oral tablet TAKE 1 TABLET BY MOUTH 2 TIMES A DAY Start Date: 07/14/23 Status: Ordered Lexapro 10 mg oral tablet 1.5 tablet = 15 mg, By Mouth, Daily, 0 Refills, Maintenance, 07/08/22 14:05:00 EST, Partial fill upon patient request if the prescription is for a schedule II opioid drug. Start Date: 07/08/22 Status: Ordered meclizine 25 mg oral tablet TAKE 1 TABLET BY MOUTH 3 TIMES A DAY NEEDED FOR DIZZINESS Start Date: 07/14/23 Status: Ordered Prilosec 10 mg oral enteric [...] Maintenance, Tablet Start Date: 08/19/13 Status: Ordered Xanax 0.5 mg oral tablet [...] Physician Member Role: PCP Address: Address: [address] [place] [address]- Care Team Related Persons Name: PETEY VICENTE Address: [address] [place] [address]
--- OUTSIDE RECORDS SUMMARY | 2024-06-27 09:45 | XMS_ITS | Continuity of Care Document ---
Author Organization [facility] Address [address] [place] [address]- Care Team Providers Care Terrapin Fisher Name Role Phone Philip MEDIAN, Kalina Lei Primary Care Physician Encounter [facility] [id number] Date(s): 06/28/21 - 08/07/[address] [address] Attending Physician: Elliot Christine MD Admitting Physician: [...] EC Capsule Start Date: 08/19/13 Status: Ordered rosuvastatin 20 mg oral tablet [...]
--- OUTSIDE RECORDS SUMMARY | 2024-06-27 09:45 | XMS_ITS | Continuity of Care Document ---
Author Organization [facility] Address Unknown Care Team Providers Care Recyclable Materials Sorter Name Role Phone Philip MEDINA, Kalina Lei Primary Care Physician En[place] [facility] [place] [facility] R [id number] Date(s): 08/13/21 - 09/12/21 [facility] Attending Physician: Talita Martinez Admitting Physician: Talita Martinez Referring Physician: Talita Martinez Allergies, Adverse Reactions, Alerts Substance Reaction Severity [...]
--- OUTSIDE RECORDS SUMMARY | 2024-06-27 09:45 | XMS_ITS | Continuity of Care Document ---
Author Organization [facility] Address [address] [place] [address]- Care Team Providers Care Power Electronics Research Engineer Name Role Phone Philip MEDINA, Kalina Lei Primary Care Physician Encounter [facility] Date(s): 08/08/21 - 09/07/21 [facility] [address] [place] [address]- [place] Allergies, Adverse Reactions, Alerts Substance Reaction [...] 0 Refills, Maintenance, 08/13/21 13:26:00 EST, Tablet, [facility]/pharmacy #[id number], Partial fill upon patient [...]
--- OUTSIDE RECORDS SUMMARY | 2024-06-27 09:45 | XMS_ITS | Continuity of Care Document ---
Author Organization [facility] Address [address] [place] [address]- Care Team Providers Care Charter Representative Name Role Phone Philip MEDINA, Kalina Lei Primary Care Physician [place] [facility] [place]15[place]21 - 12/15/21 [facility] [address] [place] [phone]- [place] Allergies, Adverse Reactions, Alerts Substance Reaction [...]
--- OUTSIDE RECORDS SUMMARY | 2024-06-27 09:46 | XMS_ITS | Continuity of Care Document ---
Author Organization [facility] Address [address] [place] [address]- Care Team Providers Care Biofuels Production Associate Name Role Phone Philip MEDINA, Kalina Lei Primary Care Physician Encounter [facility] [place] Date(s): 10/14/22 - 11/13/22 [facility] [address] [place] [address]- [place] Allergies, Adverse Reactions, Alerts Substance Reaction [...] Refills, Maintenance, 08/13/21 13:26:00 EST, Tablet, [id number], Partial fill upon patient request if the prescription is for a schedule II opioid drug., 153,... Start Date: 08/13/21 Stop Date: 08/20/21 Status: Ordered rosuvastatin 40 mg oral tablet 1 tablet = 40 mg, By Mouth, Daily, # 30 tablet, 5 Refills, Maintenance, 08/29/22 14:49:00 EST, Tablet, [facility]/pharmacy #[id number], Partial fill upon patient request [...] Physician Member Role: PCP Address: Address: [address] [place] [address]- Care Team Related Persons Name: PETEY VICENTE Address: [address] [place] [address]
--- NOTE | 2024-06-27 09:58 | AM.OFFVISNUR ---
Intake Visit Reasons: b-12 shot Intake Note: Pt arrived for Weekly B-12 injection, #1 of 4 weekly Allergies Codeine Sulfate Adverse Reaction (Unknown, Uncoded 09/04/23 09:24) nausea Office Meds cyanocobalamin (vitamin B-12) 1,000 mcg/mL injection solution Performing Provider: Kalina Palacios MD Performing Location: [facility] [place] Primary [facility] Administered by: Amara Saleh RN on 06/27/24 09:58 Dose Route Admin Location Dispensed Lot Number Expiration Date [facility] Cornice Upholsterer 1,000 mcg IM right deltoid 1.0 mL [id number] 12/22/25 66159-267-74 [email or web address] Comments: Pt supplied Assessment & Plan Assessment & Plan Orders: Orders AMB Vitamin B12 Injection Patient Supplied Today E53.8 - Deficiency of other specified B group vitamins Medications: New cyanocobalamin (vitamin B-12) 1,000 mcg IM ONCE 1 mL 0RF E53.8 - Deficiency of other specified B group vitamins
== END 2024-06-27 10:20 | disposition home or self-care (01) ==
PROVIDERS: PCP Internal Medicine; Visit Provider Internal Medicine
DX: E53.8 Deficiency of other specified B group vitamins (principal)
CPT/HCPCS: J3420

== ENCOUNTER 2024-07-04 09:37 | Outpatient (AMB) | payer MEDICARE, SELFPAY ==
--- NOTE | 2024-07-04 10:25 | AM.OFFVISNUR ---
Intake Visit Reasons: B-12 shot Intake Note: Pt arrived for #2 of 4 weekly B-12 injections Allergies Codeine Sulfate Adverse Reaction (Unknown, Uncoded 09/04/23 09:24) nausea Office Meds cyanocobalamin (vitamin B-12) 1,000 mcg/mL injection solution Performing Provider: Kalina Palacios MD Performing Location: [facility] [place] Adult Primary Care-[facility] Administered by: Amara Saleh RN on 07/04/24 10:25 Dose Route Admin Location Dispensed Lot Number Expiration Date [facility] Director Operations 1,000 mcg IM right deltoid 1.0 mL [id number] 12/22/25 75252-380-73 [employer] Comments: pt supplied Assessment & Plan Assessment & Plan Orders: Orders AMB Vitamin B12 Injection Patient Supplied Today E53.8 - Deficiency of other specified B group vitamins Medications: New cyanocobalamin (vitamin B-12) 1,000 mcg IM ONCE 1 mL 0RF E53.8 - Deficiency of other specified B group vitamins
== END 2024-07-04 10:38 | disposition home or self-care (01) ==
PROVIDERS: PCP Internal Medicine; Visit Provider Internal Medicine
DX: E53.8 Deficiency of other specified B group vitamins (principal)
CPT/HCPCS: J3420

== ENCOUNTER 2024-07-04 09:37 | Outpatient (REF) | payer MEDICARE, SELFPAY ==
[2024-07-04 12:08] LABS: Immature Retic Fraction 18.4 % (3.0-15.9); Retic HGB Equivalent 35.5 pg (30.0-35.0); Reticulocyte Percent 2.2 % (0.5-1.8); Reticulocytes Absolute 0.093 X10*6/uL (0.026-0.095)
[2024-07-04 12:45] LABS: Iron 72 mcg/dL (30-160); Percent Iron Saturation 26 % (15-50); Total Iron Binding Capacity 281 mcg/dL (228-428); Unsaturated Iron Binding 209 ug/dL
[2024-07-04 13:04] LABS: Ferritin 109 ng/mL (10-250)
[2024-07-07 18:49] LABS: Intrinsic Factor Antibodies Positive (Negative); Methylmalonic Acid 94 nmol/L (69-390)
[2024-07-08 18:48] LABS: Parietal Cell Antibody <=20.0 Unit (<=20.0)
== END 2024-07-04 09:38 | disposition home or self-care (01) ==
LOC: HO.HMGCLDS 09:37
PROVIDERS: PCP Internal Medicine; Visit Provider Internal Medicine
DX: E53.8 Deficiency of other specified B group vitamins (principal); R53.83 Other fatigue
CPT/HCPCS: 36415; 82728; 83090; 83516; 83540; 83921; 85045; 86340; 96372

== ENCOUNTER 2024-07-11 11:52 | Outpatient (AMB) | payer MEDICARE, SELFPAY ==
--- NOTE | 2024-07-11 12:07 | AM.OFFVISNUR ---
Intake Visit Reasons: B-12 shot Allergies Codeine Sulfate Adverse Reaction (Unknown, Uncoded 09/04/23 09:24) nausea Nursing Note Pt amb (I) gait steady to room. Med x 1 with medication Vitamin B-12 to right deltoid. Office Meds cyanocobalamin (vitamin B-12) 1,000 mcg/mL injection solution Performing Provider: Kalina Palacios MD Performing [place] [facility] [facility] Administered by: Elana Colon on 07/11/24 12:07 Dose Route Admin Location Dispensed Lot Number Expiration Date [facility] Criminal Justice Faculty 1,000 mcg IM right deltoid 1 mL [id number] 01/10/26 42224-785-75 [employer] [place] 1,000 mcg IM 1 mL Assessment & Plan Assessment & Plan Orders: Orders AMB Vitamin B12 Injection Patient Supplied Today E53.8 - Deficiency of other specified B group vitamins Medications: New cyanocobalamin (vitamin B-12) 1,000 mcg IM ONCE 1 mL 0RF E53.8 - Deficiency of other specified B group vitamins
== END 2024-07-11 13:24 | disposition home or self-care (01) ==
LOC: HO.HMCC 11:52
PROVIDERS: PCP Internal Medicine; Visit Provider Internal Medicine
DX: E53.8 Deficiency of other specified B group vitamins (principal)
CPT/HCPCS: J3420

== ENCOUNTER → 2024-07-11 11:52 | Outpatient (BNVA) | payer MEDICARE, SELFPAY | PROVIDERS: PCP Internal Medicine; Visit Provider Internal Medicine | DX: E53.8 Deficiency of other specified B group vitamins (principal) | CPT/HCPCS: 96372 ==

== ENCOUNTER 2024-07-18 09:54 | Outpatient (AMB) | payer MEDICARE, SELFPAY ==
--- NOTE | 2024-07-18 10:15 | AM.OFFVISNUR ---
Intake Visit Reasons: B-12 shot Allergies Codeine Sulfate Adverse Reaction (Unknown, Uncoded 09/04/23 09:24) nausea Nursing Note Pt amb (i) gait steady. Medication x 1 with Vitamin B12 to right deltoid. Assessment & Plan Assessment & Plan Orders: Orders AMB Vitamin B12 Injection Patient Supplied Today E53.8 - Deficiency of other specified B group vitamins Medications: New cyanocobalamin (vitamin B-12) 1,000 mcg IM ONCE 1 mL 0RF E53.8 - Deficiency of other specified B group vitamins
== END 2024-07-18 10:00 | disposition home or self-care (01) ==
PROVIDERS: PCP Internal Medicine; Visit Provider Internal Medicine
DX: E53.8 Deficiency of other specified B group vitamins (principal)

== ENCOUNTER → 2024-07-18 09:54 | Outpatient (BNVA) | payer MEDICARE, SELFPAY | PROVIDERS: PCP Internal Medicine; Visit Provider Internal Medicine | DX: E53.8 Deficiency of other specified B group vitamins (principal) | CPT/HCPCS: 96372; J3420 ==

== ENCOUNTER 2024-07-20 13:38 | Outpatient (REF) | payer MEDICARE, SELFPAY ==
--- NOTE | ~2024-07-20 | MM_ITS ---
EXAMINATION: BONE DENSITOMETRY CLINICAL INDICATION: Screening for osteoporosis. COMPARISON: This is the patient's baseline examination. TECHNIQUE: Using a [employer] DXA System (software version: 13.1) manufactured by [employer], dual-energy x-ray absorptiometry was performed of the lumbar spine and left hip. The images are of good technical quality. Summary results are attached. FINDINGS: LEFT FEMUR, NECK: BMD 0.724 g/cm2, Z-score -0.6, T-score -2.3, osteopenia. LEFT FEMUR, TOTAL: BMD 0.740 g/cm2, Z-score -0.7, T-score -2.1, osteopenia. AP SPINE L1-L4: BMD 0.822 g/cm2, Z-score -1.2, T-score -3.0, osteoporosis. IDENTIFIED RISK FACTORS: Menopause, low calcium intake. HISTORY OF FRACTURE: None listed. MEDICATIONS: None listed. MM/XR DEXA axial skeleton IMPRESSION: 1. DIAGNOSIS: Osteoporosis based on the lowest T-score value of -3.0 in the lumbar spine applying World Health Organization criteria. 2. 10-YEAR FRACTURE RISK PREDICTION, FRAX: According to the guidelines, FRAX calculation should only be performed on patients in the osteopenia bone density category. Therefore, FRAX was not performed on this patient. 3. Treatment Recommendations: NOF guidelines recommend consideration for treatment in postmenopausal women and men age 50 and older presenting with the following: -A hip or vertebral (clinical or morphometric) fracture. -T-score less than or equal to -2.5 at the femoral neck or spine after appropriate evaluation to exclude secondary causes. -Low bone mass at the hip or spine and a 10-year fracture probability by FRAX of greater than or equal to 3% for hip fracture or greater than or equal to 20% for major osteoporotic fracture based on the [place] adapted WHO algorithm. 4. Other Recommendations: All treatment decisions require clinical judgment and consideration of individual patient factors, including patient preferences, comorbidities, previous drug use, risk factors not captured in the FRAX model (e.g. frailty, falls, vitamin D deficiency, increased bone turnover, interval significant decline in bone density) and possible under or overestimation of fracture risk by FRAX. Additional medical evaluation for secondary cause of low bone mineral density may be appropriate. FUTURE SCAN RECOMMENDATION: People with diagnosed cases of osteoporosis or at high risk for fracture should have regular bone mineral density tests. For patients eligible for Medicare, routine testing is allowed once every 2 years. The testing frequency can be increased to one year for patients who have rapidly progressing disease, those who are receiving or discontinuing medical therapy to restore bone mass, or have additional risk factors. Electronically signed by: Ronan Le MD 07/25/2024 08:14 PM SUSAN ENG
== END 2024-07-20 13:39 | disposition home or self-care (01) ==
LOC: HO.MAMMO 13:38
PROVIDERS: PCP Internal Medicine; Visit Provider Internal Medicine
DX: Z13.820 Encounter for screening for osteoporosis (principal); Z78.0 Asymptomatic menopausal state; Z87.81 Personal history of (healed) traumatic fracture
CPT/HCPCS: 77080

== ENCOUNTER 2024-08-04 11:23 | Outpatient (AMB) | payer MEDICARE, SELFPAY ==
--- NOTE | 2024-08-04 12:12 | AM.OFFVISNUR ---
Intake Visit Reasons: B12 injection Allergies Codeine Sulfate Adverse Reaction (Unknown, Uncoded 09/04/23 09:24) nausea Nursing Note Pt came in for B12 injection to left shoulder.
== END 2024-08-04 11:43 | disposition home or self-care (01) ==
PROVIDERS: PCP Internal Medicine; Visit Provider Internal Medicine
DX: E53.8 Deficiency of other specified B group vitamins (principal)

== ENCOUNTER → 2024-08-04 11:23 | Outpatient (BNVA) | payer MEDICARE, SELFPAY | PROVIDERS: PCP Internal Medicine; Visit Provider Internal Medicine | DX: E53.8 Deficiency of other specified B group vitamins (principal) | CPT/HCPCS: 96372; J3420 ==

== ENCOUNTER 2024-08-25 09:35 | Outpatient (REF) | payer MEDICARE, SELFPAY ==
[2024-08-25 13:29] LABS: Alanine Aminotransferase 31 U/L (0-31); Anion Gap 13 (12-20); Aspartate Amino Transferase 27 U/L (5-31); Blood Urea Nitrogen 11 mg/dL (9-16); Calcium 9.6 mg/dL (8.4-10.2); Carbon Dioxide 27 mmol/L (22-29); Chloride 106 mmol/L (96-108); Cholesterol 185 mg/dL (<200); Estimated Glomerular Filt Rate > 60; Glucose Fasting 115 mg/dL (60-99); HDL Cholesterol 69 mg/dL (>40); LDL Cholesterol Calculated 84 mg/dL (<100); Potassium 3.9 mmol/L (3.3-5.1); Sodium 142 mmol/L (135-145); Triglycerides 164 mg/dL (<150)
[2024-08-25 13:46] LABS: Free T4 (Free Thyroxine) 1.16 ng/dL (0.71-1.85); Thyroid Stimulating Hormone 1.43 uIU/mL (0.32-4.0); Vitamin D 25-OH Total 68.1 ng/mL (>30)
[2024-08-25 13:57] LABS: Folate 13.1 ng/mL (> or = 4.0); Vitamin B12 414 pg/mL (200-900)
== END 2024-08-25 09:36 | disposition home or self-care (01) ==
LOC: HO.HMGCLDS 09:35
PROVIDERS: PCP Internal Medicine; Visit Provider Internal Medicine
DX: E53.8 Deficiency of other specified B group vitamins (principal); R53.83 Other fatigue; E03.9 Hypothyroidism, unspecified; E78.5 Hyperlipidemia, unspecified; F41.1 Generalized anxiety disorder
CPT/HCPCS: 36415; 80048; 80061; 82306; 82607; 82746; 84439; 84443; 84450; 84460

== ENCOUNTER 2024-08-30 13:35 | Outpatient (AMB) | payer MEDICARE, SELFPAY ==
--- NOTE | 2024-08-30 13:46 | MHC.OFFVIS ---
Vital Signs 08/30/24 13:50 Height 5 ft 0.85 in Weight 142 lb 13.753 oz BMI 27.1 BP 110/70 Blood Pressure Location Rt brachial Position Sitting Pulse 71 Pulse Source Pulse Oximeter Intake Visit Reasons: Age-related osteoporosis without current patholog Intake Note: New patient internally referred by PCP for Age-related Osteoprosis. Beef Cattle Grazier Required: No Accompanied by: Self / Same As Patient Allergies Codeine Sulfate Adverse Reaction (Unknown, Uncoded 08/30/24 13:50) nausea HPI Comments Details: 69 YO Female is seen in consultation at the request of PCP for Osteoporosis. First diagnosed in this yr . Not Received treatment in the past No history of pathologic fracture or ONJ. Has several servings of dietary calcium per day in the form of broccoli, cottage cheese . Not Takes Calcium supplement . Takes ? IU of Vitamin D daily. Takes PPI, no anticoagulant, antiepileptic or glucocorticoid medication. 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 UTD on dental cleanings and sees dentist every 6 months. No planned upcoming dental work or extractions. 3-4 cigarettes/day DXA dated 07/20/24:FINDINGS: LEFT FEMUR, NECK: BMD 0.724 g/cm2, Z-score -0.6, T-score -2.3, osteopenia. LEFT FEMUR, TOTAL: BMD 0.740 g/cm2, Z-score -0.7, T-score -2.1, osteopenia. AP SPINE L1-L4: BMD 0.822 g/cm2, Z-score -1.2, T-score -3.0, osteoporosis. IDENTIFIED RISK FACTORS: Menopause, low calcium intake. HISTORY OF FRACTURE: None listed. MEDICATIONS: None listed. MM/XR DEXA axial skeleton IMPRESSION: 1. DIAGNOSIS: Osteoporosis based on the lowest T-score value of -3.0 in the lumbar spine applying World Health Organization criteria. Labs: [facility] Medical History (Updated 07/29/24 @ 17:02 by Kalina Palacios MD) Osteoporosis of lumbar spine Vitamin B12 deficiency History of fracture of foot History of recurrent TIAs Chronic GERD Generalized anxiety disorder Dyslipidemia Surgical History Hx of colonoscopy Family History Father Coronary artery disease Brother Coronary artery disease Paternal Grandmother Breast cancer Social History Housing: House Alcohol intake: current Patient Tobacco Use Status: Current everyday Tobacco user Cigarettes Per Day: 2 e-Cigarette/Vaping Use: Never Used Second Hand Smoke Exposure: No service: No Current occupational status: employed Cognitive needs: No Hearing needs: No Vision needs: No Physical Exam There are no Cushingoid features but there is the presence of central obesity.. Absence of blue sclera. Absence of kyphosis. Thyroid gland is of nl size and weighs 15 gms. There are no thyroid nodules palpated. Lungs CTA. Heart S1 S2 Reg R/R Abdominal exam benign. Muscle strength 5/5 . Examination of spine reveals absence of tenderness on palpation Assessment & Plan Assessment & Plan (1) Osteoporosis of lumbar spine: Code(s): M81.0 - Age-related osteoporosis without current pathological fracture Category: Medical Plan: This is a 69-year-old white female with a history of osteoporosis. Rule out secondary causes Plan is to check a phosphorus, SPEP, urine immunofixation, 24 hour urine for calcium and creatinine. Will ensure 1200 mg of calcium and 2000 IU of vitamin D3. Assuming secondary workup was negative could consider use of anabolic initially like Evenity, Forteo or Tymlos proceeded by an anti resorptive considering the high risk for fracture and low bone density . We will check 24 hour urine for cortisol and creatinine although doubt Blaze syndrome but patient does have central obesity and low bone density Orders: Orders Protein Electrophoresis, Serum Today M81.0 - Age-related osteoporosis without current pathological fracture Calcium, 24 Hr Ur Today M81.0 - Age-related osteoporosis without current pathological fracture Phosphorus Today M81.0 - Age-related osteoporosis without current pathological fracture Immunofixation, Random Urine Today M81.0 - Age-related osteoporosis without current pathological fracture Creatinine, 24 Hr Group Today M81.0 - Age-related osteoporosis without current pathological fracture Cortisol, Free 24Hr Urine Today M81.0 - Age-related osteoporosis without current pathological fracture Coding Level of Care Code New Pt Level 4 (89702) Diagnoses Osteoporosis of lumbar spine M81.0
[2024-08-30 13:50] VITALS: BP 110/70; PULSE 71; BMI 27.1
== END 2024-08-30 14:43 | disposition home or self-care (01) ==
PROVIDERS: PCP Internal Medicine; Visit Provider Internal Medicine Endocrinology, Diabetes & Metabolism
DX: M81.0 Age-related osteoporosis without current pathological fracture (principal)
CPT/HCPCS: 99204

== ENCOUNTER → 2024-08-30 13:35 | Outpatient (BNVA) | payer MEDICARE, SELFPAY | PROVIDERS: PCP Internal Medicine; Visit Provider Internal Medicine Endocrinology, Diabetes & Metabolism | DX: M81.0 Age-related osteoporosis without current pathological fracture (principal) | CPT/HCPCS: 99202 ==

== ENCOUNTER 2024-09-05 10:45 | Outpatient (AMB) | payer MEDICARE, SELFPAY ==
--- NOTE | 2024-09-05 11:19 | AM.OFFVISNUR ---
Intake Visit Reasons: B12 injection Allergies Codeine Sulfate Adverse Reaction (Unknown, Uncoded 08/30/24 13:50) nausea Nursing Note Pt came in ambulate (I) gait steady. Medicated x 1 with Vitamin B12 to right deltoid. Office Meds cyanocobalamin (vitamin B-12) 1,000 mcg/mL injection solution Performing Provider: Kalina Palacios MD Performing Location: [facility] [place] [facility] Administered by: Elana Colon on 09/05/24 11:20 Dose Route Admin Location Dispensed Lot Number Expiration Date [facility] International Operations Manager 1,000 mcg IM 1 mL [id number] 08/12/25 42827-979-49 [employer] Assessment & Plan Assessment & Plan Orders: Orders AMB Vitamin B12 Injection Patient Supplied Today E53.8 - Deficiency of other specified B group vitamins Medications: New cyanocobalamin (vitamin B-12) 1,000 mcg IM ONCE 1 mL 0RF E53.8 - Deficiency of other specified B group vitamins
== END 2024-09-05 11:11 | disposition home or self-care (01) ==
PROVIDERS: PCP Internal Medicine; Visit Provider Internal Medicine
DX: E53.8 Deficiency of other specified B group vitamins (principal)

== ENCOUNTER → 2024-09-05 10:45 | Outpatient (BNVA) | payer MEDICARE, SELFPAY | PROVIDERS: PCP Internal Medicine; Visit Provider Internal Medicine | DX: E53.8 Deficiency of other specified B group vitamins (principal) | CPT/HCPCS: 96372; J3420 ==

== ENCOUNTER 2024-09-06 08:31 | Outpatient (REF) | payer MEDICARE, SELFPAY ==
[2024-09-06 10:56] LABS: Phosphorus 3.4 mg/dL (2.7-4.5)
[2024-09-06 11:30] LABS: Creatinine, mg/dL 31.96
[2024-09-06 11:41] LABS: Creatinine, 24Hr Urine 0.9 G/Day (1.0-2.0); Total Volume 24 Hour Urine 2700 mL
[2024-09-07 18:24] LABS: Calcium, 24 Hr Urine 43 mg/24 h; Calcium/Creatinine Ratio 48 mg/g creat (30-275); Creatinine 24Hr Urine 0.89 g/24 h (0.50-2.15)
[2024-09-11 09:18] LABS: Prot Elec - Albumin 4.4 g/dL (3.8-4.8); Prot Elec - Alpha1 0.3 g/dL (0.2-0.3); Prot Elec - Alpha2 0.7 g/dL (0.5-0.9); Prot Elec - Beta 1 0.4 g/dL (0.4-0.6); Prot Elec - Beta 2 0.3 g/dL (0.2-0.5); Prot Elec - Gamma 0.7 g/dL (0.8-1.7); Prot Elec - Total Protein 6.8 g/dL (6.1-8.1)
[2024-09-13 20:53] LABS: Cortisol Free, 24 Hr Urine 8.7 mcg/24 h (4.0-50.0); Total Volume, 24 Hr Urine 2700 mL
== END 2024-09-06 08:32 | disposition home or self-care (01) ==
LOC: HO.10HDL 08:31
PROVIDERS: Visit Provider Internal Medicine Endocrinology, Diabetes & Metabolism
DX: M81.0 Age-related osteoporosis without current pathological fracture (principal)
CPT/HCPCS: 82340; 82530; 82570; 84100; 84165; 86335

== ENCOUNTER 2024-09-13 09:26 | Outpatient (AMB) | payer MEDICARE, SELFPAY ==
--- NOTE | 2024-09-13 10:16 | A.OFFPC_ITS ---
Vital Signs 09/13/24 10:17 Height 5 ft Weight 139 lb BMI 27.1 BP 130/80 Blood Pressure Location Rt brachial Position Sitting Pulse 67 Pulse Source Pulse Oximeter Pulse Oximetry (%) 98 Oxygen Delivery Method Room Air Intake Visit Reasons: PE Intake Note: Pt is here today for her PE Allergies Codeine Sulfate Adverse Reaction (Unknown, Uncoded 09/13/24 10:55) nausea Medication List - Last Reconciled 09/13/24 by Kalina Palacios MD alprazolam 0.5 mg PO DAILY PRN aspirin 81 mg PO DAILY cholecalciferol (vitamin D3) 50 mcg PO DAILY cyanocobalamin (vitamin B-12) 1,000 mcg subcut Q4W famotidine 20 mg PO DAILY PRN levothyroxine 50 mcg PO DAILY linaclotide (Linzess) 72 mcg PO DAILY meclizine 25 mg PO BID PRN omeprazole 20 mg PO DAILY ondansetron HCl 4 mg PO DAILY PRN rosuvastatin 40 mg PO DAILY Tobacco use date assessed: 09/13/24 Fall risk assessment: No Falls in past year Last assessed Fall Risk: 09/13/24 Dental Screening Dental Screen Date: 09/13/24 Did you have a dental visit in the last 12 months?: Yes Did you have a dental problem in the last 6 months where you did not have access to dental care?: No Was dental information given to patient?: Patient has dentist HPI PE HPI Details - The patient is a 69-year-old female pr esenting today for her physical exam. - She has been dealing with anxiety, man aging it with alprazolam, and stopped using escitalopram as it was making her more anxious and has tried buspirone in the past which was ineffective - The patient mentioned communication di fficulties with her due to his hearing loss and her associated stress. - Constipation is current but managed we ll with Linzess prescribed by her GI; GERD symptoms are also noted and managed with omeprazole and occasional famotidine at night. - Up-to-date with vaccines, including CO VID, flu, pneumonia, and shingles. - Last colonoscopy normal done 04/23/[address] Langley, repeat in 2026 -she has osteoporosis as noted on recent bone density scan, currently followed by Dr. Delcid -overdue for her screening mammogram, no longer gets cervical cancer screenings. FORMERLY [facility], [facility] Medical History Osteoporosis of lumbar spine Vitamin B12 deficiency History of fracture of foot History of recurrent TIAs Chronic GERD Generalized anxiety disorder Dyslipidemia Surgical History Hx of colonoscopy Family History Father Coronary artery disease Brother Coronary artery disease Paternal Grandmother Breast cancer Social History Housing: House Alcohol intake: current Patient Tobacco Use Status: Current everyday Tobacco user Cigarettes Per Day: 2 e-Cigarette/Vaping Use: Never Used Second Hand Smoke Exposure: No service: No Current occupational status: employed Cognitive needs: No Hearing needs: No Vision needs: No Questionnaire PHQ-9 Over the last 2 weeks, how often have you been bothered by any of the following problems? 1. Little interest or pleasure in doing things: not at all 2. Feeling down, depressed, or hopeless: not at all 3. Trouble falling or staying asleep, or sleeping too much: not at all 4. Feeling tired or having little energy: not at all 5. Poor appetite or overeating: not at all 6. Feeling bad about yourself - or that you are a failure or have let yourself or your family down: not at all 7. Trouble concentrating on things, such as reading the newspaper or watching television: not at all 8. Moving or speaking so slowly that other people could have noticed. Or the opposite - being so fidgety or restless that you have been moving around a lot more than usual: not at all 9. Thoughts that you would be better off or of hurting yourself in some way: not at all Total score: 0 Depression Screening Interpretation: Negative Depression Screening Done: Yes 52942 - PHQ-9 Billing: Yes Source: Developed by Drs. Jason Grimes, Gem Beckford, Atul Miramontes and colleagues, with an educational ed from [employer]. Thrive Questionnaire Date Thrive assessed: 09/10/24 I am a: Patient What is your living situation today?: I have a steady place to live Within the past 12 months, did the food you bought not last and you didn't have the money to get more?: Never true Within the past 12 months, did you worry whether your food would run out before you got money to buy more?: Never true Do you have trouble paying for medicines?: No Do you have trouble getting transportation to medical appointments?: No Do you have trouble paying your heating and electricity bill?: No Do you have trouble taking care of your child, family member or friend?: No Do you have trouble with day-to-day activities such as bathing, preparing meals, shopping, managing finances, etc.?: No Are you currently unemployed and looking for a job?: No Are you interested in more education?: No Please select the resources that you would like help with: None Currently or been in a relationship where the following occur: No concerns reported THRIVE Score: 0 AUDIT C Alcohol Use Questionnaire (AUDIT-C) 1. How often do you have a drink containing alcohol?: 2-3 times a week Total Score: 3 MIKHAIL-7 AMB Questionnaire MIKHAIL-7 Date MIKHAIL - 7 assessed: 09/14/24 Feeling nervous, anxious, or on edge: 1 = Several days Not being able to stop or control worryin = Several days Worrying too much about different things: 1 = Several days Trouble relaxin = Not at all Being so restless that it is hard to sit still: 0 = Not at all Becoming easily annoyed or irritable: 0 = Not at all Feeling afraid as if something awful might happen: 1 = Several days Total MIKHAIL-7 score (0-4 normal; 5-9 mild; 10-14 moderate; 15-21 severe): 4 Source: Developed by Drs. Jason Grimes, Gem Beckford, Atul Miramontes and colleagues, with an educational ed from [employer]. MIKHAIL-7 Assessment Billing MIKHAIL-7 Assessment Tool: MIKHAIL-7 Assessment 11276 Review of Systems Const Denies body aches, Reports difficulty sleeping (Occasional), Denies fatigue and Denies headache(s) Eyes Reports no additional complaints ENT Reports Normal hearing present, Denies dizziness, Denies headache(s) and Denies disequilibrium Card Denies chest pain, Denies rapid heart rate, Denies irregular heart rhythm and Denies dyspnea Resp Denies chest congestion, Denies cough and Denies dyspnea GI Denies abdominal pain and Reports heartburn Reports no additional complaints Musc Reports no additional complaints Skin/Breast Denies breast pain, Denies breast mass and Denies rash Neuro Reports Normal hearing present, Denies dizziness, Denies headache(s), Denies Sensory deficit (Neuro), Reports paresthesias and Denies disequilibrium Psych Reports as per HPI Endo Denies fatigue Galen/Lymph Reports no additional complaints Aller/Immun Reports no additional complaints Physical exam (Primary Care) Vital Signs: Last Vital Signs Pulse 67 09/13/24 10:17 BP 130/80 09/13/24 10:17 Pulse Ox 98 09/13/24 10:17 Oxygen Delivery Method Room Air 09/13/24 10:17 BMI result Body Mass Index 27.1 Tobacco/Smoking Status: Tobacco use Status Tobacco use date assessed 09/13/24 09/13/24 10:19 Patient Tobacco Use Status Current everyday Tobacco 09/13/24 10:16 e-Cigarette/Vaping Use Never Used 09/13/24 10:16 PHQ-9: PHQ-9 Score PHQ-9: Total score 0 09/14/24 00:45 Depression Screening Interpretation: Negative Thrive Assessment: Date of Thrive Assessment Date Thrive assessed 09/10/24 09/13/24 10:16 Currently or been in a relationship where the following occur: No concerns reported Const General: comfortable, no acute distress and alert Orientation/consciousness: patient oriented x3 HENMT Ears: external ears normal, TM's normal bilaterally and EAC's normal Mouth: oropharynx normal and moist mucous membranes Eyes General: appearance normal, both eyes and all related structures Neck Neck: Yes full ROM, Yes no lymphadenopathy and Yes supple Chest Breast/axilla palpation: normal palpation of the breasts Resp Effort & Inspection: normal respiratory effort and able to speak in complete sentences Auscultation: clear to auscultation bilaterally Cardio Rate: regular rate Rhythm: regular rhythm Heart sounds: S1 normal heart sound present and S2 normal heart sound present GI Palpation (GI): Soft to palpation, nontender and no masses Auscultation: normal bowel sounds General: Yes no CVA tenderness and Yes deferred Back/Spine/Pelvis Back: no CVA tenderness and No back tenderness Skin General skin exam: no rashes or lesions noted Neuro General: patient oriented x3, gait normal, tone normal, moves all extremities and no focal motor deficits Cranial nerves: Yes Normal hearing present Sensory Exam: No Sensory deficit (Neuro) Extrem General: Yes full ROM and Yes no clubbing, cyanosis or edema Psych Appearance: grossly normal and well kempt Mental Status: mental status grossly normal Speech and movement: Normal speech and movement present Affect: normal affect Results Reviewed Results Reviewed: Laboratory Tests 01/24/22 09/06/24 07:09 08:36 Phosphorus 3.4 Vitamin B6 102.3 H Name: Veronica Coronado Age/Sex: 69/F : 1955 Unit#: [id number] Attend Dr: Kalina Palacios MD Re08/25/24 Status: DEP REF Location: [facility] Disch: SPEC : [id number] SHERLYN: 08/25/24 STATUS: COMP REQ : [id number] RECD: 08/25/24-[address]: Kalina Palacios MD COMP: 08/25/24-1346 ENTERED: 08/25/24-[address]: ORDERED: Met Prof Fast, AST, ALT, Lipid Panel, Vitamin D 25-OH, Free T4, TSH Test Result Flag Reference Sodium 142 135-145 mmol/L Potassium 3.9 3.3-5.1 mmol/L CL 106 96-108 mmol/L CO2 27 22-29 mmol/L Gap 13 12-20 BUN 11 9-16 mg/dL Creat 0.91 0.5-1.4 mg/dL eGFR > 60 Chronic Kidney Disease: Estimated GFR < 60 mL/min/1.73m2 Severe Kidney Disease: Estimated GFR < 15 mL/min/1.73m2 FBS 115 H 60-99 mg/dL A fasting glucose from 100-125 mg/dl is considered impaired (pre-diabetes). CA 9.6 # 8.4-10.2 mg/dL AST (GOT) 27 5-31 U/L ALT (GPT) 31 0-31 U/L Triglyceride 164 H <150 mg/dL Desirable Triglyceride: less than 150 mg/dL Borderline High Triglyceride 150-199 mg/dL High Triglyceride: 200-499 mg/dL Very High Triglyceride: greater than or equal to 5OO mg/dL Cholesterol 185 <200 mg/dL Desirable Cholesterol: less than 200 mg/dL Borderline High Cholesterol: 200-239 mg/dL High Cholesterol: greater than 239 mg/dL LDL Calculated 84 <100 mg/dL Desirable LDL: less than 100 mg/dL Near Optimal/Above Optimal LDL: 110-129 mg/dL Borderline High LDL: 130-159 mg/dL High LDL: 160-189 mg/dL Very High LDL: greater than or equal to 190 mg/dL HDL 69 >40 mg/dL Desirable HDL: greater than 40 mg/dL Note: This HDL assay may give artificially low results in patients with liver disease. Vit D 25-OH Tot 68.1 >30 ng/mL Health Based Reference Values* < 20 ng/mL Deficient 20-30 ng/mL Insufficient > 30 ng/mL Sufficient *Kristina CONCEPCION. N Engl J Med. 2007;357:266-280 Care must be taken in interpreting Vitamin D results from different laboratories and methodologies. Published data demonstrated that results from patients undergoing hemodialysis may show a negative bias when tested with various automated 25-OH vitamin D assays when compared to LC-MS/MS. When testing samples from patients whose predominant form of Vitamin D is Vitamin D2, such as patients receiving Vitamin D2 supplementation, results that are subtherapeutic should be confirmed with another method such as LC-MS/MS. Free T4 1.16 0.71-1.85 ng/dL TSH 3rd Gen. 1.43 0.32-4.0 uIU/mL TSH 3rd Generation ([facility]) Coding Level of Care Code Est Pt Prev Care >65y(36620) Diagnoses Annual visit for general adult medical examination with abnormal findings Z00. Generalized anxiety disorder F41.1 Osteoporosis of lumbar spine M81.0 Vitamin B12 deficiency E53.8 Chronic GERD K21.9 Acquired hypothyroidism E03.9 Dyslipidemia E78.5 Additional Codes MIKHAIL-7 Assessment Billing - MIKHAIL-7 Assessment Tool: MIKHAIL-7 Assessment 59370 ([id number]) PHQ-9 - 75603 - PHQ-9 Billing: Yes ([id number]) Assessment & Plan Assessment & Plan (1) Annual visit for general adult medical examination with abnormal findings: Code(s): Z00.01 - Encounter for general adult medical examination with abnormal findings Plan: Recent fasting lab results reviewed with patient. Up-to-date with her bone density scan, currently followed by Dr. Delcid., reminded to her screening mammogram scheduled, which is overdue, up-to-date with her bone density scan. Up-to-date to his screening colonoscopy due again in [address] Perez. Up-to-date with all her vaccinations. (2) Generalized anxiety disorder: Code(s): F41.1 - Generalized anxiety disorder Category: Medical Plan: Will try on bupropion SR 100 mg taken once tablet once a day in a.m.. May take an occasional alprazolam as needed for acute anxiety/panic attacks. Instructed on proper behavioral techniques on how to control anxiety. (3) Osteoporosis of lumbar spine: Code(s): M81.0 - Age-related osteoporosis without current pathological fracture Category: Medical Plan: Followed by Dr. Delcid, continue with taking vitamin-D 3 and adequate calcium from dietary sources (4) Vitamin B12 deficiency: Code(s): E53.8 - Deficiency of other specified B group vitamins Category: Medical Plan: Last vitamin B12 level was within normal limits, continue with monthly B12 injections (5) Chronic GERD: Code(s): K21.9 - Gastro-esophageal reflux disease without esophagitis Category: Medical Plan: Currently on omeprazole and famotidine (6) Acquired hypothyroidism: Code(s): E03.9 - Hypothyroidism, unspecified Category: Medical Plan: Currently on levothyroxine 50 mcg daily, with last thyroid levels within normal limits (7) Dyslipidemia: Code(s): E78.5 - Hyperlipidemia, unspecified Category: Medical Plan: Last fasting lipids are within normal limits . Continue rosuvastatin 40 mg daily Plan I discussed with the patient the potential benefits and side effects of bupropion as an alternative for managing her anxiety. We reviewed the importance of adhering to the treatment regimen for effectiveness. I advised the patient to monitor her blood pressure regularly, and we discussed the potential options and changes to her current treatment. The patient expressed understanding and agreed to start the medication if decided but was hesitant about immediate initiation. - Monitor your blood pressure regularly and report any significant changes. - If you decide to start bupropion, make sure to take it consistently for effectiveness. - Continue taking your medications as prescribed. - Keep track of anxiety symptoms and note any changes. - Stay informed about side effects and discontinue use if severe reactions occur. - Schedule a telehealth visit four weeks after starting bupropion. - Maintain your healthy lifestyle practices, including exercise and diet. Medications: New bupropion HCl SR 100 mg PO QAM 30 tabs 0RF NS F41.1 - Generalized anxiety disorder
[2024-09-13 10:17] VITALS: BP 130/80; PULSE 67; O2SAT 98; BMI 27.1
--- OUTSIDE RECORDS SUMMARY | 2024-09-13 10:18 | XMS_ITS | Patient Health Record ---
Author Organization [facility] Address [address] [place] [address] Care Team Providers Care Fast Food Team Member Name Role Phone Yvonne Phillips Unavailable [phone] Reason For Referral No Information Medications Medication SIG (Take, Route, Fr equency, Duration) Notes Start Date End Date Status Vitamin E 200UNITS 1 ORAL daily for - [facility] 12/07/2012 Active Vitamin D3 1000 IU ORAL daily for - [facility] 12/07/2012 Active Fish Oil 1200MG 1 ORAL daily for [facility] 12/07/2012 Active Calcium 1 ORAL daily for -3 [facility] 12/07/2012 Active PriLOSEC OTC 20MG 1 ORAL daily for - [facility] 12/07/2012 Active Lipitor 10MG 1 ORAL daily for - [facility] 12/07/2012 Active Vitamin B12 1 ORAL daily for -3 [facility] 12/07/2012 Active Synthroid UNKNOWN 1 ORAL daily for - [facility] 12/07/2012 Active Vitamin B6 1 ORAL daily for - [facility] 12/07/2012 Active Problems Problem Type SNOMED Code ICD Code Onset Dates Problem Status W/U Status Risk Notes Problem Hypothyroidism (68919372) Unspecified hypothyroidism (244.9) Active confirmed Major Problem Hyperlipidemia (10673905) Other and unspecified hyperlipidemia (272.4) Active confirmed Major Problem Anxiety state (740853820) Anxiety state, unspecified (300.00) Active confirmed Major Problem Asthma (disorder) (819647209) Asthma, unspecified, unspecified status (493.90) Active confirmed Major Problem Esophageal reflux (305164496) Esophageal reflux (530.81) Active confirmed Major Problem Gynecological examination normal (849754710518373) Routine gynecological examination (V72.31) Active confirmed Major Problem Screening for malignant neoplasm of colon (131698309) Special screening for malignant neoplasms, colon (V76.51) Active confirmed Major Plan Of Treatment No Information Insurance Providers Payer Name Payer Address Payer Phone Subscriber Number Group Number Insured Name Patient Relationship to Insured Coverage Start Date Coverage End Date [facility] [address] [place] [address] [id number] [id number] VICENTE Self - patient is the insured
--- OUTSIDE RECORDS SUMMARY | 2024-09-13 10:18 | XMS_ITS | Clinical Summary ---
Author Organization [facility] Address [address] [place] [address] Care Team Providers Care Personal Care Aide Name Role Phone Unavailable Primary Care Provider Unavailabl e Medications Medication Sig Dispensed Refills Start Date End Date Status linaCLOtide (Linzess) 72 mcg capsule Take 1 capsule (72 mcg total) by mouth 1 (one) time each day before breakfast. 30 capsule 2 06/28/2024 06/28/2025 Active Encounters Date Type Department Care Team Description 07/26/2024 Telephone Gastroenterology - [address] [address] Bernie Perez MD 06/28/2024 Telephone Gastroenterology - [address] [phone] Daria Clark MA 06/28/2024 Telephone Gastroenterology - [address] [address] Ni Smith MA 06/27/2024 Telephone Gastroenterology - [address] [address] Ni Smith MA from Last 3 Months Social History Tobacco Use Types Packs/Day Years Used Date Smoking Tobacco: Never Assessed Sex and Gender Information Value Date Recorded Sex Assigned at Not on file Gender Identity Not on file Sexual Orientation Not on file Plan of Treatment Health Maintenance Due Date Last Done Comments Breast Cancer Screening 1955 DTaP,Tdap,and Td Vaccines (1 - Tdap) 02/19/1976 Zoster Vaccines (1 of 2) 2007 Pneumococcal Vaccine: 65+ Ye ars (1 of 1 - PCV) 2022 Colorectal Cancer Screening: Colonoscopy 07/23/2022 Depression Screening 07/23/2022 Falls Risk Assessment 07/23/2022 Hepatitis C Screening 07/23/2022 Osteoporosis Screening (Bone Density Screening) 07/23/2022 Social Influencers of Health Screening 07/23/2022 COVID-19 Vaccine ( - 2023-2 5 season) 2024 Influenza Vaccine (#1) 2024 RSV Immunization Patients 60 + Years Old (1 - 1-dose 75+ series) 02/19/2032 HIB Vaccines Aged Out No longer eligi ble based on patient's age to complete this topic HPV Vaccines Aged Out No longer eligi ble based on patient's age to complete this topic Hepatitis A Vaccines Aged Out No long er eligible based on patient's age to complete this topic Hepatitis B Vaccines Aged Out No long er eligible based on patient's age to complete this topic IPV Vaccines Aged Out No longer eligi ble based on patient's age to complete this topic MMR Vaccines Aged Out No longer eligi ble based on patient's age to complete this topic Meningococcal ACWY Vaccine Aged Out N o longer eligible based on patient's age to complete this topic RSV Immunization Patients Un иван 20 months Aged Out No longer eligible b ased on patient's age to complete this topic Varicella Vaccines Aged Out No longer eligible based on patient's age to complete this topic
== END 2024-09-13 11:13 | disposition home or self-care (01) ==
PROVIDERS: PCP Internal Medicine; Visit Provider Internal Medicine
DX: Z00.01 Encounter for general adult medical examination with abnormal findings (principal); F41.1 Generalized anxiety disorder; M81.0 Age-related osteoporosis without current pathological fracture; E53.8 Deficiency of other specified B group vitamins; K21.9 Gastro-esophageal reflux disease without esophagitis; E03.9 Hypothyroidism, unspecified; E78.5 Hyperlipidemia, unspecified

== ENCOUNTER → 2024-09-13 09:26 | Outpatient (BNVA) | payer MEDICARE, SELFPAY | PROVIDERS: PCP Internal Medicine; Visit Provider Internal Medicine | DX: Z00.01 Encounter for general adult medical examination with abnormal findings (principal); F41.1 Generalized anxiety disorder; M81.0 Age-related osteoporosis without current pathological fracture; E53.8 Deficiency of other specified B group vitamins; E03.9 Hypothyroidism, unspecified; E78.5 Hyperlipidemia, unspecified; K21.9 Gastro-esophageal reflux disease without esophagitis | CPT/HCPCS: 96127; 99397 ==

== ENCOUNTER 2024-10-03 10:35 | Outpatient (AMB) | payer MEDICARE, SELFPAY ==
--- NOTE | 2024-10-03 10:57 | AM.OFFVISNUR ---
Intake Visit Reasons: B12 injection Allergies Codeine Sulfate Adverse Reaction (Unknown, Uncoded 09/13/24 10:55) nausea Nursing Note Pt ambulated (I) gait steady to room 7. Medicated x 1 with medication Vitamin B12 to right deltoid. Pt tolerated well. Office Meds cyanocobalamin (vitamin B-12) 1,000 mcg/mL injection solution Performing Provider: Kalina Palacios MD Performing [place] [facility] [place] [facility] Administered by: Elana Colon on 10/03/24 10:58 Dose Route Admin Location Dispensed Lot Number Expiration Date [facility] Continuous Improvement Intern 1,000 mcg IM right deltoid 1 mL [id number] 08/12/25 60070-830-26 [email or web address] Assessment & Plan Assessment & Plan Orders: Orders AMB Vitamin B12 Injection Patient Supplied Today E53.8 - Deficiency of other specified B group vitamins Medications: New cyanocobalamin (vitamin B-12) 1,000 mcg IM ONCE 1 mL 0RF E53.8 - Deficiency of other specified B group vitamins Coding
== END 2024-10-03 10:52 | disposition home or self-care (01) ==
PROVIDERS: PCP Internal Medicine; Visit Provider Internal Medicine
DX: E53.8 Deficiency of other specified B group vitamins (principal)

== ENCOUNTER → 2024-10-03 10:35 | Outpatient (BNVA) | payer MEDICARE, SELFPAY | PROVIDERS: PCP Internal Medicine; Visit Provider Internal Medicine | DX: E53.8 Deficiency of other specified B group vitamins (principal) | CPT/HCPCS: 96372; J3420 ==

== ENCOUNTER 2024-10-24 10:41 | Outpatient (AMB) | payer MEDICARE, SELFPAY ==
--- NOTE | 2024-10-24 10:51 | AM.OFFVISNUR ---
Intake Visit Reasons: B12 Shot Allergies Codeine Sulfate Adverse Reaction (Unknown, Uncoded 09/13/24 10:55) nausea Nursing Note Amb (I) gait steady to room 1, medication x 1 with Vitamin B12 to right deltoid. Office Meds cyanocobalamin (vitamin B-12) 1,000 mcg/mL injection solution Performing Provider: Kalina Palcaios MD [place] [facility] [place] Administered by: Elana Colon on 10/24/24 10:52 Dose Route Admin Location Dispensed Lot Number Expiration Date [facility] [employer] 1,000 mcg IM 1 mL [id number] 08/12/25 76785-326-46 [employer] Assessment & Plan Assessment & Plan Orders: Orders AMB Vitamin B12 Injection Patient Supplied Today E53.8 - Deficiency of other specified B group vitamins Medications: New cyanocobalamin (vitamin B-12) 1,000 mcg IM ONCE 1 mL 0RF E53.8 - Deficiency of other specified B group vitamins Coding
--- OUTSIDE RECORDS SUMMARY | 2024-10-24 12:33 | XMS_ITS | Patient Health Record ---
Author Organization [facility] Address [address] [place] [address] Care Team Providers Care Harp Maker Name Role Phone Yvonne Phillips Unavailable [phone] Reason For Referral No Information Medications Medication SIG (Take, Route, Fr equency, Duration) Notes Start Date End Date Status Vitamin E 200UNITS 1 ORAL daily for - [facility] 12/07/2012 Active Vitamin D3 1000 IU ORAL daily for - [facility] 12/07/2012 Active Fish Oil 1200MG 1 ORAL daily for [facility] 12/07/2012 Active Calcium 1 ORAL daily for -3 [facility] 12/07/2012 Active PriLOSEC OTC 20MG 1 ORAL daily for - [facility] 12/07/2012 Active Lipitor 10MG 1 ORAL daily for - [facility] 12/07/2012 Active Vitamin B12 1 ORAL daily for -3 [facility] 12/07/2012 Active Synthroid UNKNOWN 1 ORAL daily for - [facility] 12/07/2012 Active Vitamin B6 1 ORAL daily for - [facility] 12/07/2012 Active Problems Problem Type SNOMED Code ICD Code Onset Dates Problem Status W/U Status Risk Notes Problem Hypothyroidism (62034125) Unspecified hypothyroidism (244.9) Active confirmed Major Problem Hyperlipidemia (21538091) Other and unspecified hyperlipidemia (272.4) Active confirmed Major Problem Anxiety state (211580364) Anxiety state, unspecified (300.00) Active confirmed Major Problem Asthma (disorder) (265567980) Asthma, unspecified, unspecified status (493.90) Active confirmed Major Problem Esophageal reflux (848130839) Esophageal reflux (530.81) Active confirmed Major Problem Gynecological examination normal (912853498976013) Routine gynecological examination (V72.31) Active confirmed Major Problem Screening for malignant neoplasm of colon (051522156) Special screening for malignant neoplasms, colon (V76.51) Active confirmed Major Plan Of Treatment No Information Insurance Providers Payer Name Payer Address Payer Phone Subscriber Number Group Number Insured Name Patient Relationship to Insured Coverage Start Date Coverage End Date [facility] [address] [place] [address] [id number] KARLA VICENTE Self - patient is the insured
--- OUTSIDE RECORDS SUMMARY | 2024-10-24 12:33 | XMS_ITS | Clinical Summary ---
Author Organization [facility] Address [address] [place] [address] Care Team Providers Care Smocker Name Role Phone Unavailable Primary Care Provider Unavailabl e Medications linaCLOtide (Linzess) 72 mcg capsule Take 1 capsule (72 mcg total) by mouth 1 (one) time each day before breakfast. 30 capsule 2 06/28/2024 Active Encounters Date Type Department Care Team Description 10/10/2024 Telephone Gastroenterology - [address] [phone] Bernie Perez MD 09/15/2024 Telephone Gastroenterology - [address] [phone] Bernie Perez MD 07/26/2024 Telephone Gastroenterology - [address] [place] [phone] Bernie Perez MD from Last 3 Months Social History Tobacco Use Types Packs/Day Years Used Date Smoking Tobacco: Never Assessed Comments Unknown Sex and Gender Information Value Date Recorded Sex Assigned at Not on file Legal Sex Female 4:58 PM EST Gender Identity Not on file Sexual Orientation Not on file Plan of Treatment Upcoming Encounters Date Type Department Care Team ([facility] st Contact Info) Description 10/27/2024 2:40 PM EST Office Visit Gastroenterology - [address] [phone] Carol Nuñez PA [address] [place] [id number] Health Maintenance Due Date Last Done Comments Breast Cancer Screening 1955 DTaP,Tdap,and Td Vaccines (1 - Tdap) 02/19/1976 Pneumococcal Vaccine: 50+ Ye ars (1 of 1 - PCV) 2007 Zoster Vaccines (1 of 2) 2007 Colorectal Cancer Screening: Colonoscopy 07/23/2022 Depression Screening 07/23/2022 Falls Risk Assessment 07/23/2022 Hepatitis C Screening 07/23/2022 Medicare Annual Wellness Visit 07/23/2022 Osteoporosis Screening (Bone Density Screening) 07/23/2022 [...] patient's age to complete this topic Meningococcal B Vacine Aged Out No lo nger eligible based on patient's age to complete this topic RSV Immunization Patients Un иван 20 months Aged Out No longer eligible b ased on patient's age to complete this topic Varicella Vaccines Aged Out No longer eligible based on patient's age to complete this topic Insurance BLUE [employer] - [place] MEDICARE [place]ANTAGE
--- OUTSIDE RECORDS SUMMARY | 2024-10-24 12:33 | XMS_ITS | Encounter Summary ---
Author Organization [facility] Address [address] [place] [address] Care Team Providers Care Quality Assistant Name Role Phone Unavailable Primary Care Provider Unavailabl e Encounter Details Date Type Department Care Team (Late st Contact Info) Description 10/10/2024 Telephone Gastroenterology - 299 [address] [facility] [address] [place] [phone] Bernie Perez MD 299 [facility] [address] [place] [address] Social History Tobacco Use Types Packs/Day Years Used Date Smoking Tobacco: Never Assessed Comments Unknown Sex and Gender Information Value Date Recorded Sex Assigned at Not on file Legal Sex Female 4:58 PM EST Gender Identity Not on file Sexual Orientation Not on file documented as of this encounter Progress Notes * Zohra Anderson MA - 10/10/2024 2:45 PM EST Lmom to cb and schedule an office visit. * Idalia Mays - 10/10/2024 2:36 PM EST PT ALSO STATES THIS HAS BEEN GOING ON FOR QUITE SOME TIME. PLEASE ADVISE AND CALL PT. * Idalia Mays - 10/10/2024 2:30 PM EST PT STATES HER STOMACH IS SWOLLEN AND ALMOST PRESENTS IF SHE WERE 5 MONTHS . documented in this encounter Plan of Treatment Upcoming Encounters Date Type Department Care Team (Late st Contact Info) Description 10/27/2024 2:40 PM EST Office Visit Gastroenterology - 299 [address] [facility] [address] [place] [phone] Carol Nuñez PA [address] [place] [phone] documented as of this encounter Visit Diagnoses Not on filedocumented in this encounter
== END 2024-10-24 10:52 | disposition home or self-care (01) ==
PROVIDERS: PCP Internal Medicine; Visit Provider Internal Medicine
DX: E53.8 Deficiency of other specified B group vitamins (principal)

== ENCOUNTER → 2024-10-24 10:41 | Outpatient (BNVA) | payer MEDICARE, SELFPAY | PROVIDERS: PCP Internal Medicine; Visit Provider Internal Medicine | DX: E53.8 Deficiency of other specified B group vitamins (principal) | CPT/HCPCS: 96372; J3420 ==

== ENCOUNTER 2024-11-01 13:19 | Outpatient (REF) | payer MEDICARE, SELFPAY ==
--- OUTSIDE RECORDS SUMMARY | 2024-11-01 16:09 | XMS_ITS | Encounter Summary ---
Author Organization [facility] Address [address] [place] [address] Care Team Providers Care Analytic Manager Name Role Phone Kalina Palacios MD Primary Care Provider [phone] Encounter Details Date Type Department Care Team (Latest Contact Info) Description 10/27/2024 3:36 PM EST - 10/27/2024 11:59 PM EST Hospital Encounter [facility] Xray [address] [place] [phone] Other constipation Discharge Disposition: Home or Self Care Social History Tobacco Use Types Packs/Day Years Used Date Smoking Tobacco: Every Day Cigarettes Smokeless Tobacco: Current Alcohol Use Standard Drinks/Week Comments Yes 0 (1 standard drink = 0.6 oz pur e alcohol) occasional Comments Unknown Sex and Gender Information Value Date Recorded Sex Assigned at Not on file Legal Sex Female 4:58 PM EST Gender Identity Not on file Sexual Orientation Not on file documented as of this encounter Medications at Time of Discharge ALPRAZolam (XANAX) 0.5 mg tablet Take 1 tablet (0.5 mg total) by mouth 2 (two) times a day if needed for anxiety. Max Daily Amount: 1 mg 10/12/2024 cyanocobalamin (VITAMIN B-12) 1,000 mcg/mL injection INJECT 1 ML INTO THE SKIN EVERY 4 WEEKS 10/24/2024 escitalopram (LEXAPRO) 10 mg tablet 0.5 tablets (5 mg total). 07/27/2024 famotidine (PEPCID) 20 mg tablet TAKE 1 TABLET BY MOUTH DAILY NEEDED FOR FOR HEARTBURN 05/10/2024 levothyroxine (SYNTHROID, LEVOTHROID) 50 mcg tablet Take 1 tablet (50 mcg total) by mouth 1 (one) time each day. 10/20/2024 linaCLOtide (Linzess) 72 mcg capsule Take 1 capsule (72 mcg total) by mouth 1 (one) time each day before breakfast. 30 capsule 2 06/28/2024 meclizine (ANTIVERT) 25 mg tablet take 1 tablet by mouth 3 times a day as needed for dizziness 11/13/2023 omeprazole (PriLOSEC) [address] capsule Take 1 capsule (20 mg total) by mouth 1 (one) time each day. 09/19/2024 ondansetron (ZOFRAN) 4 mg tablet Take 1 tablet (4 mg total) by mouth 2 (two) times a day. rosuvastatin (CRESTOR) 40 mg tablet Take 1 tablet (40 mg total) by mouth 1 (one) time each day. documented as of this encounter Discharge Disposition Disposition Code Departure Means Destination Home or Self Care documented in this encounter Progress Notes * EULALIA Teran - 10/27/2024 4:00 PM EST KUB looks good. Constipation is being treated appropriately with Linzess, continue as directed. A lot of gas seen on x-ray, please review the gas tips sheet with patient, that may be contributing to her abdominal bloating. Recommend gasx as needed. documented in this encounter Plan of Treatment Not on file documented as of this encounter Procedures Procedure Name Priority Date/Time Associated Diagnosis Comments XR ABDOMEN 1 VIEW Routine 10/27/2024 3:4 8 PM EST Other constipation documented in this encounter Results * XR Abdomen 1 View (10/27/2024 3:48 PM EST) Anatomical Region Laterality Modality Body Radiographic Alida ging 10/28/2024 9:11 AM EST Impressions 10/28/2024 9:12 AM EST Nonspecific nonobstructive bowel gas pattern. Constipation has resolved since 05/17/2024. Code 11987 -------- FINAL REPORT -------- Dictated By: Anderson Pope Dictated Date: 10/28/2024 09:11 ET Assigned Physician: Anderson Pope Reviewed and Electronically Signed By: Anderson Pope Signed Date: 10/28/2024 09:12 ET Workstation ID: [id number] Transcribed By: Self Edit Transcribed Date: 10/28/2024 09:11 ET Narrative 10/28/2024 9:12 AM EST HISTORY: The patient is a 69-year-old female for follow-up of constipation. FINDINGS: Supine radiographs of the abdomen demonstrate degenerative changes of the lumbar spine as also seen on the prior study performed 05/07/2024. The bowel gas pattern is nonobstructive. The volume of fecal material is not unusually increased indicating resolution of constipation since the prior study. Several gas-filled nondilated loops of small bowel are present, a nonspecific pattern. No mass or radiopaque calculus is seen. Procedure Note Anderson Pope MD - 10/28/2024 HISTORY: The patient is a 69-year-old female for follow-up ofconstipation. FINDINGS: Supine radiographs of the abdomen demonstrate degenerativechanges of the lumbar spine as also seen on the prior study performed05/07/2024. The bowel gas pattern is nonobstructive. The volume of fecalmaterial is not unusually increased indicating resolution of constipationsince the prior study. Several gas-filled nondilated loops of small bowelare present, a nonspecific pattern. No mass or radiopaque calculus isseen. IMPRESSION: Nonspecific nonobstructive bowel gas pattern. Constipation has resolvedsince 05/17/2024. Code 05000 -------- FINAL REPORT -------- Dictated By: Anderson Pope Dictated Date: 10/28/2024 09:11 ET Assigned Physician: Anderson Pope Reviewed and Electronically Signed By: Anderson Pope Signed Date: 10/28/2024 09:12 ET Workstation ID: [id number] Transcribed By: Self Edit Transcribed Date: 10/28/2024 09:11 ET Carol ESTEBAN IMG XR PROCEDURES Final Result documented in this encounter Visit Diagnoses Diagnosis Other constipation documented in this encounter Care Teams Analytic Manager Relationship Specialty Start Date End Date Kalina Palacios MD [address] [place] [phone] PCP - General Internal Medicine 10/27/24 documented as of this encounter
--- OUTSIDE RECORDS SUMMARY | 2024-11-01 16:09 | XMS_ITS | Encounter Summary ---
Author Organization [facility] Address [address] [place] [address] Care Team Providers Care Container Filler Name Role Phone Kalina Palacios MD Primary Care Provider Encounter Details Date Type Department Care Team (Late st Contact Info) Description 10/31/2024 Telephone Gastroenterology - 299 [address] [facility] [address] [place] [address] Nohemi Orozco MA Social History Tobacco Use Types Packs/Day Years [...] as of this encounter Progress Notes * Nohemi Orozco MA - 10/31/2024 1:01 PM EDT Spoke to patient and let her know per Carol that her KUB looks good. Constipation is being treated appropriately with Linzess, continue as directed. A lot of gas seen on x-ray, reviewed the gas tips sheet with patient, that may be contributing to her abdominal bloating. Recommend gasx as needed. * Nohemi Orozco MA - 10/31/2024 1:01 PM EDT ----- Message from EULALIA Curiel sent at 10/31/2024 12:40 PM EDT ----- KUB looks good. Constipation is being treated appropriately with Linzess, continue as directed. A lot of gas seen on x-ray, please review the gas tips sheet with patient, that may be contributing to her abdominal bloating. Recommend gasx as needed. documented in this encounter Plan of Treatment Not on file documented as of this encounter Visit Diagnoses Not on filedocumented in this encounter Care Teams Container Filler Relationship Specialty Start Date End Date Kalina Palacios MD [address] [place] [address] PCP - General Internal Medicine 10/27/24 documented as of this encounter
--- OUTSIDE RECORDS SUMMARY | 2024-11-01 16:09 | XMS_ITS | Clinical Summary ---
Author Organization [facility] [address] [facility] Address [address] [place] [address] Phone Care Team Providers Care Home Economics Extension Worker Name Role Phone Kalina Palacios MD Primary Care Provider Allergies Active Allergy Reactions Criticality Noted Date Comments Codeine 10/27/2024 Medications linaCLOtide (Linzess) 72 mcg capsule Take 1 capsule (72 mcg total) by mouth 1 (one) time each day before breakfast. 30 capsule 2 4 06/28/20 25 Active omeprazole (PriLOSEC) [address] capsule Take 1 capsule (20 mg total) by mouth 1 (one) time each day. 5 Active levothyroxine (SYNTHROID, LEVOTHROID) 50 mcg tablet Take 1 tablet (50 mcg total) by mouth 1 (one) time each day. 5 Active cyanocobalamin (VITAMIN B-12) 1,000 mcg/mL injection INJECT 1 ML INTO THE SKIN EVERY 4 WEEKS 5 Active rosuvastatin (CRESTOR) 40 mg tablet Take 1 tablet (40 mg total) by mouth 1 (one) time each day. Active escitalopram (LEXAPRO) 10 mg tablet 0.5 tablets (5 mg total). 4 Active famotidine (PEPCID) 20 mg tablet TAKE 1 TABLET BY MOUTH DAILY NEEDED FOR FOR HEARTBURN 4 Active ondansetron (ZOFRAN) 4 mg tablet Take 1 tablet (4 mg total) by mouth 2 (two) times a day. Active meclizine (ANTIVERT) 25 mg tablet take 1 tablet by mouth 3 times a day as needed for dizziness 4 Active ALPRAZolam (XANAX) 0.5 mg tablet Take 1 tablet (0.5 mg total) by mouth 2 (two) times a day if needed for anxiety. Max Daily Amount: 1 mg 5 Active Active Problems Problem Noted Date Diagnosed Date Dyslipidemia 10/27/2024 HTN (hypertension) 10/27/2024 GERD (gastroesophageal reflux disease) 5 Assessment & Plan (10/27/2024 5:29 PM EST): Not a concern at today's visit. I did give her a handout on the long-term effects of PPIs. Given her call in Aug 2024, I do not think adjusting the PPI at this time is a great idea (even though the patient does not remember this interaction). Stay on PPI as directed for now, consider adjustment if GERD symptoms do not flare x 3 months. Irritable bowel syndrome with constipation 10/27 Anxiety and depression 10/27/2024 Hypothyroid 10/27/2024 Encounters Date Type Department Care Team Description 10/31/2024 Telephone Gastroenterology - [address] [phone] Nohemi Orozco [place] 10/28/2024 Telephone Gastroenterology - [address] [phone] Carol Nuñez PA 10/28/2024 Telephone Gastroenterology - [address] [phone] Nohemi Orozco [place] 10/27/2024 3:36 PM EST - 10/27/2024 11:59 PM EST Hospital Encounter [facility] Xray [address] [place] [phone] Other constipation Discharge Disposition: Home or Self Care 10/27/2024 3:00 PM EST Lab Draw Station - [address] [phone] Abdominal distension; Other fatigue; Difficulty eating due to fatigue 10/27/2024 2:40 PM EST Office Visit Gastroenterology - [address] [phone] Carol Nuñez PA Abdominal distension (Primary Dx); Other fatigue; Other constipation; Gastroesophageal reflux disease without esophagitis; Difficulty eating due to fatigue 10/10/2024 Telephone Gastroenterology - [address] [phone] Bernie Perez MD 09/15/2024 Telephone Gastroenterology - [address] [phone] Bernie Perez MD from Last 3 Months Surgical History Surgery Date Site/Laterality Comments ESOPHAGOGASTRODUODENOSCOPY 03/13/2022 ESOPHAGOGASTRODUODENOSCOPY 04/23/2017 COLONOSCOPY 04/23/2017 recall 10 yrs Family History Medical History Relation Name Comments Colon cancer Neg Hx Colon polyps Neg Hx Social History Tobacco Use Types Packs/Day Years Used Date Smoking Tobacco: Every Day Cigarettes Smokeless Tobacco: Current Tobacco Cessation:Ready to Q uit: Not Asked; Counseling Given: Not Answered Alcohol Use Standard Drinks/Week Comments Yes 0 (1 standard drink = 0.6 oz pur e alcohol) occasional Comments Unknown Sex and Gender Information Value Date Recorded Sex Assigned at Not on file Legal Sex Female 4:58 PM EST Gender Identity Not on file Sexual Orientation Not on file Obstetrics History Last Filed Vital Signs Vital Sign Reading Time Taken Comments Blood Pressure - - Pulse - - Temperature - - Respiratory Rate - - Oxygen Saturation - - Inhaled Oxygen Concentration - - Weight 62.1 kg (137 lb) 10/27/2024 2:15 PM EST Height 152.4 cm (5') 10/27/2024 2:15 PM EST Body Mass Index 26.76 10/27/2024 2:15 PM EST Plan of Treatment Health Maintenance Due Date Last Done Comments Breast Cancer Screening 1955 Cholesterol Screening (Lipid Panel) 07/23/2022 Colorectal Cancer Screening: Colonoscopy 07/23/2022 Depression Screening 07/23/2022 Falls Risk Assessment 07/23/2022 Hepatitis C Screening 07/23/2022 Medicare Annual Wellness Visit 07/23/2022 Osteoporosis Screening (Bone Density Screening) 07/23/2022 Social Influencers of Health Screening 07/23/2022 Hypertension/CHF/CAD Annual BMP Blood Test 10/27/2025 10/27/2024 DTaP,Tdap,and Td Vaccines (2 - Td or Tdap) 09/22/2026 09/22/2016 RSV Immunization Patients 60+ Years Old (1 - 1-dose 75+ series) 02/19/2032 Zoster Vaccines Completed 06/02/2022, 08/24, 05/31/2018, Additional history exists Pneumococcal Vaccine: 50+ Years Completed 04/21/2023 COVID-19 Vaccine Completed 05/18/2024, 04/2023, 07/30/2021, Additional history exists Influenza Vaccine Completed 05/18/2024, , 06/19/2021, Additional history exists HIB Vaccines Aged Out No longer eligi [...] to complete this topic RSV Immunization Patients Under 20 months Aged Out No longer eligible based on patient's age to complete this topic Varicella Vaccines Aged Out No longer eligible based on patient's age to complete this topic Procedures Procedure Name Priority Date/Time Associated Diagnosis Comments EXTERNAL ENDOSCOPY REPORT Routine 10/28/2024 9:52 AM EST XR ABDOMEN 1 VIEW Routine 10/27/2024 3:4 8 PM EST Other constipation CBC WITH AUTO DIFFERENTIAL Routine 10/27/2024 3:31 PM EST Abdominal distension Other fatigue VITAMIN B12 AND FOLATE Routine 10/27/2024 3:31 PM EST Abdominal distension Other fatigue FERRITIN Routine 10/27/2024 3:31 PM EST Abdominal distension Other fatigue Difficulty eating due to fatigue IRON AND TIBC Routine 10/27/2024 3:31 PM EST Abdominal distension Other fatigue Difficulty eating due to fatigue CBC AND DIFFERENTIAL Routine 10/27/2024 3:31 PM EST Abdominal distension Other fatigue COMPREHENSIVE METABOLIC PANEL Routine 10/27/2024 3:31 PM EST Abdominal distension Other fatigue from Last 3 Months Results * External Endoscopy (10/28/2024 9:52 AM EST) Anatomical Region Laterality Modality Endoscopy us Historical Provider GI~PROCEDURE ORDERABLES F inal Result * XR Abdomen 1 View (10/27/2024 3:48 PM EST) Anatomical Region Laterality Modality Body Radiographic Alida ging 10/28/2024 9:11 AM EST Impressions 10/28/2024 9:12 AM EST Nonspecific nonobstructive bowel gas pattern. Constipation has resolved since 05/17/2024. Code 85421 -------- FINAL REPORT -------- Dictated By: Anderson Pope Dictated Date: 10/28/2024 09:11 ET Assigned Physician: Anderson Pope Reviewed and Electronically Signed By: Anderson Pope Signed Date: 10/28/2024 09:12 ET Workstation ID: [id number] Transcribed By: Self Edit Transcribed Date: 10/28/2024 [...] gas pattern. Constipation has resolvedsince 05/17/2024. Code 70827 -------- FINAL REPORT -------- Dictated By: Anderson Pope Dictated Date: 10/28/2024 09:11 ET Assigned Physician: Anderson Pope Reviewed and Electronically Signed By: Anderson Pope Signed Date: 10/28/2024 09:12 ET Workstation ID: [id number] Transcribed By: Self Edit Transcribed Date: 10/28/2024 09:11 ET Carol ESTEBAN IMG XR PROCEDURES Final Result * (ABNORMAL) Vitamin B12 and folate (10/27/2024 3:31 PM EST) Vitamin B-12 944(H) 250 - 900 pcg/mL LAB CHEMISTRY METHOD 10/27/2024 5:25 PM EST [facility] Folate >20.0(H) 2.8 - 17.0 ng/ml LAB CHEMISTRY METHOD 10/27/2024 5:25 PM EST [facility] Blood Venous blood specimen / Unknown Venipuncture / Unknown 10/27/2024 3:31 PM EST 10/27/2024 4:20 PM EST us Carol ESTEBAN LAB BLOOD ORDERABLES Final Resu lt [facility] [address] [place] [address], [place] [phone] * CBC auto differential (10/27/2024 3:31 PM EST) [facility] WBC 8.5 4.8 - 10.8 K/mcL LAB HEMETOLOGY METHOD 10/27/2024 4:33 PM [facility] RBC 4.40 3.80 - 4.80 M/mcL LAB HEMETOLOGY METHOD 10/27/2024 4:33 PM [facility] Hemoglobin 13.4 11.5 - 16.0 g/dL LAB HEMETOLOGY METHOD 10/27/2024 4:33 PM [facility] Hematocrit 40.9 35.0 - 47.0 % LAB HEMETOLOGY METHOD 10/27/2024 4:33 PM [facility] MCV 93.8 79.0 - 98.0 FL LAB HEMETOLOGY METHOD 10/27/2024 4:33 PM [facility] MCH 30.7 27.0 - 32.0 pcg LAB HEMETOLOGY METHOD 10/27/2024 4:33 PM [facility] MCHC 32.8 32.0 - 37.0 g/dL LAB HEMETOLOGY METHOD 10/27/2024 4:33 PM [facility] RDW 12.9 11.0 - 15.0 % LAB HEMETOLOGY METHOD 10/27/2024 4:33 PM [facility] Platelets 268 130 - 400 K/mcL LAB HEMETOLOGY METHOD 10/27/2024 4:33 PM [facility] MPV 10.7 7.0 - 11.0 FL LAB HEMETOLOGY METHOD 10/27/2024 4:33 PM [facility] NRBC 0.0 <1.0 % LAB HEMETOLOGY METHOD 10/27/2024 4:33 PM [facility] NRBC Absolute 0.00 <0.10 K/mcL LAB HEMETOLOGY METHOD 10/27/2024 4:33 PM [facility] Neutrophils Relative 57.9 % LAB HEMETOLOGY METHOD 10/27/2024 4:33 PM [facility] Lymphocytes Relative 33.8 % LAB HEMETOLOGY METHOD 10/27/2024 4:33 PM [facility] Monocytes Relative 7.1 % LAB HEMETOLOGY METHOD 10/27/2024 4:33 PM [facility] Eosinophils Relative 0.6 % LAB HEMETOLOGY METHOD 10/27/2024 4:33 PM [facility] Basophils Relative 0.4 % LAB HEMETOLOGY METHOD 10/27/2024 4:33 PM [facility] Immature Granulocytes Relative 0.2 % LAB HEMETOLOGY METHOD 10/27/2024 4:33 PM [facility] Neutrophils Absolute 4.90 1.50 - 7.00 K/mcL LAB HEMETOLOGY METHOD 10/27/2024 4:33 PM [facility] Lymphocytes Absolute 2.86 1.00 - 5.00 K/mcL LAB HEMETOLOGY METHOD 10/27/2024 4:33 PM [facility] Monocytes Absolute 0.60 0.20 - 1.00 K/mcL LAB HEMETOLOGY METHOD 10/27/2024 4:33 PM [facility] Eosinophils Absolute 0.05 0.00 - 0.50 K/mcL LAB HEMETOLOGY METHOD 10/27/2024 4:33 PM [facility] Basophils Absolute 0.03 0.00 - 0.20 K/mcL LAB HEMETOLOGY METHOD 10/27/2024 4:33 PM [facility] Immature Granulocytes Absolute 0.02 0.00 - 0.03 K/mcL LAB HEMETOLOGY METHOD 10/27/2024 4:33 PM [facility] Blood Venous blood specimen / Unknown Venipuncture / Unknown 10/27/2024 3:31 PM EST 10/27/2024 4:21 PM EST us Carol ESTEBAN LAB BLOOD ORDERABLES Final Resu lt Performing Organization Address [facility]/ZIP Co de Phone Number [facility] [address] [place] [address], [place] [phone] * Iron and TIBC (10/27/2024 3:31 PM EST) Iron 70 40 - 150 mcg/dL LAB CHEMISTRY METHOD 10/27/2024 5:03 PM EST [facility] TIBC 345 250 - 450 mcg/dL LAB CHEMISTRY METHOD 10/27/2024 5:03 PM EST [facility] Iron Saturation 20 15 - 50 % LAB CHEMISTRY METHOD 10/27/2024 5:03 PM EST [facility] Blood Venous blood specimen / Unknown Venipuncture / Unknown 10/27/2024 3:31 PM EST 10/27/2024 4:20 PM EST Carol Nuñez [place] LAB BLOOD ORDERABLES Final Resu lt Performing Organization Address [facility]/ZIP Co de Phone Number [facility] [address] [place] [address], [place] [phone] * Ferritin (10/27/2024 3:31 PM EST) Ferritin 89 8 - 252 ng/mL LAB CHEMISTRY METHOD 10/27/2024 5:03 PM EST [facility] Blood Venous blood specimen / Unknown Venipuncture / Unknown 10/27/2024 3:31 PM EST 10/27/2024 4:20 PM EST us Carol Nuñez PA LAB BLOOD ORDERABLES Final Resu lt [facility] [address] [place] [address], [place] [phone] * Comprehensive metabolic panel (10/27/2024 3:31 PM EST) Sodium 137 133 - 145 mmol/L LAB CHEMISTRY METHOD 10/27/2024 5:03 PM [facility] Potassium 3.9 3.5 - 5.5 mmol/L LAB CHEMISTRY METHOD 10/27/2024 5:03 PM [facility] Chloride 103 96 - 110 mmol/L LAB CHEMISTRY METHOD 10/27/2024 5:03 PM [facility] CO2 26 21 - 32 mmol/L LAB CHEMISTRY METHOD 10/27/2024 5:03 PM [facility] Anion Gap 8 3 - 11 LAB CHEMISTRY METHOD 10/27/2024 5:03 PM [facility] Glucose 73 70 - 100 mg/dL LAB CHEMISTRY METHOD 10/27/2024 5:03 PM [facility] BUN 12 5 - 25 mg/dL LAB CHEMISTRY METHOD 10/27/2024 5:03 PM [facility] Creatinine 0.85 0.50 - 1.10 mg/dL LAB CHEMISTRY METHOD 10/27/2024 5:03 PM [facility] eGFR 75 >=60 mL/min/1. 73m2 LAB CHEMISTRY METHOD 10/27/2024 5:03 PM [facility] Comment:Calculation based on the??Chronic Kidney Disease Epidemiology Collaboration (CKD-EPI) equation refit??without adjustment for race. BUN/Creatinine Ratio 14.1 LAB CHEMISTRY METHOD 10/27/2024 5:03 PM [facility] Calcium 9.8 8.5 - 10.5 mg/dL LAB CHEMISTRY METHOD 10/27/2024 5:03 PM [facility] AST (SGOT) 20 10 - 42 unit/L LAB CHEMISTRY METHOD 10/27/2024 5:03 PM [facility] ALT (SGPT) 32 10 - 60 unit/L LAB CHEMISTRY METHOD 10/27/2024 5:03 PM [facility] Alkaline Phosphatase 71 42 - 121 unit/L LAB CHEMISTRY METHOD 10/27/2024 5:03 PM [facility] Total Protein 7.2 6.0 - 8.0 g/dL LAB CHEMISTRY METHOD 10/27/2024 5:03 PM [facility] Albumin 4.1 3.2 - 5.0 g/dL LAB CHEMISTRY METHOD 10/27/2024 5:03 PM [facility] Total Bilirubin 0.4 0.0 - 1.4 mg/dL LAB CHEMISTRY METHOD 10/27/2024 5:03 PM [facility] Blood Venous blood specimen / Unknown Venipuncture / Unknown 10/27/2024 3:31 PM EST 10/27/2024 4:20 PM EST us Carol ESTEBAN LAB BLOOD ORDERABLES Final Resu lt [facility] [address] [place] [address], from Last 3 Months Insurance [employer] - [place] MEDICARE ADVANTAGE Care Teams Home Economics Extension Worker Relationship Specialty Start Date End Date Kalina Palacios MD [address] [place] [phone] PCP - General Internal Medicine 10/27/24
--- OUTSIDE RECORDS SUMMARY | 2024-11-01 16:09 | XMS_ITS | Encounter Summary ---
Author Organization [facility] Address [address] [place] [address] Care Team Providers Care Inspector [employer] Name Role Phone Kalina Palacios MD Primary Care Provider Reason for Visit * Reason Comments Follow-up Stomach bloating Encounter Details Date Type Department Care Team (Late st Contact Info) Description 10/27/2024 2:40 PM EST Office Visit Gastroenterology - [address] [place] [id number] Carol Nuñez PA [address] [place] [address] Abdominal distension (Primary Dx); Other fatigue; Other constipation; Gastroesophageal reflux disease without esophagitis; Difficulty eating due to fatigue Social History Tobacco Use Types Packs/Day Years [...] on file documented as of this encounter Last Filed Vital Signs Vital Sign Reading Time Taken Comments Blood Pressure - - Pulse - - Temperature - - Respiratory Rate - - Oxygen Saturation - - Inhaled Oxygen Concentration - - Weight 62.1 kg (137 lb) 10/27/2024 2:15 PM EST Height 152.4 cm (5') 10/27/2024 2:15 PM EST Body Mass Index 26.76 10/27/2024 2:15 PM EST documented in this encounter Progress Notes * EULALIA Teran - 10/27/2024 2:40 PM ESTAssociated Problem(s): GERD (gastroesophageal reflux disease) Not a concern at today's visit. I [...] symptoms do not flare x 3 months. * EULALIA Teran - 10/27/2024 2:40 PM EST CHIEF COMPLAINT: Follow-up (Stomach bloating) HPI: Veronica Vicente is a 69 y.o. old female who was originally referred to us by Kalina Palacios MD now presents to the gastroenterology department today for a follow up of GERD and bloating Omeprazole 20mg daily, has taken for about 25 years. Patient concerned about long-term use of this medication. Using famotidine 20mg daily PRN for breakthrough symptoms. Called the office for GERD flare in Aug, recommended to start the pepcid at that time, however today patient does not remember this encounter and denies GERD troubles. Reports little to no appetite in last 2 weeks and increased abdominal distension. For last 4 days, reports severe nausea after eating. Denies emesis. Uses zofran as needed for this concern which helps. Nausea and abdominal distension are both chronic problems for this patient, she has been seen for this concern several times in last 1-3 years. Workup to include KUB in 04/2024 positive for moderate constipation, EGD in 02/2022 which was unremarkable apart from a small hiatal hernia and an abdominal ultrasound in 2021 Takes Linzess 72mcg daily for constipation. BM 3-5x/day. Denies hematochezia, abdominal pain, or weight loss. Positive for fatigue and tiredness. ROS: GENERAL: No malaise, significant weight loss or fever HEENT: No changes in hearing or vision, nose bleeds or swallowing problems NECK: No lumps, goiter, pain or significant neck swelling RESPIRATORY: No cough, wheezing or shortness of breath CARDIOVASCULAR: No chest pain, leg swelling or palpitations GI: see above MUSCULOSKELETAL: No joint pain or swelling, back pain, or muscle pain. SKIN: No lesions, rash or itching The remainder of the review of systems is reviewed and negative. PROBLEM LIST: Patient Active Problem List Diagnosis Dyslipidemia HTN (hypertension) GERD (gastroesophageal reflux disease) Irritable bowel syndrome with constipation Anxiety and depression Hypothyroid PAST SURGICAL HISTORY: Past Surgical History: Procedure Laterality Date COLONOSCOPY 04/23/2017 recall 10 yrs ESOPHAGOGASTRODUODENOSCOPY 03/13/2022 ESOPHAGOGASTRODUODENOSCOPY 04/23/2017 SOCIAL HISTORY: Social History Tobacco Use Smoking status: Every Day Types: Cigarettes Smokeless tobacco: Current Substance Use Topics Alcohol use: Yes Comment: occasional FAMILY HISTORY: Family History Problem Relation Name Age of Onset Colon cancer Neg Hx Colon polyps Neg Hx ACTIVE MEDICATIONS: Current Outpatient Medications Medication Sig Dispense Refill ALPRAZolam (XANAX) 0.5 mg tablet Take 1 tablet (0.5 mg total) by mouth 2 (two) times a day if needed for anxiety. Max Daily Amount: 1 mg cyanocobalamin (VITAMIN B-12) 1,000 mcg/mL injection INJECT 1 ML INTO THE SKIN EVERY 4 WEEKS escitalopram (LEXAPRO) 10 mg tablet 0.5 tablets (5 mg total). famotidine (PEPCID) 20 mg tablet TAKE 1 TABLET BY MOUTH DAILY NEEDED FOR FOR HEARTBURN levothyroxine (SYNTHROID, LEVOTHROID) 50 mcg tablet Take 1 tablet (50 mcg total) by mouth 1 (one) time each day. linaCLOtide (Linzess) 72 mcg capsule Take 1 capsule (72 mcg total) by mouth 1 (one) time each day before breakfast. 30 capsule 2 meclizine (ANTIVERT) 25 mg tablet take 1 tablet by mouth 3 times a day as needed for dizziness omeprazole (PriLOSEC) [address] capsule Take 1 capsule (20 mg total) by mouth 1 (one) time each day. ondansetron (ZOFRAN) 4 mg tablet Take 1 tablet (4 mg total) by mouth 2 (two) times a day. rosuvastatin (CRESTOR) 40 mg tablet Take 1 tablet (40 mg total) by mouth 1 (one) time each day. No current facility-administered medications for this visit. ALLERGIES: Allergies Allergen Reactions Codeine PHYSICAL EXAM: Visit Vitals Ht 1.524 m (60 ) Wt 62.1 kg (137 lb) BMI 26.76 kg/m?? Smoking Status Every Day BSA 1.59 m?? APPEARANCE: Alert and in no acute distress. Patient is tearful at several moments during exam. EYES: PERRLA, conjunctiva and sclera normal. MOUTH/THROAT: no erythema or exudates ABDOMEN: soft non tender, no ascites, guarding, or rebound, no organomegaly. EXTREMITIES: Extremities warm and well perfused SKIN: Skin color, texture, turgor normal. NEURO: Awake, alert and oriented, normal ROM LABS: Lab Results Component Value Date WBC 8.5 10/27/2024 HGB 13.4 10/27/2024 HCT 40.9 10/27/2024 MCV 93.8 10/27/2024 PLT 268 10/27/2024 Lab Results Component Value Date NA 137 10/27/2024 K 3.9 10/27/2024 CL 103 10/27/2024 CO2 26 10/27/2024 BUN 12 10/27/2024 CREATININE 0.85 10/27/2024 CALCIUM 9.8 10/27/2024 PROT 7.2 10/27/2024 BILITOT 0.4 10/27/2024 ALKPHOS 71 10/27/2024 ALT 32 10/27/2024 AST 20 10/27/2024 GLUCOSE 73 10/27/2024 DR MURRAY HARTMANN AND ERECT [facility] Diagnostic Imaging Department [address] [place] [address] Patient: VERONICA VICENTE/Age/Sex: 1955 - 69 - F Unit#: [id number] Location/Status: SPDIGEN/REG CLI Mnemonic[facility] Ordering Physician: BEVERLY IBARRA MD Abdomen Flat and Erect - 05/17/24 - 933 Report Status:Signed Abdomen Flat and Erect INDICATION: Distention TECHNIQUE: Abdomen Flat and Erect COMPARISON: 02/13/2022 FINDINGS/IMPRESSION: Nonobstructive bowel gas pattern. No free intraperitoneal air. Moderate stool throughout the colon. No renal or ureteral calculi detected. Small pelvic phleboliths. Lung bases are clear. Levoconvex lumbar curvature. Lower lumbar facet arthritis. Dictating Physician: ARTEM TURCIOS MD Electronically Signed by: ARTEM TURCIOS MD Dic Date/Time: 05/19/24853 Sign date/Time: 05/19/24854 Assessment/Plan Assessment & Plan Abdominal distension Suspect IBS-C and dietary/lifestyle is contributing. Will re-order KUB for comparison since starting Linzess daily. Ordering labwork. Further workup pending KUB results, consider SIBO testing, celiac testing, or CT scan. Orders: Comprehensive metabolic panel; Future CBC and differential; Future Iron and TIBC; Future Ferritin; Future Vitamin B12 and folate; Future Other fatigue Ordering labwork to further evaluate. Orders: Comprehensive metabolic panel; Future CBC and differential; Future Iron and TIBC; Future Ferritin; Future Vitamin B12 and folate; Future Other constipation See above Orders: XR Abdomen 1 View; Future Gastroesophageal reflux disease without esophagitis Not a concern at today's visit. I [...] symptoms do not flare x 3 months. Follow up if symptoms worsen or fail to improve. Gastroenterology and Hepatology Practice [facility] [email or web address] [phone] [place] [address]. [address] [place] [address] EULALIA Teran documented in this encounter Plan of Treatment Not on file documented as of this encounter Results * XR Abdomen 1 View (10/27/2024 3:48 PM EST) Anatomical Region Laterality Modality Body Radiographic Alida ging 10/28/2024 9:11 AM EST Impressions 10/28/2024 9:12 AM EST Nonspecific nonobstructive bowel gas pattern. Constipation has resolved since 05/17/2024. Code 99740 -------- FINAL REPORT -------- Dictated By: Anderson Pope Dictated Date: 10/28/2024 09:11 ET Assigned Physician: Anderson Pope Reviewed and Electronically Signed By: Anderson Pope Signed Date: 10/28/2024 09:12 ET Workstation ID: [id number] Transcribed By: Self Edit Transcribed Date: 10/28/2024 [...] gas pattern. Constipation has resolvedsince 05/17/2024. Code 01295 -------- FINAL REPORT -------- Dictated By: Anderson Pope Dictated Date: 10/28/2024 09:11 ET Assigned Physician: Anderson Pope Reviewed and Electronically Signed By: Anderson Pope Signed Date: 10/28/2024 09:12 ET Workstation ID: [id number] Transcribed By: Self Edit Transcribed Date: 10/28/2024 09:11 ET us Carol ESTEBAN IMG XR PROCEDURES Final Result * (ABNORMAL) Vitamin B12 and folate (10/27/2024 3:31 PM EST) Pathologist [facility] Vitamin B-12 944(H) 250 - 900 pcg/mL LAB CHEMISTRY METHOD 10/27/2024 5:25 PM EST [facility] Folate >20.0(H) 2.8 - 17.0 ng/ml LAB CHEMISTRY METHOD 10/27/2024 5:25 PM EST [facility] Blood Venous blood specimen / Unknown Venipuncture / Unknown 10/27/2024 3:31 PM EST 10/27/2024 4:20 PM EST us Carol ESTEBAN LAB BLOOD ORDERABLES Final Resu lt [facility] [address] [place] [address], * Ferritin (10/27/2024 3:31 PM EST) [facility] Ferritin 89 8 - 252 ng/mL LAB CHEMISTRY METHOD 10/27/2024 5:03 PM EST [facility] Blood Venous blood specimen / Unknown Venipuncture / Unknown 10/27/2024 3:31 PM EST 10/27/2024 4:20 PM EST Carol ESTEBAN LAB BLOOD ORDERABLES Final Resu lt Performing Organization Address City/[facility]/ZIP Co de Phone Number [facility] [address] [place] [address], [place] [phone] * Iron and TIBC (10/27/2024 3:31 PM EST) Iron 70 40 - 150 mcg/dL LAB CHEMISTRY METHOD 10/27/2024 5:03 PM EST [facility] TIBC 345 250 - 450 mcg/dL LAB CHEMISTRY METHOD 10/27/2024 5:03 PM EST [facility] Iron Saturation 20 15 - 50 % LAB CHEMISTRY METHOD 10/27/2024 5:03 PM EST [facility] Blood Venous blood specimen / Unknown Venipuncture / Unknown 10/27/2024 3:31 PM EST 10/27/2024 4:20 PM EST Carol ESTEBAN LAB BLOOD ORDERABLES Final Resu lt Performing Organization Address City/[facility]/ZIP Co de Phone Number [facility] [address] [place] [address], [place] [phone] * Comprehensive metabolic panel (10/27/2024 3:31 PM EST) Sodium 137 133 - 145 mmol/L LAB CHEMISTRY METHOD 10/27/2024 5:03 PM EST [facility] Potassium 3.9 3.5 - 5.5 mmol/L LAB CHEMISTRY METHOD 10/27/2024 5:03 PM EST [facility] Chloride 103 96 - 110 mmol/L LAB CHEMISTRY METHOD 10/27/2024 5:03 PM EST [facility] CO2 26 21 - 32 mmol/L LAB CHEMISTRY METHOD 10/27/2024 5:03 PM EST [facility] Anion Gap 8 3 - 11 LAB CHEMISTRY METHOD 10/27/2024 5:03 PM [facility] Glucose 73 70 - 100 mg/dL LAB CHEMISTRY METHOD 10/27/2024 5:03 PM [facility] BUN 12 5 - 25 mg/dL LAB CHEMISTRY METHOD 10/27/2024 5:03 PM [facility] Creatinine 0.85 0.50 - 1.10 mg/dL LAB CHEMISTRY METHOD 10/27/2024 5:03 PM [facility] eGFR 75 >=60 mL/min/1. 73m2 LAB CHEMISTRY METHOD 10/27/2024 5:03 PM [facility] Comment:Calculation based on the??Chronic Kidney Disease Epidemiology Collaboration (CKD-EPI) equation refit??without adjustment for race. BUN/Creatinine Ratio 14.1 LAB CHEMISTRY METHOD 10/27/2024 5:03 PM [facility] Calcium 9.8 8.5 - 10.5 mg/dL LAB CHEMISTRY METHOD 10/27/2024 5:03 PM [facility] AST (SGOT) 20 10 - 42 unit/L LAB CHEMISTRY METHOD 10/27/2024 5:03 PM [facility] ALT (SGPT) 32 10 - 60 unit/L LAB CHEMISTRY METHOD 10/27/2024 5:03 PM [facility] Alkaline Phosphatase 71 42 - 121 unit/L LAB CHEMISTRY METHOD 10/27/2024 5:03 PM [facility] Total Protein 7.2 6.0 - 8.0 g/dL LAB CHEMISTRY METHOD 10/27/2024 5:03 PM [facility] Albumin 4.1 3.2 - 5.0 g/dL LAB CHEMISTRY METHOD 10/27/2024 5:03 PM [facility] Total Bilirubin 0.4 0.0 - 1.4 mg/dL LAB CHEMISTRY METHOD 10/27/2024 5:03 PM [facility] Blood Venous blood specimen / Unknown Venipuncture / Unknown 10/27/2024 3:31 PM EST 10/27/2024 4:20 PM EST Carol ESTEBAN LAB BLOOD ORDERABLES Final Resu lt [facility] [address] [place] [address], documented in this encounter Visit Diagnoses Diagnosis Abdominal distension- Primary Flatulence, eructation, and gas pain Other fatigue Other constipation Gastroesophageal reflux disease without esophagitis Esophageal reflux Difficulty eating due to fatigue Other constipation documented in this encounter Historical Medications * This list may reflect changes made after this encounter. ALPRAZolam (XANAX) 0.5 mg tablet Take 1 tablet (0.5 mg total) by mouth 2 (two) times a day if needed for anxiety. Max Daily Amount: 1 mg 10/12/2024 meclizine (ANTIVERT) 25 mg tablet take 1 tablet by mouth 3 times a day as needed for dizziness 11/13/2023 ondansetron (ZOFRAN) 4 mg tablet Take 1 tablet (4 mg total) by mouth 2 (two) times a day. famotidine (PEPCID) 20 mg tablet TAKE 1 TABLET BY MOUTH DAILY NEEDED FOR FOR HEARTBURN 05/10/2024 escitalopram (LEXAPRO) 10 mg tablet 0.5 tablets (5 mg total). 07/27/2024 rosuvastatin (CRESTOR) 40 mg tablet Take 1 tablet (40 mg total) by mouth 1 (one) time each day. cyanocobalamin (VITAMIN B-12) 1,000 mcg/mL injection INJECT 1 ML INTO THE SKIN EVERY 4 WEEKS 10/24/2024 levothyroxine (SYNTHROID, LEVOTHROID) 50 mcg tablet Take 1 tablet (50 mcg total) by mouth 1 (one) time each day. 10/20/2024 omeprazole (PriLOSEC) [address] capsule Take 1 capsule (20 mg total) by mouth 1 (one) time each day. 09/19/2024 added in this encounter Care Teams Inspector [employer] Relationship Specialty Start Date End Date Kalina Palacios MD [address] [place] [phone] PCP - General Internal Medicine 10/27/24 documented as of this encounter
--- OUTSIDE RECORDS SUMMARY | 2024-11-01 16:09 | XMS_ITS | Encounter Summary ---
Author Organization [facility] Address [address] [place] [address] Care Team Providers Care Seating Captain Name Role Phone Kalina Palacios MD Primary Care Provider Encounter Details Date Type Department Care Team (Late st Contact Info) Description 10/28/2024 Telephone Gastroenterology - [address] [place] [phone] Carol Nuñez PA [address] [place] [address] Social History Tobacco Use Types Packs/Day Years [...] as of this encounter Progress Notes * EULALIA Teran - 10/28/2024 4:47 PM EST Left voicemail for patient regarding KUB results. Constipation improved however many gas filled loops of small bowel seen. Likely gas that is causing abdominal distention and bloating. I know we discussed gasx in office, I would love an update on effectiveness. Call back to discuss these results further. Consider SIBO and celiac testing documented in this encounter Plan of Treatment Not on file documented as of this encounter Visit Diagnoses Not on filedocumented in this encounter Care Teams Seating Captain Relationship Specialty Start Date End Date Kalina Palacios MD [address] [place] [address] PCP - General Internal Medicine 10/27/24 documented as of this encounter
--- OUTSIDE RECORDS SUMMARY | 2024-11-01 16:09 | XMS_ITS | Encounter Summary ---
Author Organization [facility] Address [address] [place] [address] Care Team Providers Care Medical Appointment Clerk Name Role Phone Kalina Palacios MD Primary Care Provider Encounter Details Date Type Department Care Team (Late st Contact Info) Description 10/27/2024 3:00 PM EST Lab Draw Station - [address] [phone] Abdominal distension; Other fatigue; Difficulty eating due to fatigue Social History [...] Progress Notes * EULALIA Teran - 10/27/2024 3:00 PM EST Labwork looks good, no signs of anemia. Vit b12 high, follow PCP recommendations for supplementation documented in this encounter Plan of Treatment Not on file documented as of this encounter Procedures Procedure Name Priority Date/Time Associated Diagnosis Comments VITAMIN B12 AND FOLATE Routine 3:31 PM EST Abdominal distension Other fatigue CBC WITH AUTO DIFFERENTIAL Routine 10/27/2024 3:31 PM EST Abdominal distension Other fatigue IRON AND TIBC Routine 10/27/2024 3:31 PM EST Abdominal distension Other fatigue Difficulty eating due to fatigue CBC AND DIFFERENTIAL Routine 10/27/2024 3:31 PM EST Abdominal distension Other fatigue FERRITIN Routine 10/27/2024 3:31 PM EST Abdominal distension Other fatigue Difficulty eating due to fatigue COMPREHENSIVE METABOLIC PANEL Routine 10/27/2024 3:31 PM EST Abdominal distension Other fatigue documented in this encounter Results * CBC auto differential (10/27/2024 3:31 PM EST) WBC 8.5 4.8 - 10.8 K/mcL LAB HEMETOLOGY METHOD 10/27/2024 4:33 PM [facility] RBC 4.40 3.80 - 4.80 M/mcL LAB HEMETOLOGY METHOD 10/27/2024 4:33 PM [facility] Hemoglobin 13.4 11.5 - 16.0 g/dL LAB HEMETOLOGY METHOD 10/27/2024 4:33 PM [facility] Hematocrit 40.9 35.0 - 47.0 % LAB HEMETOLOGY METHOD 10/27/2024 4:33 PM [facility] MCV 93.8 79.0 - 98.0 FL LAB HEMETOLOGY METHOD 10/27/2024 4:33 PM [facility] MCH 30.7 27.0 - 32.0 pcg LAB HEMETOLOGY METHOD 10/27/2024 4:33 PM [facility] MCHC 32.8 32.0 - 37.0 g/dL LAB HEMETOLOGY METHOD 10/27/2024 4:33 PM [facility] RDW 12.9 11.0 - 15.0 % LAB HEMETOLOGY METHOD 10/27/2024 4:33 PM [facility] Platelets 268 130 - 400 K/mcL LAB HEMETOLOGY METHOD 10/27/2024 4:33 PM [facility] MPV 10.7 7.0 - 11.0 FL LAB HEMETOLOGY METHOD 10/27/2024 4:33 PM [facility] NRBC 0.0 <1.0 % LAB HEMETOLOGY METHOD 10/27/2024 4:33 PM [facility] NRBC Absolute 0.00 <0.10 K/mcL LAB HEMETOLOGY METHOD 10/27/2024 4:33 PM [facility] Neutrophils Relative 57.9 % LAB HEMETOLOGY METHOD 10/27/2024 4:33 PM [facility] Lymphocytes Relative 33.8 % LAB HEMETOLOGY METHOD 10/27/2024 4:33 PM [facility] Monocytes Relative 7.1 % LAB HEMETOLOGY METHOD 10/27/2024 4:33 PM [facility] Eosinophils Relative 0.6 % LAB HEMETOLOGY METHOD 10/27/2024 4:33 PM [facility] Basophils Relative 0.4 % LAB HEMETOLOGY METHOD 10/27/2024 4:33 PM [facility] Immature Granulocytes Relative 0.2 % LAB HEMETOLOGY METHOD 10/27/2024 4:33 PM [facility] Neutrophils Absolute 4.90 1.50 - 7.00 K/mcL LAB HEMETOLOGY METHOD 10/27/2024 4:33 PM [facility] Lymphocytes Absolute 2.86 1.00 - 5.00 K/mcL LAB HEMETOLOGY METHOD 10/27/2024 4:33 PM [facility] Monocytes Absolute 0.60 0.20 - 1.00 K/mcL LAB HEMETOLOGY METHOD 10/27/2024 4:33 PM EST [facility] Eosinophils Absolute 0.05 0.00 - 0.50 K/[facility] LAB HEMETOLOGY METHOD 10/27/2024 4:33 PM EST [facility] Basophils Absolute 0.03 0.00 - 0.20 K/[facility] LAB HEMETOLOGY METHOD 10/27/2024 4:33 PM EST [facility] Immature Granulocytes Absolute 0.02 0.00 - 0.03 K/[facility] LAB HEMETOLOGY METHOD 10/27/2024 4:33 PM EST [facility] Blood Venous blood specimen / Unknown Venipuncture / Unknown 10/27/2024 3:31 PM EST 10/27/2024 4:21 PM EST Carol [facility] LAB BLOOD ORDERABLES Final Resu lt Performing Organization Address [facility]/ZIP Co de Phone Number [facility] [address] [place] [address], [place] [phone] * (ABNORMAL) Vitamin B12 and folate (10/27/2024 3:31 PM EST) Pathologist [facility] Vitamin B-12 944(H) 250 - 900 pcg/mL LAB CHEMISTRY METHOD 10/27/2024 5:25 PM EST [facility] Folate >20.0(H) 2.8 - 17.0 ng/ml LAB CHEMISTRY METHOD 10/27/2024 5:25 PM EST [facility] Blood Venous blood specimen / Unknown Venipuncture / Unknown 10/27/2024 3:31 PM EST 10/27/2024 4:20 PM EST us Carol [facility] LAB BLOOD ORDERABLES Final Resu lt Performing Organization Address City/[facility]/ZIP Co de Phone Number [facility] [address] [place] [address], [place] [phone] * Ferritin (10/27/2024 3:31 PM EST) Pathologist [facility] Ferritin 89 8 - 252 ng/mL LAB CHEMISTRY METHOD 10/27/2024 5:03 PM EST [facility] Blood Venous blood specimen / Unknown Venipuncture / Unknown 10/27/2024 3:31 PM EST 10/27/2024 4:20 PM EST [facility] Nu[facility] MD LAB BLOOD ORDERABLES Final Resu lt [facility] [address] [place] [address], [place] [phone] * Iron and TIBC (10/27/2024 3:31 PM EST) Pathologist [facility] Iron 70 40 - 150 mcg/dL LAB CHEMISTRY METHOD 10/27/2024 5:03 PM EST [facility] TIBC 345 250 - 450 mcg/dL LAB CHEMISTRY METHOD 10/27/2024 5:03 PM EST [facility] Iron Saturation 20 15 - 50 % LAB CHEMISTRY METHOD 10/27/2024 5:03 PM EST [facility] Blood Venous blood specimen / Unknown Venipuncture / Unknown 10/27/2024 3:31 PM EST 10/27/2024 4:20 PM EST Carol Nuñez MD LAB BLOOD ORDERABLES Final Resu lt [facility] [address] [place] [address], [place] [phone] * Comprehensive metabolic panel (10/27/2024 3:31 PM EST) Pathologist [facility] Sodium 137 133 - 145 mmol/L LAB CHEMISTRY METHOD 10/27/2024 5:03 PM EST [facility] Potassium 3.9 3.5 - 5.5 mmol/L LAB CHEMISTRY METHOD 10/27/2024 5:03 PM EST [facility] Chloride 103 96 - 110 mmol/L LAB CHEMISTRY METHOD 10/27/2024 5:03 PM [facility] CO2 26 21 - 32 mmol/L LAB CHEMISTRY METHOD 10/27/2024 5:03 PM [facility] Anion Gap 8 3 - 11 LAB CHEMISTRY METHOD 10/27/2024 5:03 PM [facility] Glucose 73 70 - 100 mg/dL LAB CHEMISTRY METHOD 10/27/2024 5:03 PM [facility] BUN 12 5 - 25 mg/dL LAB CHEMISTRY METHOD 10/27/2024 5:03 PM [facility] Creatinine 0.85 0.50 - 1.10 mg/dL LAB CHEMISTRY METHOD 10/27/2024 5:03 PM [facility] eGFR 75 >=60 mL/min/1. 73m2 LAB CHEMISTRY METHOD 10/27/2024 5:03 PM [facility] Comment:Calculation based on the??Chronic Kidney Disease Epidemiology Collaboration (CKD-EPI) equation refit??without adjustment for race. BUN/Creatinine Ratio 14.1 LAB CHEMISTRY METHOD 10/27/2024 5:03 PM [facility] Calcium 9.8 8.5 - 10.5 mg/dL LAB CHEMISTRY METHOD 10/27/2024 5:03 PM [facility] AST (SGOT) 20 10 - 42 unit/L LAB CHEMISTRY METHOD 10/27/2024 5:03 PM [facility] ALT (SGPT) 32 10 - 60 unit/L LAB CHEMISTRY METHOD 10/27/2024 5:03 PM [facility] Alkaline Phosphatase 71 42 - 121 unit/L LAB CHEMISTRY METHOD 10/27/2024 5:03 PM [facility] Total Protein 7.2 6.0 - 8.0 g/dL LAB CHEMISTRY METHOD 10/27/2024 5:03 PM [facility] Albumin 4.1 3.2 - 5.0 g/dL LAB CHEMISTRY METHOD 10/27/2024 5:03 PM EST [facility] Total Bilirubin 0.4 0.0 - 1.4 mg/dL LAB CHEMISTRY METHOD 10/27/2024 5:03 PM EST [facility] Blood Venous blood specimen / Unknown Venipuncture / Unknown 10/27/2024 3:31 PM EST 10/27/2024 4:20 PM EST us Carol [facility] LAB BLOOD ORDERABLES Final Resu lt [facility] [address] [place] [address], documented in this encounter Visit Diagnoses Diagnosis Abdominal distension Flatulence, eructation, and gas pain Other fatigue Difficulty eating due to fatigue documented in this encounter Care Teams Medical Appointment Clerk Relationship Specialty Start Date End Date Kalina Palacios MD [address] [place] [phone] PCP - General Internal Medicine 10/27/24 documented as of this encounter
--- OUTSIDE RECORDS SUMMARY | 2024-11-01 16:09 | XMS_ITS | Encounter Summary ---
Author Organization [facility] Address [address] [place] [address] Care Team Providers Care Obstetrics And Gynecology Professor Name Role Phone Kalina Palacios MD Primary Care Provider [phone] Encounter Details Date Type Department Care Team (Late st Contact Info) Description 10/28/2024 Telephone Gastroenterology - [address] [facility] [address] [place] [address] Nohemi Orozco MA Social History [...] Progress Notes * Nohemi Orozco MA - 10/28/2024 11:20 AM EST Spoke to patient regarding lab results and follow pcp recommendations for supplements. Patient feels b12 was high because she had a b12 injection that day. * Nohemi Orozco MA - 10/28/2024 11:19 AM EST ----- Message from EULALIA Curiel sent at 10/28/2024 7:58 AM EST ----- Labwork looks good, no signs of anemia. Vit b12 high, follow PCP recommendations for supplementation documented in this encounter Plan of Treatment Not on file documented as of this encounter Visit Diagnoses Not on filedocumented in this encounter Care Teams Obstetrics And Gynecology Professor Relationship Specialty Start Date End Date Kalina Palacios MD [address] [place] [address] PCP - General Internal Medicine 10/27/24 documented as of this encounter
--- OUTSIDE RECORDS SUMMARY | 2024-11-01 16:09 | XMS_ITS | Encounter Summary ---
Author Organization [facility] Address [address] [place] [address] Care Team Providers Care School Psychologist Assistant Name Role Phone Unavailable Primary Care Provider Unavailabl e Encounter Details Date Type Department Care Team (Late st Contact Info) Description 10/10/2024 Telephone Gastroenterology - [address] [facility] [address] [place] [phone] Bernie Perez MD 299 [facility] [address] [place] [address] Social History Tobacco Use Types Packs/Day Years [...]
--- OUTSIDE RECORDS SUMMARY | 2024-11-01 16:09 | XMS_ITS | Patient Health Record ---
Author Organization [facility] Address [address] [facility] [address] [place] [address] Care Team Providers Care Clinical Documentation Spec Name Role Phone Yvonne Phillips Unavailable [phone] Reason For Referral No Information Medications Medication SIG (Take, Route, Fr equency, Duration) Notes Start Date End Date Status Vitamin E 200UNITS 1 ORAL daily for - [facility] 12/07/2012 Active Vitamin D3 1000 IU ORAL daily for - [facility] 12/07/2012 Active Fish Oil 1200MG 1 ORAL daily for [facility] 12/07/2012 Active Calcium 1 ORAL daily for -3 [facility] 12/07/2012 Active PriLOSEC OTC 20MG 1 ORAL daily for - [facility] 12/07/2012 Active Lipitor 10MG 1 ORAL daily for - [facility] 12/07/2012 Active Vitamin B12 1 ORAL daily for -3 [facility] 12/07/2012 Active Synthroid UNKNOWN 1 ORAL daily for - [facility] 12/07/2012 Active Vitamin B6 1 ORAL daily for - [facility] 12/07/2012 Active Problems Problem Type SNOMED Code ICD Code Onset Dates Problem Status W/U Status Risk Notes Problem Hypothyroidism (37721298) Unspecified hypothyroidism (244.9) Active confirmed Major Problem Hyperlipidemia (88164980) Other and unspecified hyperlipidemia (272.4) Active confirmed Major Problem Anxiety state (548693506) Anxiety state, unspecified (300.00) Active confirmed Major Problem Asthma (disorder) (756965533) Asthma, unspecified, unspecified status (493.90) Active confirmed Major Problem Esophageal reflux (823971042) Esophageal reflux (530.81) Active confirmed Major Problem Gynecological examination normal (405502078655730) Routine gynecological examination (V72.31) Active confirmed Major Problem Screening for malignant neoplasm of colon (345444843) Special screening for malignant neoplasms, colon (V76.51) Active confirmed Major Plan Of Treatment No Information Insurance Providers Payer Name Payer Address Payer Phone Subscriber Number Group Number Insured Name Patient Relationship to Insured Coverage Start Date Coverage End Date [facility] [address] [place] [address] [id number] KARLA VICENTE Self - patient is the insured
[2024-11-01 17:42] LABS: Free T4 (Free Thyroxine) 1.18 ng/dL (0.71-1.85); Thyroid Stimulating Hormone 1.48 uIU/mL (0.32-4.0); Vitamin D 25-OH Total 100.8 ng/mL (>30)
== END 2024-11-01 13:20 | disposition home or self-care (01) ==
LOC: HO.HMGCLDS 13:19
PROVIDERS: PCP Internal Medicine; Visit Provider Internal Medicine
DX: M81.0 Age-related osteoporosis without current pathological fracture (principal); E53.8 Deficiency of other specified B group vitamins; E03.9 Hypothyroidism, unspecified
CPT/HCPCS: 36415; 82306; 84439; 84443

== ENCOUNTER 2024-11-24 10:13 | Outpatient (AMB) | payer MEDICARE, SELFPAY ==
--- NOTE | 2024-11-24 10:36 | AM.OFFVISNUR ---
Intake Visit Reasons: B-12 shot Allergies Codeine Sulfate Adverse Reaction (Unknown, Uncoded 09/13/24 10:55) nausea Nursing Note Pt ambulated (I) gait steady to the room. Vitamin B12 administered to right deltoid. Pt tolerated well. Office Meds cyanocobalamin (vitamin B-12) 1,000 mcg/mL injection solution Performing Provider: Kalina Palacios MD [place] [facility] [place] [facility] Administered by: Elana Colon on 11/24/24 10:37 Dose Route Admin Location Dispensed Lot Number Expiration Date [facility] [employer] Operations Superintendent 1,000 mcg IM right deltoid 1 mL [id number] 01/10/26 60195-346-05 [employer] Assessment & Plan Assessment & Plan Orders: Orders AMB Vitamin B12 Injection Patient Supplied Today E53.8 - Deficiency of other specified B group vitamins Medications: New cyanocobalamin (vitamin B-12) 1,000 mcg IM ONCE 1 mL 0RF E53.8 - Deficiency of other specified B group vitamins Coding
--- OUTSIDE RECORDS SUMMARY | 2024-11-24 11:05 | XMS_ITS | Clinical Summary ---
Author Organization [facility] [address] [facility] Address [address] [place] [address] Phone Care Team Providers Care Forest Fire Fighters Dispatcher Name Role Phone Kalina Palacios MD Primary Care Provider Allergies Active Allergy Reactions Criticality Noted Date Comments Codeine 10/27/2024 Medications omeprazole (PriLOSEC) [address] capsule Take 1 capsule (20 mg total) by mouth 1 (one) time each day. 09/19/19 25 Active levothyroxine (SYNTHROID, LEVOTHROID) 50 mcg tablet Take 1 tablet (50 mcg total) by mouth 1 (one) time each day. 10/20/19 25 Active cyanocobalamin (VITAMIN B-12) 1,000 mcg/mL injection INJECT 1 ML INTO THE SKIN EVERY 4 WEEKS 10/25/19 25 Active rosuvastatin (CRESTOR) 40 mg tablet Take 1 tablet (40 mg total) by mouth 1 (one) time each day. Active escitalopram (LEXAPRO) 10 mg tablet 0.5 tablets (5 mg total). 07/27/20 24 Active famotidine (PEPCID) 20 mg tablet TAKE 1 TABLET BY MOUTH DAILY NEEDED FOR FOR HEARTBURN 05/10/20 24 Active ondansetron (ZOFRAN) 4 mg tablet Take 1 tablet (4 mg total) by mouth 2 (two) times a day. Active meclizine (ANTIVERT) 25 mg tablet take 1 tablet by mouth 3 times a day as needed for dizziness 11/13/19 24 Active ALPRAZolam (XANAX) 0.5 mg tablet Take 1 tablet (0.5 mg total) by mouth 2 (two) times a day if needed for anxiety. Max Daily Amount: 1 mg 10/12/19 25 Active Linzess 72 mcg capsuleIndicatio ns:Constipation, unspecified constipation type TAKE 1 CAPSULE (72 MCG TOTAL) BY MOUTH DAILY BEFORE BREAKFAST 30 capsule 5 11/08/19 25 Active linaCLOtide (Linzess) 72 mcg capsule Take 1 capsule (72 mcg total) by mouth 1 (one) time each day before breakfast. 30 capsule 2 06/28/20 24 025 Discontinued Active Problems Problem Noted Date Diagnosed Date Dyslipidemia 10/27/2024 HTN (hypertension) 10/27/2024 GERD (gastroesophageal reflux disease) Assessment & Plan (10/27/2024 5:29 PM EST): [...] Encounters Date Type Department Care Team Description 11/02/2024 Telephone Gastroenterology - [address] [facility] [address] [phone] Bernie Perez MD 10/31/2024 Telephone Gastroenterology - [address] [phone] Nohemi Orozco [place] 10/28/2024 Telephone Gastroenterology - [address] [phone] Carol Nuñez PA 10/28/2024 Telephone Gastroenterology - [address] [phone] Nohemi Orozco [place] 10/27/2024 3:36 PM EST - 10/27/2024 11:59 PM EST Hospital Encounter [facility] Xray [address] [place] [phone] Other constipation Discharge Disposition: Home or Self Care 10/27/2024 3:00 PM EST Lab Draw Station - [address] [phone] Abdominal distension; Other fatigue; Difficulty eating due to fatigue 10/27/2024 2:40 PM EST Office Visit Gastroenterology - [address] [place] [phone] Carol Nuñez PA Abdominal distension (Primary Dx); Other fatigue; Other constipation; Gastroesophageal reflux disease without esophagitis; Difficulty eating due to fatigue 10/10/2024 Telephone Gastroenterology - [address] [place] [phone] Bernie Perez MD 09/15/2024 Telephone Gastroenterology - [address] [place] [phone] Bernie Perez MD from Last 3 Months [...] Td or Tdap) 09/22/2026 09/22/2016 RSV Immunization Adult Patients (1 - 1-dose 75+ series) 02/19/2032 Zoster [...] pattern. Constipation has resolved since 05/17/2024. Code 07532 -------- FINAL REPORT -------- Dictated By: Anderson Pope Dictated Date: 10/28/2024 09:11 ET Assigned Physician: Anderson Pope Reviewed and Electronically Signed By: Anderson Pope Signed Date: 10/28/2024 09:12 ET Workstation ID: [id number] Transcribed By: Self Edit Transcribed Date: 10/28/2024 [...] gas pattern. Constipation has resolvedsince 05/17/2024. Code 84287 -------- FINAL REPORT -------- Dictated By: Anderson Pope Dictated Date: 10/28/2024 09:11 ET Assigned Physician: Anderson Pope Reviewed and Electronically Signed By: Anderson Pope Signed Date: 10/28/2024 09:12 ET Workstation ID: [id number] Transcribed By: Self Edit Transcribed Date: 10/28/2024 09:11 ET Carol ESTEBAN IMG XR PROCEDURES Final Result * (ABNORMAL) Vitamin B12 and folate (10/27/2024 3:31 PM EST) Vitamin B-12 944(H) 250 - 900 pcg/mL LAB CHEMISTRY METHOD 10/27/2024 5:25 PM EST [facility] Folate >20.0(H) 2.8 - 17.0 ng/ml LAB CHEMISTRY METHOD 10/27/2024 5:25 PM EST [facility] Blood Venous blood specimen / Unknown Venipuncture / Unknown 10/27/2024 3:31 PM EST 10/27/2024 4:20 PM EST us Carol ESTEBAN LAB BLOOD ORDERABLES Final Resu lt [facility] [address] [place] [address], [place] [phone] * CBC auto differential (10/27/2024 3:31 PM EST) Pathologist [facility] WBC 8.5 4.8 - 10.8 K/mcL LAB HEMETOLOGY METHOD 10/27/2024 4:33 PM EST [facility] RBC 4.40 3.80 - 4.80 M/mcL LAB HEMETOLOGY METHOD 10/27/2024 4:33 PM [facility] Hemoglobin 13.4 11.5 - 16.0 g/dL LAB HEMETOLOGY METHOD 10/27/2024 4:33 PM [facility] Hematocrit 40.9 35.0 - 47.0 % LAB HEMETOLOGY METHOD 10/27/2024 4:33 PM [facility] MCV 93.8 79.0 - 98.0 FL LAB HEMETOLOGY METHOD 10/27/2024 4:33 PM [facility] MCH 30.7 27.0 - 32.0 pcg LAB HEMETOLOGY METHOD 10/27/2024 4:33 PM [facility] MCHC 32.8 32.0 - 37.0 g/dL LAB HEMETOLOGY METHOD 10/27/2024 4:33 PM [facility] RDW 12.9 11.0 - 15.0 % LAB HEMETOLOGY METHOD 10/27/2024 4:33 PM [facility] Platelets 268 130 - 400 K/mcL LAB HEMETOLOGY METHOD 10/27/2024 4:33 PM [facility] MPV 10.7 7.0 - 11.0 FL LAB HEMETOLOGY METHOD 10/27/2024 4:33 PM [facility] NRBC 0.0 <1.0 % LAB HEMETOLOGY METHOD 10/27/2024 4:33 PM [facility] NRBC Absolute 0.00 <0.10 K/mcL LAB HEMETOLOGY METHOD 10/27/2024 4:33 PM [facility] Neutrophils Relative 57.9 % LAB HEMETOLOGY METHOD 10/27/2024 4:33 PM [facility] Lymphocytes Relative 33.8 % LAB HEMETOLOGY METHOD 10/27/2024 4:33 PM [facility] Monocytes Relative 7.1 % LAB HEMETOLOGY METHOD 10/27/2024 4:33 PM [facility] Eosinophils Relative 0.6 % LAB HEMETOLOGY METHOD 10/27/2024 4:33 PM [facility] Basophils Relative 0.4 % LAB HEMETOLOGY METHOD 10/27/2024 4:33 PM [facility] Immature Granulocytes Relative 0.2 % LAB HEMETOLOGY METHOD 10/27/2024 4:33 PM [facility] Neutrophils Absolute 4.90 1.50 - 7.00 K/mcL LAB HEMETOLOGY METHOD 10/27/2024 4:33 PM [facility] Lymphocytes Absolute 2.86 1.00 - 5.00 K/mcL LAB HEMETOLOGY METHOD 10/27/2024 4:33 PM [facility] Monocytes Absolute 0.60 0.20 - 1.00 K/mcL LAB HEMETOLOGY METHOD 10/27/2024 4:33 PM [facility] Eosinophils Absolute 0.05 0.00 - 0.50 K/mcL LAB HEMETOLOGY METHOD 10/27/2024 4:33 PM [facility] Basophils Absolute 0.03 0.00 - 0.20 K/mcL LAB HEMETOLOGY METHOD 10/27/2024 4:33 PM EST [facility] Immature Granulocytes Absolute 0.02 0.00 - 0.03 K/[facility] LAB HEMETOLOGY METHOD 10/27/2024 4:33 PM EST [facility] Blood Venous blood specimen / Unknown Venipuncture / Unknown 10/27/2024 3:31 PM EST 10/27/2024 4:21 PM EST Carol ESTEBAN LAB BLOOD ORDERABLES Final Resu lt [facility] [address] [place] [address], [place] [phone] * Iron and TIBC (10/27/2024 3:31 PM EST) Iron 70 40 - 150 mcg/dL LAB CHEMISTRY METHOD 10/27/2024 5:03 PM [facility] TIBC 345 250 - 450 mcg/dL LAB CHEMISTRY METHOD 10/27/2024 5:03 PM [facility] Iron Saturation 20 15 - 50 % LAB CHEMISTRY METHOD 10/27/2024 5:03 PM [facility] Blood Venous blood specimen / Unknown Venipuncture / Unknown 10/27/2024 3:31 PM EST 10/27/2024 4:20 PM EST Carol ESTEBAN LAB BLOOD ORDERABLES Final Resu lt [facility] [address] [place] [address], [place] [phone] * Ferritin (10/27/2024 3:31 PM EST) Ferritin 89 8 - 252 ng/mL LAB CHEMISTRY METHOD 10/27/2024 5:03 PM EST [facility] Blood Venous blood specimen / Unknown Venipuncture / Unknown 10/27/2024 3:31 PM EST 10/27/2024 4:20 PM EST us Carol ESTEBAN LAB BLOOD ORDERABLES Final Resu lt [facility] [address] [place] [address], * Comprehensive metabolic panel (10/27/2024 3:31 PM EST) [facility] Sodium 137 133 - 145 mmol/L LAB CHEMISTRY METHOD 10/27/2024 5:03 PM [facility] Potassium 3.9 3.5 - 5.5 mmol/L LAB CHEMISTRY METHOD 10/27/2024 5:03 PM [facility] Chloride 103 96 - 110 mmol/L LAB CHEMISTRY METHOD 10/27/2024 5:03 PM [facility] CO2 26 21 - 32 mmol/L LAB CHEMISTRY METHOD 10/27/2024 5:03 PM [facility] Anion Gap 8 3 - 11 LAB CHEMISTRY METHOD 10/27/2024 5:03 PM [facility] Glucose 73 70 - 100 mg/dL LAB CHEMISTRY METHOD 10/27/2024 5:03 PM [facility] BUN 12 5 - 25 mg/dL LAB CHEMISTRY METHOD 10/27/2024 5:03 PM [facility] Creatinine 0.85 0.50 - 1.10 mg/dL LAB CHEMISTRY METHOD 10/27/2024 5:03 PM [facility] eGFR 75 >=60 mL/min/1. 73m2 LAB CHEMISTRY METHOD 10/27/2024 5:03 PM [facility] Comment:Calculation based on the??Chronic Kidney Disease Epidemiology Collaboration (CKD-EPI) equation refit??without adjustment for race. BUN/Creatinine Ratio 14.1 LAB CHEMISTRY METHOD 10/27/2024 5:03 PM [facility] Calcium 9.8 8.5 - 10.5 mg/dL LAB CHEMISTRY METHOD 10/27/2024 5:03 PM [facility] AST (SGOT) 20 10 - 42 unit/L LAB CHEMISTRY METHOD 10/27/2024 5:03 PM [facility] ALT (SGPT) 32 10 - 60 unit/L LAB CHEMISTRY METHOD 10/27/2024 5:03 PM [facility] Alkaline Phosphatase 71 42 - 121 unit/L LAB CHEMISTRY METHOD 10/27/2024 5:03 PM [facility] Total Protein 7.2 6.0 - 8.0 g/dL LAB CHEMISTRY METHOD 10/27/2024 5:03 PM [facility] Albumin 4.1 3.2 - 5.0 g/dL LAB CHEMISTRY METHOD 10/27/2024 5:03 PM [facility] Total Bilirubin 0.4 0.0 - 1.4 mg/dL LAB CHEMISTRY METHOD 10/27/2024 5:03 PM [facility] Blood Venous blood specimen / Unknown Venipuncture / Unknown 10/27/2024 3:31 PM EST 10/27/2024 4:20 PM EST us Carol ESTEBAN LAB BLOOD ORDERABLES Final Resu lt [facility] [address] [place] [address], from Last 3 Months Insurance [employer] - [place] MEDICARE ADVANTAGE Care Teams [employer] Dispatcher Relationship Specialty Start Date End Date Kalina Palacios MD [address] [place] [address] PCP - General Internal Medicine 10/27/24
--- OUTSIDE RECORDS SUMMARY | 2024-11-24 11:05 | XMS_ITS | Patient Health Record ---
Author Organization [facility] Address [address] [facility] [address] [place] [address] Care Team Providers Care Hogshead Stripper Name Role Phone Yvonne Phillips Unavailable [phone] Reason For Referral No Information Medications Medication SIG (Take, Route, Fr equency, Duration) Notes Start Date End Date Status Vitamin E 200UNITS 1 ORAL daily for - [facility] 12/07/2012 Active Vitamin D3 1000 IU ORAL daily for - [facility] 12/07/2012 Active Fish Oil 1200MG 1 ORAL daily for [facility] 12/07/2012 Active Calcium 1 ORAL daily for -3 [facility] 12/07/2012 Active PriLOSEC OTC 20MG 1 ORAL daily for - [facility] 12/07/2012 Active Lipitor 10MG 1 ORAL daily for - [facility] 12/07/2012 Active Vitamin B12 1 ORAL daily for -3 [facility] 12/07/2012 Active Synthroid UNKNOWN 1 ORAL daily for - [facility] 12/07/2012 Active Vitamin B6 1 ORAL daily for - [facility] 12/07/2012 Active Problems Problem Type SNOMED Code ICD Code Onset Dates Problem Status W/U Status Risk Notes Problem Hypothyroidism (31119040) Unspecified hypothyroidism (244.9) Active confirmed Major Problem Hyperlipidemia (90697308) Other and unspecified hyperlipidemia (272.4) Active confirmed Major Problem Anxiety state (528781541) Anxiety state, unspecified (300.00) Active confirmed Major Problem Asthma (disorder) (116120178) Asthma, unspecified, unspecified status (493.90) Active confirmed Major Problem Esophageal reflux (168825854) Esophageal reflux (530.81) Active confirmed Major Problem Gynecological examination normal (413623954644151) Routine gynecological examination (V72.31) Active confirmed Major Problem Screening for malignant neoplasm of colon (837500898) Special screening for malignant neoplasms, colon (V76.51) Active confirmed Major Plan Of Treatment No Information Insurance Providers Payer Name Payer Address Payer Phone Subscriber Number Group Number Insured Name Patient Relationship to Insured Coverage Start Date Coverage End Date [facility] [address] [place] [address] [id number] KARLA VICENTE Self - patient is the insured
== END 2024-11-24 11:28 | disposition home or self-care (01) ==
LOC: HO.HMCC 10:14
PROVIDERS: PCP Internal Medicine; Visit Provider Internal Medicine
DX: E53.8 Deficiency of other specified B group vitamins (principal)

== ENCOUNTER → 2024-11-24 10:13 | Outpatient (BNVA) | payer MEDICARE, SELFPAY | PROVIDERS: PCP Internal Medicine; Visit Provider Internal Medicine | DX: E53.8 Deficiency of other specified B group vitamins (principal) | CPT/HCPCS: 96372; J3420 ==

== ENCOUNTER 2024-12-22 10:49 | Outpatient (AMB) | payer MEDICARE, SELFPAY ==
--- NOTE | 2024-12-22 11:03 | AM.OFFVISNUR ---
Intake Visit Reasons: B-12 Allergies Codeine Sulfate Adverse Reaction (Unknown, Uncoded 09/13/24 10:55) nausea Nursing Note Pt came in for Vitamin B12 injection. Administered to right deltoid. Pt tolerated well. Office Meds cyanocobalamin (vitamin B-12) 1,000 mcg/mL injection solution Performing Provider: Kalina Palacios MD Performing Location: [facility] Administered by: Elana Colon on 12/22/24 11:04 Dose Route Admin Location Dispensed Lot Number Expiration Date [facility] Broadcast [employer] 1,000 mcg IM 1 mL [id number] 01/10/26 42077-564-76 [employer] Assessment & Plan Assessment & Plan Orders: Orders AMB Vitamin B12 Injection Patient Supplied Today E53.8 - Deficiency of other specified B group vitamins Medications: New cyanocobalamin (vitamin B-12) 1,000 mcg IM ONCE 1 mL 0RF E53.8 - Deficiency of other specified B group vitamins Coding
--- OUTSIDE RECORDS SUMMARY | 2024-12-22 12:25 | XMS_ITS | Patient Health Record ---
Author Organization [facility] Address [address] [facility] [address] [place] [address] Care Team Providers Care Construction Worker Name Role Phone Yvonne Phillips Unavailable [phone] Reason For Referral No Information Medications Medication SIG (Take, Route, Fr equency, Duration) Notes Start Date End Date Status Vitamin E 200UNITS 1 ORAL daily for - [facility] 12/07/2012 Active Vitamin D3 1000 IU ORAL daily for - [facility] 12/07/2012 Active Fish Oil 1200MG 1 ORAL daily for [facility] 12/07/2012 Active Calcium 1 ORAL daily for -3 [facility] 12/07/2012 Active PriLOSEC OTC 20MG 1 ORAL daily for - [facility] 12/07/2012 Active Lipitor 10MG 1 ORAL daily for - [facility] 12/07/2012 Active Vitamin B12 1 ORAL daily for -3 [facility] 12/07/2012 Active Synthroid UNKNOWN 1 ORAL daily for - [facility] 12/07/2012 Active Vitamin B6 1 ORAL daily for - [facility] 12/07/2012 Active Problems Problem Type SNOMED Code ICD Code Onset Dates Problem Status W/U Status Risk Notes Problem Hypothyroidism (79125499) Unspecified hypothyroidism (244.9) Active confirmed Major Problem Hyperlipidemia (10925927) Other and unspecified hyperlipidemia (272.4) Active confirmed Major Problem Anxiety state (220518971) Anxiety state, unspecified (300.00) Active confirmed Major Problem Asthma (disorder) (218143096) Asthma, unspecified, unspecified status (493.90) Active confirmed Major Problem Esophageal reflux (897081398) Esophageal reflux (530.81) Active confirmed Major Problem Gynecological examination normal (747295536601507) Routine gynecological examination (V72.31) Active confirmed Major Problem Screening for malignant neoplasm of colon (293923936) Special screening for malignant neoplasms, colon (V76.51) Active confirmed Major Plan Of Treatment No Information Insurance Providers Payer Name Payer Address Payer Phone Subscriber Number Group Number Insured Name Patient Relationship to Insured Coverage Start Date Coverage End Date [facility] [address] [place] [address] [id number] KARLA VICENTE Self - patient is the insured
--- OUTSIDE RECORDS SUMMARY | 2024-12-22 12:25 | XMS_ITS | Clinical Summary ---
Author Organization [facility] Address [address] [place] [address] Phone Care Team Providers Care Sample Mounter Name Role Phone Kalina Palacios MD Primary [...] for anxiety. Max Daily Amount: 1 mg Active Linzess 72 mcg capsuleIndication s:Constipation, unspecified constipation type TAKE 1 CAPSULE (72 MCG TOTAL) BY MOUTH DAILY BEFORE BREAKFAST 30 capsule 5 5 Active Active Problems Problem Noted Date [...] Team Description 11/02/2024 Telephone Gastroenterology - [address] [phone] Bernie Perez MD 10/31/2024 Telephone Gastroenterology - [address] [phone] Nohemi Orozco [place] 10/28/2024 Telephone Gastroenterology - [address] [phone] Carol Nuñez PA 10/28/2024 Telephone Gastroenterology - [address] [phone] Nohemi Orozco [place] 10/27/2024 3:36 PM EST - 10/27/2024 11:59 PM EST Hospital Encounter [facility] [address] [place] [phone] Other constipation Discharge Disposition: Home or Self Care 10/27/2024 3:00 PM EST Lab Draw Station - [address] [place] [phone] Abdominal distension; Other fatigue; Difficulty eating due to fatigue 10/27/2024 2:40 PM EST Office Visit Gastroenterology - [address] [place] [phone] Carol Nuñez PA Abdominal distension (Primary Dx); Other fatigue; Other constipation; Gastroesophageal reflux disease without esophagitis; Difficulty eating due to fatigue 10/10/2024 Telephone Gastroenterology - [address] [place] [phone] Bernie Perez MD from Last 3 Months [...] of Health Screening 07/23/2022 COVID-19 Vaccine ( season) 2024 05/18/2024, 06/01/2023, 07/30/2021, Additional history exists Hypertension/CHF/CAD Annual BMP Blood Test 10/27/2025 10/27/2024 DTaP,Tdap,and Td Vaccines (2 - Td or Tdap) 09/22/2026 09/22/2016 RSV Immunization Adult Patients (1 - 1-dose 75+ series) 02/19/2032 Zoster Vaccines Completed 06/02/2022, 08/24, 05/31/2018, Additional history exists Pneumococcal Vaccine: 50+ Years Completed 04/21/2023 Influenza Vaccine Completed 05/18/2024, , 06/19/2021, Additional [...] age to complete this topic Meningococcal B Vaccine Aged Out No l onger eligible based on patient's age to complete [...] pattern. Constipation has resolved since 05/17/2024. Code 04058 -------- FINAL REPORT -------- Dictated By: Anderson Pope Dictated Date: 10/28/2024 09:11 ET Assigned Physician: Anderson Pope Reviewed and Electronically Signed By: Anderson Pope Signed Date: 10/28/2024 09:12 ET Workstation ID: [id number] Transcribed By: Self Edit Transcribed Date: 10/28/2024 [...] gas pattern. Constipation has resolvedsince 05/17/2024. Code 15910 -------- FINAL REPORT -------- Dictated By: Anderson Pope Dictated Date: 10/28/2024 09:11 ET Assigned Physician: Anderson Pope Reviewed and Electronically Signed By: Anderson Pope Signed Date: 10/28/2024 09:12 ET Workstation ID: [id number] Transcribed By: Self Edit Transcribed Date: 10/28/2024 [...] lt [facility] [address] [place] [address], * CBC auto differential (10/27/2024 3:31 PM EST) [facility] WBC 8.5 4.8 - 10.8 K/mcL LAB HEMETOLOGY METHOD 10/27/2024 4:33 PM [facility] RBC 4.40 3.80 - 4.80 M/mcL LAB HEMETOLOGY METHOD 10/27/2024 4:33 PM [facility] Hemoglobin 13.4 11.5 - 16.0 g/dL LAB HEMETOLOGY METHOD 10/27/2024 4:33 PM [facility] Hematocrit 40.9 35.0 - 47.0 % LAB HEMETOLOGY METHOD 10/27/2024 4:33 PM [facility] MCV 93.8 79.0 - 98.0 FL LAB HEMETOLOGY METHOD 10/27/2024 4:33 PM [facility] MCH 30.7 27.0 - 32.0 pcg LAB HEMETOLOGY METHOD 10/27/2024 4:33 PM [facility] MCHC 32.8 32.0 - 37.0 g/dL LAB HEMETOLOGY METHOD 10/27/2024 4:33 PM [facility] RDW 12.9 11.0 - 15.0 % LAB HEMETOLOGY METHOD 10/27/2024 4:33 PM [facility] Platelets 268 130 - 400 K/mcL LAB HEMETOLOGY METHOD 10/27/2024 4:33 PM [facility] MPV 10.7 7.0 - 11.0 FL LAB HEMETOLOGY METHOD 10/27/2024 4:33 PM [facility] NRBC 0.0 <1.0 % LAB HEMETOLOGY METHOD 10/27/2024 4:33 PM [facility] NRBC Absolute 0.00 <0.10 K/mcL LAB HEMETOLOGY METHOD 10/27/2024 4:33 PM [facility] Neutrophils Relative 57.9 % LAB HEMETOLOGY METHOD 10/27/2024 4:33 PM [facility] Lymphocytes Relative 33.8 % LAB HEMETOLOGY METHOD 10/27/2024 4:33 PM [facility] Monocytes Relative 7.1 % LAB HEMETOLOGY METHOD 10/27/2024 4:33 PM [facility] Eosinophils Relative 0.6 % LAB HEMETOLOGY METHOD 10/27/2024 4:33 PM [facility] Basophils Relative 0.4 % LAB HEMETOLOGY METHOD 10/27/2024 4:33 PM [facility] Immature Granulocytes Relative 0.2 % LAB HEMETOLOGY METHOD 10/27/2024 4:33 PM [facility] Neutrophils Absolute 4.90 1.50 - 7.00 K/mcL LAB HEMETOLOGY METHOD 10/27/2024 4:33 PM [facility] Lymphocytes Absolute 2.86 1.00 - 5.00 K/mcL LAB HEMETOLOGY METHOD 10/27/2024 4:33 PM [facility] Monocytes Absolute 0.60 0.20 - 1.00 K/mcL LAB HEMETOLOGY METHOD 10/27/2024 4:33 PM [facility] Eosinophils Absolute 0.05 0.00 - 0.50 K/mcL LAB HEMETOLOGY METHOD 10/27/2024 4:33 PM [facility] Basophils Absolute 0.03 0.00 - 0.20 K/mcL LAB HEMETOLOGY METHOD 10/27/2024 4:33 PM [facility] Immature Granulocytes Absolute 0.02 0.00 - 0.03 K/mcL LAB HEMETOLOGY METHOD 10/27/2024 4:33 PM [facility] Blood Venous blood specimen / Unknown Venipuncture / Unknown 10/27/2024 3:31 PM EST 10/27/2024 4:21 PM EST Carol ESTEBAN LAB BLOOD ORDERABLES Final Resu lt [facility] [address] [place] [address], [place] [phone] * Iron and TIBC (10/27/2024 3:31 PM [...] EST 10/27/2024 4:20 PM EST Carol Nuñez [place] LAB BLOOD ORDERABLES Final Resu lt Performing Organization Address [facility] [address]/ZIP Co de Phone Number [facility] [address] [place] [address], [place] [phone] * Ferritin (10/27/2024 3:31 PM EST) Ferritin 89 8 - 252 ng/mL LAB CHEMISTRY METHOD 10/27/2024 5:03 PM EST [facility] Blood Venous blood specimen / Unknown Venipuncture / Unknown 10/27/2024 3:31 PM EST 10/27/2024 4:20 PM EST Carol Nuñez [place] LAB BLOOD ORDERABLES Final Resu lt [facility] [address] [place] [address], [place] [phone] * Comprehensive metabolic panel (10/27/2024 3:31 PM EST) Sodium 137 133 - 145 mmol/L LAB CHEMISTRY METHOD 10/27/2024 5:03 PM [facility] Potassium 3.9 3.5 - 5.5 mmol/L LAB CHEMISTRY METHOD 10/27/2024 5:03 PM [facility] Chloride 103 96 - 110 mmol/L LAB CHEMISTRY METHOD 10/27/2024 5:03 PM [facility] CO2 26 21 - 32 mmol/L LAB CHEMISTRY METHOD 10/27/2024 5:03 PM [facility] Anion Gap 8 3 - 11 LAB CHEMISTRY METHOD 10/27/2024 5:03 PM [facility] Glucose 73 70 - 100 mg/dL LAB CHEMISTRY METHOD 10/27/2024 5:03 PM [facility] BUN 12 5 - 25 mg/dL LAB CHEMISTRY METHOD 10/27/2024 5:03 PM [facility] Creatinine 0.85 0.50 - 1.10 mg/dL LAB CHEMISTRY METHOD 10/27/2024 5:03 PM [facility] eGFR 75 >=60 mL/min/1. 73m2 LAB CHEMISTRY METHOD 10/27/2024 5:03 PM [facility] Comment:Calculation based on the??Chronic Kidney Disease Epidemiology Collaboration (CKD-EPI) equation refit??without adjustment for race. BUN/Creatinine Ratio 14.1 LAB CHEMISTRY METHOD 10/27/2024 5:03 PM [facility] Calcium 9.8 8.5 - 10.5 mg/dL LAB CHEMISTRY METHOD 10/27/2024 5:03 PM [facility] AST (SGOT) 20 10 - 42 unit/L LAB CHEMISTRY METHOD 10/27/2024 5:03 PM [facility] ALT (SGPT) 32 10 - 60 unit/L LAB CHEMISTRY METHOD 10/27/2024 5:03 PM EST [facility] Alkaline Phosphatase 71 42 - 121 unit/L LAB CHEMISTRY METHOD 10/27/2024 5:03 PM [facility] Total Protein 7.2 6.0 - 8.0 g/dL LAB CHEMISTRY METHOD 10/27/2024 5:03 PM EST [facility] Albumin 4.1 3.2 - 5.0 g/dL LAB CHEMISTRY METHOD 10/27/2024 5:03 PM [facility] Total Bilirubin 0.4 0.0 - 1.4 mg/dL LAB CHEMISTRY METHOD 10/27/2024 5:03 PM [facility] Blood Venous blood specimen / Unknown Venipuncture / Unknown 10/27/2024 3:31 PM EST 10/27/2024 4:20 PM EST us Carol ESTEBAN LAB BLOOD ORDERABLES Final Resu lt [facility] [address] [place] [address], from Last 3 Months Insurance [place]UE [place] - [place] MEDICARE ADVANTAGE Care Teams Sample Mounter Relationship Specialty Start Date End Date Kalina Palacios MD [address] [place] [phone] PCP - General Internal Medicine 10/27/24
== END 2024-12-22 11:45 | disposition home or self-care (01) ==
LOC: HO.HMCC 10:50
PROVIDERS: PCP Internal Medicine; Visit Provider Internal Medicine
DX: E53.8 Deficiency of other specified B group vitamins (principal)

== ENCOUNTER → 2024-12-22 10:49 | Outpatient (BNVA) | payer MEDICARE, SELFPAY | PROVIDERS: PCP Internal Medicine; Visit Provider Internal Medicine | DX: E53.8 Deficiency of other specified B group vitamins (principal) | CPT/HCPCS: 96372; J3420 ==

== ENCOUNTER 2024-12-28 13:40 | Outpatient (AMB) | payer MEDICARE, SELFPAY ==
[2024-12-28 13:42] VITALS: BP 132/66; PULSE 75; O2SAT 99; BMI 25.7
--- NOTE | 2024-12-28 13:42 | A.OFFVIS_ITS ---
Vital Signs 12/28/24 13:42 Height 5 ft Weight 131 lb 6.328 oz BMI 25.7 BP 132/66 Blood Pressure Location Lt brachial Position Sitting Pulse 75 Pulse Source Pulse Oximeter Pulse Oximetry (%) 99 Oxygen Delivery Method Room Air Intake Visit Reasons: f/u osteoporosis Intake Note: Patient present today for Osteoporosis follow up. 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 Accompanied by: Self / Same As Patient Allergies Codeine Sulfate Adverse Reaction (Unknown, Uncoded 12/28/24 13:45) nausea Medication List - Last Reconciled 12/28/24 by Jason Delcid MD alprazolam 0.5 mg PO DAILY PRN aspirin 81 mg PO DAILY cholecalciferol (vitamin D3) 50 mcg PO DAILY cyanocobalamin (vitamin B-12) 1,000 mcg subcut Q4W famotidine 20 mg PO DAILY PRN levothyroxine 50 mcg PO DAILY linaclotide (Linzess) 72 mcg PO DAILY meclizine 25 mg PO BID PRN omeprazole 20 mg PO DAILY ondansetron HCl 4 mg PO DAILY PRN rosuvastatin 40 mg PO DAILY HPI Comments Details: 69 YO Female is seen in consultation at the request of PCP for Osteoporosis. First diagnosed in this yr . Not Received treatment in the past No history of pathologic fracture or ONJ. Has several servings of dietary calcium per day in the form of broccoli, cottage cheese . Not Takes Calcium supplement . Takes ? IU of Vitamin D daily. Takes PPI, no anticoagulant, antiepileptic or glucocorticoid medication. 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 UTD on dental cleanings and sees dentist every 6 months. No planned upcoming dental work or extractions. 3-4 cigarettes/day DXA dated 07/20/24:FINDINGS: LEFT FEMUR, NECK: BMD 0.724 g/cm2, Z-score -0.6, T-score -2.3, osteopenia. LEFT FEMUR, TOTAL: BMD 0.740 g/cm2, Z-score -0.7, T-score -2.1, osteopenia. AP SPINE L1-L4: BMD 0.822 g/cm2, Z-score -1.2, T-score -3.0, osteoporosis. IDENTIFIED RISK FACTORS: Menopause, low calcium intake. HISTORY OF FRACTURE: None listed. MEDICATIONS: None listed. MM/XR DEXA axial skeleton IMPRESSION: 1. DIAGNOSIS: Osteoporosis based on the lowest T-score value of -3.0 in the lumbar spine applying World Health Organization criteria. Labs: Secondary workup was negative The patient is a 69-year-old female presenting with osteoporosis. Following a secondary workup for osteoporosis including a 24-hour urine collection conducted three months ago, the results returned normal; however, the concern remains given the patient's T-score of -3.0 in the spine. This score suggests significant bone loss, emphasizing the need for ongoing evaluation to prevent fractures, especially considering her age and quality of life implications should a fracture occur. The patient has a history of a Transient Ischemic Attack (TIA) eight years ago but has not experienced further incidents within the last year. She denies any history of radiation therapy for cancer or recent cardiovascular events barring the TIA. Additionally, she notes that avoiding hard seating appears to improve her back discomfort, attributed to arthritis. These collective background details inform the consideration of treatment options to optimize bone density and mitigate future fracture risks. [facility] Medical History (Updated 09/14/24 @ 14:45 by Kalina Palacios MD) Hx of TIA (transient ischemic attack) and stroke Osteoporosis of lumbar spine Vitamin B12 deficiency History of fracture of foot Chronic GERD Generalized anxiety disorder Dyslipidemia Surgical History Hx of colonoscopy Family History Father Coronary artery disease Brother Coronary artery disease Paternal Grandmother Breast cancer Social History (Updated 09/14/24 @ 14:12 by Ivone Altamirano CMA) Housing: House Alcohol intake: current Patient Tobacco Use Status: Current everyday Tobacco user Cigarettes Per Day: 2 e-Cigarette/Vaping Use: Never Used Second Hand Smoke Exposure: No service: No Current occupational status: retired Cognitive needs: No Hearing needs: No Vision needs: No Physical Exam Vital Signs: Last Vital Signs Pulse 75 12/28/24 13:42 BP 132/66 12/28/24 13:42 Pulse Ox 99 12/28/24 13:42 Oxygen Delivery Method Room Air 12/28/24 13:42 BMI result Body Mass Index 25.7 Assessment & Plan Assessment & Plan (1) Osteoporosis of lumbar spine: Code(s): M81.0 - Age-related osteoporosis without current pathological fracture Category: Medical Plan: This is a 69-year-old white female with a history of osteoporosis. Secondary causes have been ruled out Plan is to cconsider use of anabolic initially like Evenity, Forteo or Tymlos proceeded by an anti resorptive considering the high risk for fracture and low bone density . 1. Osteoporosis Osteoporosis continues to be the primary concern given the patient's T-score of -3.0. Treatment options discussed include Evenity for significant bone density improvement. Safety concerns due to past TIA necessitate careful selection of treatment, with Forteo or Tymlos as alternatives. Insurance coverage will guide the final decision. During the consultation, I discussed the osteoporosis diagnosis and the challenge in managing the condition given the patient's low T-score and history of TIA. We considered several treatment options, including Evenity, Forteo, and Tymlos, emphasizing the differences between anabolic therapies and those that help stabilize bone density [id number]. We explored insurance approval pathways, particularly for Evenity, given her [employer] Medicare Advantage Plan and potential cost barriers. Risks versus benefits, particularly concerning cardiovascular health for Evenity, were thoroughly deliberated. Follow-up procedures involve waiting for insurance determinations, and if approved, scheduling through specialty pharmacy processes or direct referrals to [facility] for potential cost management. I advised on the importance of constant contact to ensure smooth approval completion and monitoring therapy suitability. - Continue taking your calcium supplements daily as discussed. - Wait for a notification regarding insurance approval for Evenity or alternative osteoporosis medications. - - For any clarifications or if you do not receive notification about medication approval within a few weeks, please call our office to follow up. - Ensure you have your insurance information handy for any further interactions needed with pharmacies or medical providers. T The patient had an opportunity to ask questions regarding treatment plan. The patient expressed understanding and agreement with the above treatment plan. Patient was informed and verbally consented to the use of an ambient scribe for clinic note documentation during this visit. Medications: New romosozumab-aqqg (Evenity) 210 mg (2.34 mL) subcut .monthly 2.34 mL 11RF Coding Level of Care Code Est Pt Level 3 (36106) Diagnoses Osteoporosis of lumbar spine M81.0
== END 2024-12-28 14:29 | disposition home or self-care (01) ==
LOC: HO.ENCR 13:40
PROVIDERS: PCP Internal Medicine; Visit Provider Internal Medicine Endocrinology, Diabetes & Metabolism
DX: M81.0 Age-related osteoporosis without current pathological fracture (principal)
CPT/HCPCS: 99213

== ENCOUNTER → 2024-12-28 13:40 | Outpatient (BNVA) | payer MEDICARE, SELFPAY | PROVIDERS: PCP Internal Medicine; Visit Provider Internal Medicine Endocrinology, Diabetes & Metabolism | DX: M81.0 Age-related osteoporosis without current pathological fracture (principal) | CPT/HCPCS: 99212 ==

== ENCOUNTER 2025-01-17 12:06 | Outpatient (AMB) | payer MEDICARE, SELFPAY ==
--- OUTSIDE RECORDS SUMMARY | 2025-01-17 12:29 | XMS_ITS | Clinical Summary ---
Author Organization [facility] 299 [facility] Address [address] [place] [address] Phone Care Team Providers Care Oxygen Tank Filler Name Role Phone Kalina Palacios MD [...] Team Description 11/02/2024 Telephone Gastroenterology - [address] [address] Bernie Perez MD 10/31/2024 Telephone Gastroenterology - [address] [address] Nohemi Orozco [place] 10/28/2024 Telephone Gastroenterology - [address] [address] Carol Nuñez PA 10/28/2024 Telephone Gastroenterology - [address] [address] Nohemi Orozco [place] 10/27/2024 3:36 PM EST - 10/27/2024 11:59 PM EST Hospital Encounter [facility] Xray [address] [place] [phone] Other constipation Discharge Disposition: Home or Self Care 10/27/2024 3:00 PM EST Lab Draw Station - [address] [place] [phone] Abdominal distension; Other fatigue; Difficulty eating due to fatigue 10/27/2024 2:40 PM EST Office Visit Gastroenterology - 299 [facility] 299 [facility] [address] [place] [phone] Carol Nuñez PA Abdominal distension (Primary Dx); Other fatigue; Other constipation; Gastroesophageal reflux disease without esophagitis; Difficulty eating due to fatigue from Last 3 Months Surgical History Surgery [...] pattern. Constipation has resolved since 05/17/2024. Code 14569 -------- FINAL REPORT -------- Dictated By: Anderson Pope Dictated Date: 10/28/2024 09:11 ET Assigned Physician: Anderson Pope Reviewed and Electronically Signed By: Anderson Pope Signed Date: 10/28/2024 09:12 ET Workstation ID: [id number] Transcribed By: Self Edit Transcribed Date: 10/28/2024 [...] gas pattern. Constipation has resolvedsince 05/17/2024. Code 71082 -------- FINAL REPORT -------- Dictated By: Anderson Pope Dictated Date: 10/28/2024 09:11 ET Assigned Physician: Anderson Pope Reviewed and Electronically Signed By: Anderson Pope Signed Date: 10/28/2024 09:12 ET Workstation ID: [id number] Transcribed By: Self Edit Transcribed Date: 10/28/2024 09:11 ET us Carol ESTEBAN IMG XR PROCEDURES Final Result * (ABNORMAL) Vitamin B12 and folate (10/27/2024 3:31 PM EST) [facility] Vitamin B-12 944(H) 250 - 900 pcg/mL LAB CHEMISTRY METHOD 10/27/2024 5:25 PM EST [facility] Folate >20.0(H) 2.8 - 17.0 ng/ml LAB CHEMISTRY METHOD 10/27/2024 5:25 PM EST [facility] Blood Venous blood specimen / Unknown Venipuncture / Unknown 10/27/2024 3:31 PM EST 10/27/2024 4:20 PM EST us Carol ESTEBAN LAB BLOOD ORDERABLES Final Resu lt [facility] [address] [place] [address], * CBC auto differential (10/27/2024 3:31 PM EST) [facility] WBC 8.5 4.8 - 10.8 K/[facility] LAB HEMETOLOGY METHOD 10/27/2024 4:33 PM [facility] RBC 4.40 3.80 - 4.80 M/mcL LAB HEMETOLOGY METHOD 10/27/2024 4:33 PM [facility] Hemoglobin 13.4 11.5 - 16.0 g/dL LAB HEMETOLOGY METHOD 10/27/2024 4:33 PM [facility] Hematocrit 40.9 35.0 - 47.0 % LAB HEMETOLOGY METHOD 10/27/2024 4:33 PM [facility] MCV 93.8 79.0 - 98.0 FL LAB HEMETOLOGY METHOD 10/27/2024 4:33 PM [facility] MCH 30.7 27.0 - 32.0 pcg LAB HEMETOLOGY METHOD 10/27/2024 4:33 PM [facility] MCHC 32.8 32.0 - 37.0 g/dL LAB HEMETOLOGY METHOD 10/27/2024 4:33 PM [facility] RDW 12.9 11.0 - 15.0 % LAB HEMETOLOGY METHOD 10/27/2024 4:33 PM [facility] Platelets 268 130 - 400 K/[facility] LAB HEMETOLOGY METHOD 10/27/2024 4:33 PM [facility] MPV 10.7 7.0 - 11.0 FL LAB HEMETOLOGY METHOD 10/27/2024 4:33 PM [facility] NRBC 0.0 <1.0 % LAB HEMETOLOGY METHOD 10/27/2024 4:33 PM [facility] NRBC Absolute 0.00 <0.10 K/[facility] LAB HEMETOLOGY METHOD 10/27/2024 4:33 PM [facility] Neutrophils Relative 57.9 % LAB HEMETOLOGY METHOD 10/27/2024 4:33 PM [facility] Lymphocytes Relative 33.8 % LAB HEMETOLOGY METHOD 10/27/2024 4:33 PM [facility] Monocytes Relative 7.1 % LAB HEMETOLOGY METHOD 10/27/2024 4:33 PM [facility] Eosinophils Relative 0.6 % LAB HEMETOLOGY METHOD 10/27/2024 4:33 PM [facility] Basophils Relative 0.4 % LAB HEMETOLOGY METHOD 10/27/2024 4:33 PM [facility] Immature Granulocytes Relative 0.2 % LAB HEMETOLOGY METHOD 10/27/2024 4:33 PM [facility] Neutrophils Absolute 4.90 1.50 - 7.00 K/mcL LAB HEMETOLOGY METHOD 10/27/2024 4:33 PM [facility] Lymphocytes Absolute 2.86 1.00 - 5.00 K/mcL LAB HEMETOLOGY METHOD 10/27/2024 4:33 PM [facility] Monocytes Absolute 0.60 0.20 - 1.00 K/mcL LAB HEMETOLOGY METHOD 10/27/2024 4:33 PM [facility] Eosinophils Absolute 0.05 0.00 - 0.50 K/mcL LAB HEMETOLOGY METHOD 10/27/2024 4:33 PM [facility] Basophils Absolute 0.03 0.00 - 0.20 K/mcL LAB HEMETOLOGY METHOD 10/27/2024 4:33 PM [facility] Immature Granulocytes Absolute 0.02 0.00 - 0.03 K/mcL LAB HEMETOLOGY METHOD 10/27/2024 4:33 PM [facility] Blood Venous blood specimen / Unknown Venipuncture / Unknown 10/27/2024 3:31 PM EST 10/27/2024 4:21 PM EST us Carol Nuñez PA LAB BLOOD ORDERABLES Final Resu lt [facility] [address] [place] [address], [place] [phone] * Iron and TIBC (10/27/2024 3:31 PM EST) Iron 70 40 - 150 mcg/dL LAB CHEMISTRY METHOD 10/27/2024 5:03 PM EST [facility] TIBC 345 250 - 450 mcg/dL LAB CHEMISTRY METHOD 10/27/2024 5:03 PM EST [facility] Iron Saturation 20 15 - 50 % LAB CHEMISTRY METHOD 10/27/2024 5:03 PM EST [facility] Blood Venous blood specimen / Unknown Venipuncture / Unknown 10/27/2024 3:31 PM EST 10/27/2024 4:20 PM EST Carol Nuñez OR LAB BLOOD ORDERABLES Final Resu lt Performing Organization Address City/[facility]/ZIP Co de Phone Number [facility] [address] [place] [address], [place] [phone] * Ferritin (10/27/2024 3:31 PM EST) Ferritin 89 8 - 252 ng/mL LAB CHEMISTRY METHOD 10/27/2024 5:03 PM EST [facility] Blood Venous blood specimen / Unknown Venipuncture / Unknown 10/27/2024 3:31 PM EST 10/27/2024 4:20 PM EST us Carol Nuñez PA LAB BLOOD ORDERABLES Final Resu lt [facility] [address] [place] [address], [place] [phone] * Comprehensive metabolic panel (10/27/2024 3:31 PM EST) Sodium 137 133 - 145 mmol/L LAB CHEMISTRY METHOD 10/27/2024 5:03 PM [facility] Potassium 3.9 3.5 - 5.5 mmol/L LAB CHEMISTRY METHOD 10/27/2024 5:03 PM [facility] Chloride 103 96 - 110 mmol/L LAB CHEMISTRY METHOD 10/27/2024 5:03 PM [facility] CO2 26 21 - 32 mmol/L LAB CHEMISTRY METHOD 10/27/2024 5:03 PM [facility] Anion Gap 8 3 - 11 LAB CHEMISTRY METHOD 10/27/2024 5:03 PM [facility] Glucose 73 70 - 100 mg/dL LAB CHEMISTRY METHOD 10/27/2024 5:03 PM [facility] BUN 12 5 - 25 mg/dL LAB CHEMISTRY METHOD 10/27/2024 5:03 PM [facility] Creatinine 0.85 0.50 - 1.10 mg/dL LAB CHEMISTRY METHOD 10/27/2024 5:03 PM [facility] eGFR 75 >=60 mL/min/1. 73m2 LAB CHEMISTRY METHOD 10/27/2024 5:03 PM [facility] Comment:Calculation based on the??Chronic Kidney Disease Epidemiology Collaboration (CKD-EPI) equation refit??without adjustment for race. BUN/Creatinine Ratio 14.1 LAB CHEMISTRY METHOD 10/27/2024 5:03 PM [facility] Calcium 9.8 8.5 - 10.5 mg/dL LAB CHEMISTRY METHOD 10/27/2024 5:03 PM [facility] AST (SGOT) 20 10 - 42 unit/L LAB CHEMISTRY METHOD 10/27/2024 5:03 PM [facility] ALT (SGPT) 32 10 - 60 unit/L LAB CHEMISTRY METHOD 10/27/2024 5:03 PM [facility] Alkaline Phosphatase 71 42 - 121 unit/L LAB CHEMISTRY METHOD 10/27/2024 5:03 PM EST [facility] Total Protein 7.2 6.0 - 8.0 g/dL LAB CHEMISTRY METHOD 10/27/2024 5:03 PM EST [facility] Albumin 4.1 3.2 - 5.0 g/dL LAB CHEMISTRY METHOD 10/27/2024 5:03 PM EST [facility] Total Bilirubin 0.4 0.0 - 1.4 mg/dL LAB CHEMISTRY METHOD 10/27/2024 5:03 PM EST [facility] Blood Venous blood specimen / Unknown Venipuncture / Unknown 10/27/2024 3:31 PM EST 10/27/2024 4:20 PM EST us Carol ESTEBAN LAB BLOOD ORDERABLES Final Resu lt [facility] [address] [place] [address], [place] [phone] from Last 3 Months Insurance BLUE [employer] - [place] MEDICARE ADVANTAGE Care Teams Oxygen Tank Filler Relationship Specialty Start Date End Date Kalina Palacios MD [address] [place] [phone] PCP - General Internal Medicine 10/27/24
--- NOTE | 2025-01-17 13:30 | AM.OFFWIN_ITS ---
Intake Vital Signs 01/17/25 13:33 Weight 128 lb BP 130/80 Blood Pressure Location Lt brachial Position Sitting Pulse 66 Pulse Source Pulse Oximeter Temp 98.2 F Temp Source Oral Pulse Oximetry (%) 97 Oxygen Delivery Method Room Air Intake Visit Reasons: EP LT side sinus pain Intake Note: Patient here for left sided sinus pain and watery eyes that has been present for about 4 days. Patient Tobacco Use Status: Current everyday Tobacco user Allergies Codeine Sulfate Adverse Reaction (Unknown, Uncoded 01/17/25 13:34) nausea Do you need a note to return to daycare/school/sports/work: No HPI HPI Comments History of Present Illness Details 69 y/o female patient who presents to [facility] walk in clinic with c/o left sided sinus pain and watery eyes that has been present for about 4 days. Pt reports that in the past few days, she has been sleeping with a Fan blowing directly onto her Face. She also has Plug in Air freshener that is facing her bed close to her Face. Pt believes this could be affecting her and irritating her Nasal passage way. Denies any other URI symptoms. [facility] Medical History (Updated 01/17/25 @ 13:53 by Jocelynn Rogers NP) Sinus pressure Hx of TIA (transient ischemic attack) and stroke Osteoporosis of lumbar spine Vitamin B12 deficiency History of fracture of foot Chronic GERD Generalized anxiety disorder Dyslipidemia Surgical History Hx of colonoscopy Family History Father Coronary artery disease Brother Coronary artery disease Paternal Grandmother Breast cancer Social History (Updated 09/14/24 @ 14:12 by Ivone Altamirano CMA) Housing: House Alcohol intake: current Patient Tobacco Use Status: Current everyday Tobacco user Cigarettes Per Day: 2 e-Cigarette/Vaping Use: Never Used Second Hand Smoke Exposure: No service: No Current occupational status: retired Cognitive needs: No Hearing needs: No Vision needs: No Review of Systems Const All systems reviewed & are unremarkable except as noted in HPI and below Physical Exam Vital Signs: Last Vital Signs Temp 98.2 F 01/17/25 13:33 Pulse 66 01/17/25 13:33 BP 130/80 01/17/25 13:33 Pulse Ox 97 01/17/25 13:33 Oxygen Delivery Method Room Air 01/17/25 13:33 Const General: no acute distress Nutritional Appearance: well nourished Orientation/consciousness: patient oriented x3 HEENT Head: Yes normocephalic Ears: external ears normal and TM's normal bilaterally General nose exam: Abnormal mucous membranes and turbinates present boggy and erythematous Face and sinus: Yes sinuses nontender Mouth: moist mucous membranes Throat: Yes uvula midline Resp Effort & Inspection: normal respiratory effort Auscultation: clear to auscultation bilaterally Cardio Heart sounds: S1 normal heart sound present and S2 normal heart sound present Neuro General: patient oriented x3 Assessment & Plan Assessment & Plan (1) Sinus pressure: Code(s): J34.89 - Other specified disorders of nose and nasal sinuses Plan: Allergic rhinitis - ordered Flonase nasal spray. She may use Normal Saline nasal spray. Keep the Fan away from face. Medications: New fluticasone propionate 50 mcg/actuation (Flonase Allergy Relief) administer into each nostril 1 spray intranasal BID 16 grams 0RF J34.89 - Other specified disorders of nose and nasal sinuses Coding Level of Care Code Est Pt Level 4 (34396) Diagnoses Sinus pressure J34.89 Time Spent (min) 20
[2025-01-17 13:33] VITALS: BP 130/80; PULSE 66; TEMP 36.8; O2SAT 97
== END 2025-01-17 14:23 | disposition home or self-care (01) ==
PROVIDERS: PCP Internal Medicine; Visit Provider Nurse Practitioner Family
DX: J34.89 Other specified disorders of nose and nasal sinuses (principal)

== ENCOUNTER → 2025-01-17 12:06 | Outpatient (BNVA) | payer MEDICARE, SELFPAY | PROVIDERS: PCP Internal Medicine; Visit Provider Nurse Practitioner Family | DX: J34.89 Other specified disorders of nose and nasal sinuses (principal) | CPT/HCPCS: 99212 ==

== ENCOUNTER 2025-01-23 11:17 | Outpatient (AMB) | payer MEDICARE, SELFPAY ==
--- NOTE | 2025-01-23 11:55 | AM.OFFVISNUR ---
Intake Visit Reasons: b-12 Allergies Codeine Sulfate Adverse Reaction (Unknown, Uncoded 01/17/25 13:34) nausea Nursing Note Pt came into the office, had Vitamin B12 injection to right deltoid. Pt tolerated well. Office Meds cyanocobalamin (vitamin B-12) 1,000 mcg/mL injection solution Performing Provider: Kalina Palacios MD Performing Location[place] [facility] Administered by: Elana Colon on 01/23/25 11:56 Dose Route Admin Location Dispensed Lot Number Expiration Date [facility] [employer] 1,000 mcg IM 1 mL [id number] 01/10/26 97859-111-08 Familio Assessment & Plan Assessment & Plan Orders: Orders AMB Vitamin B12 Injection Patient Supplied Today E53.8 - Deficiency of other specified B group vitamins Medications: New cyanocobalamin (vitamin B-12) 1,000 mcg IM ONCE 1 mL 0RF E53.8 - Deficiency of other specified B group vitamins Coding
--- OUTSIDE RECORDS SUMMARY | 2025-01-23 12:36 | XMS_ITS | Clinical Summary ---
Author Organization [facility] 299 [facility] Address [address] [place] [address] Phone Care Team Providers Care Specialty Manufacturing Supervisor Name Role Phone Kalina Palacios MD Primary [...] Team Description 11/02/2024 Telephone Gastroenterology - [address] [address] Bernie Perez MD 10/31/2024 Telephone Gastroenterology - [address] [phone] Nohemi Orozco [place] 10/28/2024 Telephone Gastroenterology - [address] [address] Carol Nuñez PA 10/28/2024 Telephone Gastroenterology - [address] [phone] Nohemi Orozco [place] 10/27/2024 3:36 PM EST - 10/27/2024 11:59 PM EST Hospital Encounter [facility] Xray [address] [place] [phone] Other constipation Discharge Disposition: Home or Self Care 10/27/2024 3:00 PM EST Lab Draw Station - [address] [place] [phone] Abdominal distension; Other fatigue; Difficulty eating due to fatigue 10/27/2024 2:40 PM EST Office Visit Gastroenterology - 299 [facility] 299 [facility] [address] [place] [phone] Carol Nuñez PA Abdominal distension (Primary Dx); [...] pattern. Constipation has resolved since 05/17/2024. Code 06778 -------- FINAL REPORT -------- Dictated By: Anderson Pope Dictated Date: 10/28/2024 09:11 ET Assigned Physician: Anderson Pope Reviewed and Electronically Signed By: Adnerson Pope Signed Date: 10/28/2024 09:12 ET Workstation ID: [id number] Transcribed By: Self Edit Transcribed Date: 10/28/2024 [...] gas pattern. Constipation has resolvedsince 05/17/2024. Code 43577 -------- FINAL REPORT -------- Dictated By: Anderson Pope Dictated Date: 10/28/2024 09:11 ET Assigned Physician: Anderson Pope Reviewed and Electronically Signed By: Anderson Pope Signed Date: 10/28/2024 09:12 ET Workstation ID: [id number] Transcribed By: Self Edit Transcribed Date: 10/28/2024 09:11 ET us Carol ESTEBAN IMG XR PROCEDURES Final Result * (ABNORMAL) Vitamin B12 and folate (10/27/2024 3:31 PM EST) [facility] Vitamin B-12 944(H) 250 - 900 pcg/mL LAB CHEMISTRY METHOD 10/27/2024 5:25 PM EST [facility] Folate >20.0(H) 2.8 - 17.0 ng/ml LAB CHEMISTRY METHOD 10/27/2024 5:25 PM EST [facility] Blood Venous blood specimen / Unknown Venipuncture / Unknown 10/27/2024 3:31 PM EST 10/27/2024 4:20 PM EST us Carol ESTEBAN LAB BLOOD ORDERABLES Final Resu lt [facility] [address] [place] [address], * CBC auto differential (10/27/2024 3:31 PM EST) [facility] WBC 8.5 4.8 - 10.8 K/[facility] LAB HEMETOLOGY METHOD 10/27/2024 4:33 PM [facility] RBC 4.40 3.80 - 4.80 [...] HOSPITAL LAB Platelets 268 130 - 400 K/[facility] LAB HEMETOLOGY METHOD 10/27/2024 4:33 PM [facility] MPV 10.7 7.0 - 11.0 FL LAB HEMETOLOGY METHOD 10/27/2024 4:33 PM [facility] NRBC 0.0 <1.0 % LAB HEMETOLOGY METHOD 10/27/2024 4:33 PM [facility] NRBC Absolute 0.00 <0.10 K/[facility] LAB HEMETOLOGY METHOD 10/27/2024 4:33 PM GRACE [...] PM [facility] Immature Granulocytes Absolute 0.02 0.00 - 0.03 K/mcL LAB HEMETOLOGY METHOD 10/27/2024 4:33 PM [facility] Blood Venous blood specimen / Unknown Venipuncture / Unknown 10/27/2024 3:31 PM EST 10/27/2024 4:21 PM EST us Carol Nuñez PA LAB BLOOD ORDERABLES Final Resu lt [facility] [address] [place] [address], [place] [phone] * Iron and TIBC (10/27/2024 3:31 PM EST) Iron 70 40 - 150 mcg/dL LAB CHEMISTRY METHOD 10/27/2024 5:03 PM EST [facility] TIBC 345 250 - 450 mcg/dL LAB CHEMISTRY METHOD 10/27/2024 5:03 PM EST [facility] Iron Saturation 20 15 - 50 % LAB CHEMISTRY METHOD 10/27/2024 5:03 PM EST [facility] Blood Venous blood specimen / Unknown Venipuncture / Unknown 10/27/2024 3:31 PM EST 10/27/2024 4:20 PM EST Carol Nuñez CO LAB BLOOD ORDERABLES Final Resu lt Performing Organization Address City/[facility]/ZIP Co de Phone Number [facility] [address] [place] [address], [place] [phone] * Ferritin (10/27/2024 3:31 PM EST) Ferritin 89 8 - 252 ng/mL LAB CHEMISTRY METHOD 10/27/2024 5:03 PM EST [facility] Blood Venous blood specimen / Unknown Venipuncture / Unknown 10/27/2024 3:31 PM EST 10/27/2024 4:20 PM EST us Carol Nuñez PA LAB BLOOD ORDERABLES Final Resu lt [facility] [address] [place] [address], [place] [phone] * Comprehensive metabolic panel (10/27/2024 3:31 PM [...] LAB CHEMISTRY METHOD 10/27/2024 5:03 PM EST [facility] Total Protein 7.2 6.0 - 8.0 g/dL LAB CHEMISTRY METHOD 10/27/2024 5:03 PM EST [facility] Albumin 4.1 3.2 - 5.0 g/dL LAB CHEMISTRY METHOD 10/27/2024 5:03 PM EST [facility] Total Bilirubin 0.4 0.0 - 1.4 mg/dL LAB CHEMISTRY METHOD 10/27/2024 5:03 PM EST [facility] Blood Venous blood specimen / Unknown Venipuncture / Unknown 10/27/2024 3:31 PM EST 10/27/2024 4:20 PM EST us Carol ESTEBAN LAB BLOOD ORDERABLES Final Resu lt [facility] [address] [place] [address], [place] [phone] from Last 3 Months Insurance BL[place] [employer] - [place]IC[place] AD[place]ANT[place] Care Teams Specialty Manufacturing Supervisor Relationship Specialty Start Date End Date Kalina Palacios MD [address] [place] [phone] PCP - General Internal Medicine 10/27/24
== END 2025-01-23 11:33 | disposition home or self-care (01) ==
LOC: HO.HMCC 11:18
PROVIDERS: PCP Internal Medicine; Visit Provider Internal Medicine
DX: E53.8 Deficiency of other specified B group vitamins (principal)

== ENCOUNTER → 2025-01-23 11:17 | Outpatient (BNVA) | payer MEDICARE, SELFPAY | PROVIDERS: PCP Internal Medicine; Visit Provider Internal Medicine | DX: E53.8 Deficiency of other specified B group vitamins (principal) | CPT/HCPCS: 96372; J3420 ==

== ENCOUNTER 2025-01-26 13:46 | Outpatient (AMB) | payer MEDICARE, SELFPAY ==
[2025-01-26 13:45] VITALS: BP 142/74; PULSE 71; TEMP 36.7; O2SAT 95; BMI 25.0
--- NOTE | 2025-01-26 13:45 | MHC.OFFWIV ---
Intake Vital Signs 01/26/25 13:45 Height 5 ft Weight 128 lb BMI 25.0 BP 142/74 H Blood Pressure Location Lt brachial Position Sitting Pulse 71 Pulse Source Pulse Oximeter Temp 98.1 F Temp Source Oral Pulse Oximetry (%) 95 Oxygen Delivery Method Room Air Intake Visit Reasons: EP-lower back pain Intake Note: Pt presents to the office today for c/o lower back pain,pain under her right shoulder blade. Pt states this started last week. Patient Tobacco Use Status: Current everyday Tobacco user Allergies Codeine Sulfate Adverse Reaction (Unknown, Uncoded 01/26/25 13:46) nausea HPI HPI Comments History of Present Illness Details History of Present Illness - The patient is a 69-year-old female presenting with muscular pain and shortness of breath. - The pain has persisted for one week, primarily under the right shoulder blade, with occasional radiating to the hips and middle back. - Described as sharp and bruising in nature, and is worsened by specific movements and sitting positions. - Pain scale peaks at 8/10, varying in intensity throughout the day. - Patient attributes onset to reaching for an item on a high shelf at [email or web address], which caused her pain after. - Shortness of breath is intermittent and presents along with pain episodes. - Initial self-treatment with ibuprofen was replaced by Tylenol, with inadequate relief. - She denies CP, SOB, abd pain, n/v/d, hematuria, dysuria, rashes, saddle anesthesia, numbness, tingling, or incontinence. Physical Exam General: Cooperative, healthy appearing, comfortable, no acute distress and well developed Orientation: Patient oriented x3 Respiratory: Normal respiratory effort with some shortness of breath noted. Clear to auscultation bilaterally Cardiovascular: Regular rate and rhythm. Normal S1 and S2 GI: Normal to inspection. Soft to palpation and nontender. No CTA tenderness noted. Skin: No rashes or lesions noted Neuro: Patient oriented x3. Sensation intact. Extremities: FROM of the shoulders bilaterally. Musculoskeletal: FROM of spine. Flexion and extension intact. No midline tenderness noted. No step offs noted. TTP of the right lateral thoracic muscles. Strength is 5/5 on the UE bilaterally. Hand account general manager is intact. Patient was informed and verbally consented to the use of an ambient scribe for clinic note documentation during this visit. [facility] Medical History Sinus pressure Hx of TIA (transient ischemic attack) and stroke Osteoporosis of lumbar spine Vitamin B12 deficiency History of fracture of foot Chronic GERD Generalized anxiety disorder Dyslipidemia Surgical History Hx of colonoscopy Family History Father Coronary artery disease Brother Coronary artery disease Paternal Grandmother Breast cancer Social History Housing: House Alcohol intake: current Patient Tobacco Use Status: Current everyday Tobacco user Cigarettes Per Day: 2 e-Cigarette/Vaping Use: Never Used Second Hand Smoke Exposure: No service: No Current occupational status: retired Cognitive needs: No Hearing needs: No Vision needs: No Review of Systems Const All systems reviewed & are unremarkable except as noted in HPI and below Physical Exam Vital Signs: Last Vital Signs Temp 98.1 F 01/26/25 13:45 Pulse 71 01/26/25 13:45 BP 142/74 H 01/26/25 13:45 Pulse Ox 95 01/26/25 13:45 Oxygen Delivery Method Room Air 01/26/25 13:45 BMI result Body Mass Index 25.0 Results AMB Urinalysis, Automated UA Leukoctes 0 Yunior/uL Last Edit by Rachel Reza CMA on 01/26/25 14:33 UA Nitrite Negative Last Edit by Rachel Reza CMA on 01/26/25 14:33 UA Urobilinogen 0.2 mg/dL Last Edit by Rachel Reza CMA on 01/26/25 14:33 UA Protein 0 mg/dL Last Edit by Rachel Reza CMA on 01/26/25 14:33 UA pH 6.0 Last Edit by Rachel Reza CMA on 01/26/25 14:33 UA Blood 0 Elvis/uL Last Edit by Rachel Reza CMA on 01/26/25 14:33 UA Specific Story 1.005 Last Edit by Rachel Reza CMA on 01/26/25 14:33 UA Ketone Negative Last Edit by Rachel Reza CMA on 01/26/25 14:33 UA Bilirubin 0 mg/dL Last Edit by Rachel Reza CMA on 01/26/25 14:33 UA Glucose 0 mg/dL Last Edit by Rachel Reza CMA on 01/26/25 14:33 Assessment & Plan Assessment & Plan (1) Mid back pain: Code(s): M54.9 - Dorsalgia, unspecified Plan Most likely strain vs spasm UA in the office today Plan - Activities as tolerated. - Recommend a muscle relaxant at night to reduce muscle tension and pain. - Prescribed a once-daily analgesic for pain management, emphasizing its non-addictive properties. - A heating pad is advised to reduce muscle stiffness. - Advise the patient to avoid activities that may worsen the condition. Orders: Orders AMB Urinalysis Automated Today M54.50 - Low back pain, unspecified Medications: New cyclobenzaprine Take 1-2 tablets every 8 hours as needed for muscle spasms 5 mg PO Q8H PRN 20 tabs 0RF Muscle Spasm meloxicam 7.5 mg PO DAILY 10 tabs 0RF Coding Level of Care Code Est Pt Level 4 (41123) Diagnoses Mid back pain M54.9
--- OUTSIDE RECORDS SUMMARY | 2025-01-26 16:17 | XMS_ITS | Clinical Summary ---
Author Organization [facility] 299 [facility] Address [address] [place] [address] Phone Care Team Providers Care Manager Mental Health Name Role Phone Kalina Palacios MD Primary [...] Description 11/02/2024 Telephone Gastroenterology - [address] [phone] Bernie Perez MD 10/31/2024 Telephone Gastroenterology - [address] [phone] Nohemi Orozco [place] 10/28/2024 Telephone Gastroenterology - [address] [phone] Carol Nuñez PA 10/28/2024 Telephone Gastroenterology - [address] [phone] Nohemi Orozco [place] 10/27/2024 3:36 PM EST - 10/27/2024 11:59 PM EST Hospital Encounter [facility] Xray [address] [place] [id number] Other constipation Discharge Disposition: Home or Self Care 10/27/2024 3:00 PM EST Lab Draw Station - [address] [place] [phone] Abdominal distension; Other fatigue; Difficulty eating due to fatigue 10/27/2024 2:40 PM EST Office Visit Gastroenterology - 299 [facility] 299 [facility] [address] [place] [phone] Carol Nuñez PA Abdominal distension (Primary Dx); [...] pattern. Constipation has resolved since 05/17/2024. Code 11839 -------- FINAL REPORT -------- Dictated By: Anderson Pope Dictated Date: 10/28/2024 09:11 ET Assigned Physician: Anderson Pope Reviewed and Electronically Signed By: Anderson Pope Signed Date: 10/28/2024 09:12 ET Workstation ID: [id number] Transcribed By: Self Edit Transcribed Date: 10/28/2024 [...] gas pattern. Constipation has resolvedsince 05/17/2024. Code 84076 -------- FINAL REPORT -------- Dictated By: Anderson Pope Dictated Date: 10/28/2024 09:11 ET Assigned Physician: Anderson Pope Reviewed and Electronically Signed By: Anderson Pope Signed Date: 10/28/2024 09:12 ET Workstation ID: [id number] Transcribed By: Self Edit Transcribed Date: 10/28/2024 09:11 ET us Carol ESTEBAN IMG XR PROCEDURES Final Result * (ABNORMAL) Vitamin B12 and folate (10/27/2024 3:31 PM EST) [facility] Vitamin B-12 944(H) 250 - 900 pcg/mL LAB CHEMISTRY METHOD 10/27/2024 5:25 PM EST [facility] Folate >20.0(H) 2.8 - 17.0 ng/ml LAB CHEMISTRY METHOD 10/27/2024 5:25 PM EST [facility] Blood Venous blood specimen / Unknown Venipuncture / Unknown 10/27/2024 3:31 PM EST 10/27/2024 4:20 PM EST us Carol ESTEBAN LAB BLOOD ORDERABLES Final Resu lt [facility] [address] [place] [address], * CBC auto differential (10/27/2024 3:31 PM EST) [facility] WBC 8.5 4.8 - 10.8 K/[facility] LAB HEMETOLOGY METHOD 10/27/2024 4:33 PM [facility] RBC 4.40 3.80 - 4.80 M/mcL LAB HEMETOLOGY METHOD 10/27/2024 4:33 PM [facility] Hemoglobin 13.4 11.5 - 16.0 g/dL LAB HEMETOLOGY METHOD 10/27/2024 4:33 PM [facility] LAB Hematocrit 40.9 35.0 - 47.0 % LAB HEMETOLOGY METHOD 10/27/2024 4:33 PM [facility] LAB MCV 93.8 79.0 - 98.0 FL LAB HEMETOLOGY METHOD 10/27/2024 4:33 PM [facility] LAB MCH 30.7 27.0 - 32.0 pcg LAB HEMETOLOGY METHOD 10/27/2024 4:33 PM [facility] MCHC 32.8 32.0 - 37.0 g/dL LAB HEMETOLOGY METHOD 10/27/2024 4:33 PM [facility] RDW 12.9 11.0 - 15.0 % LAB HEMETOLOGY METHOD 10/27/2024 4:33 PM [facility] Platelets 268 130 - 400 K/[facility] LAB HEMETOLOGY METHOD 10/27/2024 4:33 PM [facility] MPV 10.7 7.0 - 11.0 FL LAB HEMETOLOGY METHOD 10/27/2024 4:33 PM [facility] NRBC 0.0 <1.0 % LAB HEMETOLOGY METHOD 10/27/2024 4:33 PM [facility] NRBC Absolute 0.00 <0.10 K/[facility] LAB HEMETOLOGY METHOD 10/27/2024 4:33 PM [facility] Neutrophils Relative 57.9 % LAB HEMETOLOGY METHOD 10/27/2024 4:33 PM [facility] Lymphocytes Relative 33.8 % LAB HEMETOLOGY METHOD 10/27/2024 4:33 PM [facility] Monocytes Relative 7.1 % LAB HEMETOLOGY METHOD 10/27/2024 4:33 PM [facility] Eosinophils Relative 0.6 % LAB HEMETOLOGY METHOD 10/27/2024 4:33 PM [facility] Basophils Relative 0.4 % LAB HEMETOLOGY METHOD 10/27/2024 4:33 PM [facility] Immature Granulocytes Relative 0.2 % LAB HEMETOLOGY METHOD 10/27/2024 4:33 PM [facility] Neutrophils Absolute 4.90 1.50 - 7.00 K/mcL LAB HEMETOLOGY METHOD 10/27/2024 4:33 PM [facility] Lymphocytes Absolute 2.86 1.00 - 5.00 K/mcL LAB HEMETOLOGY METHOD 10/27/2024 4:33 PM [facility] Monocytes Absolute 0.60 0.20 - 1.00 K/mcL LAB HEMETOLOGY METHOD 10/27/2024 4:33 PM [facility] Eosinophils Absolute 0.05 0.00 - 0.50 K/mcL LAB HEMETOLOGY METHOD 10/27/2024 4:33 PM [facility] Basophils Absolute 0.03 0.00 - 0.20 K/mcL LAB HEMETOLOGY METHOD 10/27/2024 4:33 PM [facility] Immature Granulocytes Absolute 0.02 0.00 - 0.03 K/mcL LAB HEMETOLOGY METHOD 10/27/2024 4:33 PM [facility] Blood Venous blood specimen / Unknown Venipuncture / Unknown 10/27/2024 3:31 PM EST 10/27/2024 4:21 PM EST us Carol Nuñez PA LAB BLOOD ORDERABLES Final Resu lt [facility] [address] [place] [address], [place] [phone] * Iron and TIBC (10/27/2024 3:31 PM EST) Iron 70 40 - 150 mcg/dL LAB CHEMISTRY METHOD 10/27/2024 5:03 PM EST [facility] TIBC 345 250 - 450 mcg/dL LAB CHEMISTRY METHOD 10/27/2024 5:03 PM EST [facility] Iron Saturation 20 15 - 50 % LAB CHEMISTRY METHOD 10/27/2024 5:03 PM EST [facility] Blood Venous blood specimen / Unknown Venipuncture / Unknown 10/27/2024 3:31 PM EST 10/27/2024 4:20 PM EST Carol Nuñez SD LAB BLOOD ORDERABLES Final Resu lt Performing Organization Address City/[facility]/ZIP Co de Phone Number [facility] [address] [place] [address], [place] [phone] * Ferritin (10/27/2024 3:31 PM EST) Ferritin 89 8 - 252 ng/mL LAB CHEMISTRY METHOD 10/27/2024 5:03 PM EST [facility] Blood Venous blood specimen / Unknown Venipuncture / Unknown 10/27/2024 3:31 PM EST 10/27/2024 4:20 PM EST us Carol Nuñez PA LAB BLOOD ORDERABLES Final Resu lt [facility] [address] [place] [address], [place] [phone] * Comprehensive metabolic panel (10/27/2024 3:31 PM EST) Sodium 137 133 - 145 mmol/L LAB CHEMISTRY METHOD 10/27/2024 5:03 PM [facility] Potassium 3.9 3.5 - 5.5 mmol/L LAB CHEMISTRY METHOD 10/27/2024 5:03 PM [facility] Chloride 103 96 - 110 mmol/L LAB CHEMISTRY METHOD 10/27/2024 5:03 PM [facility] CO2 26 21 - 32 mmol/L LAB CHEMISTRY METHOD 10/27/2024 5:03 PM [facility] Anion Gap 8 3 - 11 LAB CHEMISTRY METHOD 10/27/2024 5:03 PM [facility] Glucose 73 70 - 100 mg/dL LAB CHEMISTRY METHOD 10/27/2024 5:03 PM [facility] BUN 12 5 - 25 mg/dL LAB CHEMISTRY METHOD 10/27/2024 5:03 PM [facility] Creatinine 0.85 0.50 - 1.10 mg/dL LAB CHEMISTRY METHOD 10/27/2024 5:03 PM [facility] eGFR 75 >=60 mL/min/1. 73m2 LAB CHEMISTRY METHOD 10/27/2024 5:03 PM [facility] Comment:Calculation based on the??Chronic Kidney Disease Epidemiology Collaboration (CKD-EPI) equation refit??without adjustment for race. BUN/Creatinine Ratio 14.1 LAB CHEMISTRY METHOD 10/27/2024 5:03 PM [facility] Calcium 9.8 8.5 - 10.5 mg/dL LAB CHEMISTRY METHOD 10/27/2024 5:03 PM [facility] AST (SGOT) 20 10 - 42 unit/L LAB CHEMISTRY METHOD 10/27/2024 5:03 PM [facility] ALT (SGPT) 32 10 - 60 unit/L LAB CHEMISTRY METHOD 10/27/2024 5:03 PM [facility] Alkaline Phosphatase 71 42 - 121 unit/L LAB CHEMISTRY METHOD 10/27/2024 5:03 PM EST [facility] Total Protein 7.2 6.0 - 8.0 g/dL LAB CHEMISTRY METHOD 10/27/2024 5:03 PM EST [facility] Albumin 4.1 3.2 - 5.0 g/dL LAB CHEMISTRY METHOD 10/27/2024 5:03 PM EST [facility] Total Bilirubin 0.4 0.0 - 1.4 mg/dL LAB CHEMISTRY METHOD 10/27/2024 5:03 PM EST [facility] Blood Venous blood specimen / Unknown Venipuncture / Unknown 10/27/2024 3:31 PM EST 10/27/2024 4:20 PM EST us Carol ESTEBAN LAB BLOOD ORDERABLES Final Resu lt [facility] [address] [place] [address], [place] [phone] from Last 3 Months Insurance [employer] - [place] MEDICARE ADVANTAGE Care Teams Manager Mental Health Relationship Specialty Start Date End Date Kalina Palacios MD [address] [place] [phone] PCP - General Internal Medicine 10/27/24
== END 2025-01-26 14:55 | disposition home or self-care (01) ==
PROVIDERS: PCP Internal Medicine; Visit Provider Physician Assistant Medical
DX: M54.50 Low back pain, unspecified (principal)

== ENCOUNTER → 2025-01-26 13:46 | Outpatient (BNVA) | payer MEDICARE, SELFPAY | PROVIDERS: PCP Internal Medicine | DX: M54.9 Dorsalgia, unspecified (principal) | CPT/HCPCS: 81003; 99212 ==

== ENCOUNTER 2025-02-22 11:20 | Outpatient (AMB) | payer MEDICARE, SELFPAY ==
--- NOTE | 2025-02-22 11:47 | AM.OFFVISNUR ---
Intake Visit Reasons: b-12 Allergies Codeine Sulfate Adverse Reaction (Unknown, Uncoded 01/26/25 13:46) nausea Nursing Note Pt came into the office for Vitmain B12 injection to right deltoid. Pt tolerated well. Office Meds cyanocobalamin (vitamin B-12) 1,000 mcg/mL injection solution Performing Provider: Kalina Palacios MD [place] [facility] [place] Administered by: Elana Colon on 02/22/25 11:48 Dose Route Admin Location Dispensed Lot Number Expiration Date [facility] Seaman Officer 1,000 mcg IM right deltoid 1 mL [id number] 07/13/26 56713-483-46 [employer] mobile Total Dispensed Waste 1 mL 0 % Assessment & Plan Assessment & Plan Orders: Orders AMB Vitamin B12 Injection Patient Supplied Today E53.8 - Deficiency of other specified B group vitamins Coding
--- OUTSIDE RECORDS SUMMARY | 2025-02-22 12:08 | XMS_ITS | Clinical Summary ---
Author Organization [facility] 299 [facility] Address [address] [place] [address] Phone Care Team Providers Care Manager Architecture Name Role Phone Kalina Palacios MD Primary [...] 10/27 Anxiety and depression 10/27/2024 Hypothyroid 10/27/2024 Surgical History Surgery Date Site/Laterality Comments ESOPHAGOGASTRODUODENOSCOPY [...] 2024 05/18/2024, 06/01/2023, 07/30/2021, Additional history exists Influenza Vaccine (#1) 2025 , 06/01/2022, 06/19/2021, Additional history exists Hypertension/CHF/CAD Annual BMP Blood Test 10/27/2025 10/27/2024 DTaP,Tdap,and Td Vaccines (2 - Td or Tdap) 09/22/2026 09/22/2016 RSV Immunization Adult Patients (1 - 1-dose 75+ series) 02/19/2032 Zoster Vaccines Completed 06/02/2022, 08/24, 05/31/2018, Additional history exists Pneumococcal Vaccine: 50+ Years Completed 04/21/2023 HIB Vaccines Aged Out No longer eligi [...] Procedure Name Priority Date/Time Associated Diagnosis Comments COMPREHENSIVE METABOLIC PANEL Routine 10/27/2024 3:31 PM EST Abdominal distension Other fatigue from Last 3 Months or Most Recently Relevant to Health Maintenance Results * Comprehensive metabolic panel (10/27/2024 3:31 PM [...] [facility] Comment:Calculation based on the Chronic Kidney Disease Epidemiology Collaboration (CKD-EPI) equation refit without adjustment for race. BUN/Creatinine Ratio 14.1 LAB [...] PM [facility] Alkaline Phosphatase 71 42 - 121 unit/L LAB CHEMISTRY METHOD 10/27/2024 5:03 PM [facility] Total Protein 7.2 6.0 - 8.0 g/dL LAB CHEMISTRY METHOD 10/27/2024 5:03 PM [facility] Albumin 4.1 3.2 [...] ESTEBAN LAB BLOOD ORDERABLES Final Resu lt [facility] [address] [place] [address], from Last 3 Months or Most Recently Relevant to Health Maintenance Insurance [employer] - [place] MEDICARE ADVANTAGE Care Teams Manager Architecture Relationship Specialty Start Date End Date Kalina Palacios MD PCP - General Internal Medicine 10/27/24
== END 2025-02-22 11:51 | disposition home or self-care (01) ==
LOC: HO.HMCC 11:21
PROVIDERS: PCP Internal Medicine; Visit Provider Internal Medicine
DX: E53.8 Deficiency of other specified B group vitamins (principal)

== ENCOUNTER → 2025-02-22 11:20 | Outpatient (BNVA) | payer MEDICARE, SELFPAY | PROVIDERS: PCP Internal Medicine; Visit Provider Internal Medicine | DX: E53.8 Deficiency of other specified B group vitamins (principal) | CPT/HCPCS: 96372; J3420 ==

== ENCOUNTER 2025-03-27 10:51 | Outpatient (AMB) | payer MEDICARE, SELFPAY ==
--- NOTE | 2025-03-27 10:57 | AM.OFFVISNUR ---
Intake Visit Reasons: b12 Allergies Codeine Sulfate Adverse Reaction (Unknown, Uncoded 01/26/25 13:46) nausea Nursing Note Pt came into the office for Vitamin B12 injection to right deltoid. Pt tolerated well. Office Meds cyanocobalamin (vitamin B-12) 1,000 mcg/mL injection solution Performing Provider: Kalina Palacios MD [place] [facility] [place] Administered by: Elana Colon on 03/27/25 10:58 Dose Route Admin Location Dispensed Lot Number Expiration Date [facility] Printing Bindery Assistant 1,000 mcg IM right deltoid 1 mL [id number] 07/13/26 41406-105-70 [employer] Total Dispensed Waste 1 mL 0 % Assessment & Plan Assessment & Plan Orders: Orders AMB Vitamin B12 Injection Patient Supplied Today E53.8 - Deficiency of other specified B group vitamins Coding
--- OUTSIDE RECORDS SUMMARY | 2025-03-27 11:48 | XMS_ITS | Clinical Summary ---
Author Organization [facility] 299 [facility] Address [address] [place] [address] Phone Care Team Providers Care Technical Spec Name Role Phone Kalina Palacios MD Primary [...] Panel) 07/23/2022 Colorectal Cancer Screening: Colonoscopy 07/23/2022 Falls Risk Assessment 07/23/2022 Hepatitis C Screening 07/23/2022 Medicare Annual Wellness Visit 07/23/2022 Osteoporosis Screening (Bone Density Screening) 07/23/2022 Social Influencers of Health Screening 07/23/2022 Depression Screening 08/24/2024 COVID-19 Vaccine ( season) 2024 05/18/2024, 06/01/2023, [...] mmol/L LAB CHEMISTRY METHOD 10/27/2024 5:03 PM [facility] Potassium 3.9 3.5 - 5.5 mmol/L LAB CHEMISTRY METHOD 10/27/2024 5:03 PM [facility] Chloride 103 96 - 110 mmol/L LAB CHEMISTRY METHOD 10/27/2024 5:03 PM [facility] CO2 26 21 - 32 mmol/L LAB CHEMISTRY METHOD 10/27/2024 5:03 PM [facility] Anion Gap 8 3 - 11 LAB CHEMISTRY METHOD 10/27/2024 5:03 PM [facility] Glucose 73 70 - 100 mg/dL LAB CHEMISTRY METHOD 10/27/2024 5:03 PM [facility] BUN 12 5 - 25 mg/dL LAB CHEMISTRY METHOD 10/27/2024 5:03 PM [facility] Creatinine 0.85 0.50 - 1.10 mg/dL LAB CHEMISTRY METHOD 10/27/2024 5:03 PM [facility] eGFR 75 >=60 mL/min/1. 73m2 LAB CHEMISTRY METHOD 10/27/2024 5:03 PM [facility] Comment:Calculation based on the Chronic Kidney Disease Epidemiology Collaboration (CKD-EPI) equation refit without adjustment for race. BUN/Creatinine Ratio 14.1 LAB CHEMISTRY METHOD 10/27/2024 5:03 PM [facility] Calcium 9.8 8.5 - 10.5 mg/dL LAB CHEMISTRY METHOD 10/27/2024 5:03 PM [facility] AST (SGOT) 20 10 - 42 unit/L LAB CHEMISTRY METHOD 10/27/2024 5:03 PM [facility] ALT (SGPT) 32 10 - 60 unit/L LAB CHEMISTRY METHOD 10/27/2024 5:03 PM [facility] Alkaline Phosphatase 71 42 - 121 unit/L LAB CHEMISTRY METHOD 10/27/2024 5:03 PM [facility] Total Protein 7.2 6.0 - 8.0 g/dL LAB CHEMISTRY METHOD 10/27/2024 5:03 PM [facility] Albumin 4.1 3.2 - 5.0 g/dL LAB CHEMISTRY METHOD 10/27/2024 5:03 PM [facility] Total Bilirubin 0.4 0.0 - 1.4 mg/dL LAB CHEMISTRY METHOD 10/27/2024 5:03 PM [facility] Blood Venous blood specimen / Unknown Venipuncture / Unknown 10/27/2024 3:31 PM EST 10/27/2024 4:20 PM EST us Carol ESTEBAN LAB BLOOD ORDERABLES Final Resu lt [facility] [address] [place] [address], from Last 3 Months or Most Recently Relevant to Health Maintenance Insurance [employer] - [place] MEDICARE ADVANTAGE Care Teams Technical Spec Relationship Specialty Start Date End Date Kalina Palacios MD PCP - General Internal Medicine 10/27/24
== END 2025-03-27 11:18 | disposition home or self-care (01) ==
LOC: HO.HMCC 10:51
PROVIDERS: PCP Internal Medicine; Visit Provider Internal Medicine
DX: E53.8 Deficiency of other specified B group vitamins (principal)

== ENCOUNTER → 2025-03-27 10:51 | Outpatient (BNVA) | payer MEDICARE, SELFPAY | PROVIDERS: PCP Internal Medicine; Visit Provider Internal Medicine | DX: E53.8 Deficiency of other specified B group vitamins (principal) | CPT/HCPCS: 96372; J3420 ==

== ENCOUNTER 2025-04-04 14:27 | Outpatient (REF) | payer MEDICARE, SELFPAY ==
--- OUTSIDE RECORDS SUMMARY | 2025-04-04 15:25 | XMS_ITS | Clinical Summary ---
Author Organization [facility] 299 [facility] Address [address] [place] [address] Phone Care Team Providers Care Computer Specialist Name Role Phone Kalina Palacios MD Primary [...] mmol/L LAB CHEMISTRY METHOD 10/27/2024 5:[address] [facility] Potassium 3.9 3.5 - 5.5 mmol/L LAB CHEMISTRY METHOD 10/27/2024 5:[address] [facility] Chloride 103 96 - 110 mmol/L LAB CHEMISTRY METHOD 10/27/2024 5:[address] [facility] CO2 26 21 - 32 mmol/L LAB CHEMISTRY METHOD 10/27/2024 5:[address] [facility] Anion Gap 8 3 - 11 LAB CHEMISTRY METHOD 10/27/2024 5:[address] [facility] Glucose 73 70 - 100 mg/dL LAB CHEMISTRY METHOD 10/27/2024 5:[address] [facility] BUN 12 5 - 25 mg/dL LAB CHEMISTRY METHOD 10/27/2024 5:[address] [facility] Creatinine 0.85 0.50 - 1.10 mg/dL LAB CHEMISTRY METHOD 10/27/2024 5:[address] [facility] eGFR 75 >=60 mL/min/1. 73m2 LAB CHEMISTRY METHOD 10/27/2024 5:[address] [facility] Comment:Calculation based on the Chronic Kidney Disease Epidemiology Collaboration (CKD-EPI) equation refit without adjustment for race. BUN/Creatinine Ratio 14.1 LAB CHEMISTRY METHOD 10/27/2024 5:[address] [facility] Calcium 9.8 8.5 - 10.5 mg/dL LAB CHEMISTRY METHOD 10/27/2024 5:[address] [facility] AST (SGOT) 20 10 - 42 unit/L LAB CHEMISTRY METHOD 10/27/2024 5:[address] [facility] ALT (SGPT) 32 10 - 60 unit/L LAB CHEMISTRY METHOD 10/27/2024 5:[address] [facility] Alkaline Phosphatase 71 42 - 121 unit/L LAB CHEMISTRY METHOD 10/27/2024 5:[address] [facility] Total Protein 7.2 6.0 - 8.0 g/dL LAB CHEMISTRY METHOD 10/27/2024 5:[address] [facility] Albumin 4.1 3.2 - 5.0 g/dL LAB CHEMISTRY METHOD 10/27/2024 5:[address] [facility] Total Bilirubin 0.4 0.0 - 1.4 mg/dL LAB CHEMISTRY METHOD 10/27/2024 5:[address] [facility] Blood Venous blood specimen / Unknown Venipuncture / Unknown 10/27/2024 3:31 PM EST 10/27/2024 4:20 PM EST us Carol ESTEBAN LAB BLOOD ORDERABLES Final Resu lt [facility] [address] [place] [address], from Last 3 Months or Most Recently Relevant to Health Maintenance Insurance [employer] [place]ICARE AD[place] Care Teams Computer Specialist Relationship Specialty Start Date End Date Kalina Palacios MD PCP - General Internal Medicine 10/27/24
== END 2025-04-04 14:28 | disposition home or self-care (01) ==
LOC: HO.MAMMO 14:27
PROVIDERS: PCP Internal Medicine; Visit Provider Internal Medicine
DX: Z12.31 Encounter for screening mammogram for malignant neoplasm of breast (principal)
CPT/HCPCS: 77063; 77067

== ENCOUNTER → 2025-04-04 15:00 | Outpatient (BNV) | payer MEDICARE, SELFPAY | PROVIDERS: PCP Internal Medicine; Visit Provider Radiology Body Imaging | DX: Z12.31 Encounter for screening mammogram for malignant neoplasm of breast (principal) | CPT/HCPCS: 77063; 77067 ==

== ENCOUNTER 2025-04-27 10:52 | Outpatient (AMB) | payer MEDICARE, SELFPAY ==
--- NOTE | 2025-04-27 11:11 | AM.OFFVISNUR ---
Intake Visit Reasons: B-12 shot Allergies Codeine Sulfate Adverse Reaction (Unknown, Uncoded 01/26/25 13:46) nausea Nursing Note Pt came into the office for Vitamin B12 injection to right deltoid. Pt tolerated well. Office Meds cyanocobalamin (vitamin B-12) 1,000 mcg/mL injection solution Performing Provider: Kalina Palacios MD Performing Location: [facility] [place] Administered by: Elana Colon on 04/27/25 11:11 Dose Route Admin Location Dispensed Lot Number Expiration Date [facility] Farm Implement Mechanic 1,000 mcg IM right deltoid 1 mL [id number] 07/13/26 52077-588-28 [employer] Total Dispensed Waste 1 mL 0 % Assessment & Plan Assessment & Plan Orders: Orders AMB Vitamin B12 Injection Patient Supplied Today E53.8 - Deficiency of other specified B group vitamins Coding
--- OUTSIDE RECORDS SUMMARY | 2025-04-27 12:30 | XMS_ITS | Clinical Summary ---
Author Organization [facility] 299 [facility] Address [address] [place] [address] Phone Care Team Providers Care Cloth Carrier Name Role Phone Kalina Palacios MD Primary Care Provider [phone] Allergies Active Allergy Reactions Criticality Noted Date [...] mmol/L LAB CHEMISTRY METHOD 10/27/2024 5:03 PM [facility] Potassium 3.9 3.5 - 5.5 mmol/L LAB CHEMISTRY METHOD 10/27/2024 5:03 PM [facility] Chloride 103 96 - 110 mmol/L LAB CHEMISTRY METHOD 10/27/2024 5:03 PM [facility] CO2 26 21 - 32 mmol/L LAB CHEMISTRY METHOD 10/27/2024 5:03 PM [facility] Anion Gap 8 3 - 11 LAB CHEMISTRY METHOD 10/27/2024 5:03 PM [facility] Glucose 73 70 - 100 mg/dL LAB CHEMISTRY METHOD 10/27/2024 5:03 PM [facility] BUN 12 5 - 25 mg/dL LAB CHEMISTRY METHOD 10/27/2024 5:03 PM [facility] Creatinine 0.85 0.50 - 1.10 mg/dL LAB CHEMISTRY METHOD 10/27/2024 5:03 PM [facility] eGFR 75 >=60 mL/min/1. 73m2 LAB CHEMISTRY METHOD 10/27/2024 5:03 PM [facility] Comment:Calculation based on the Chronic Kidney Disease Epidemiology Collaboration (CKD-EPI) equation refit without adjustment for race. BUN/Creatinine Ratio 14.1 LAB CHEMISTRY METHOD 10/27/2024 5:03 PM [facility] Calcium 9.8 8.5 - 10.5 mg/dL LAB CHEMISTRY METHOD 10/27/2024 5:03 PM [facility] AST (SGOT) 20 10 - 42 unit/L LAB CHEMISTRY METHOD 10/27/2024 5:03 PM [facility] ALT (SGPT) 32 10 - 60 unit/L LAB CHEMISTRY METHOD 10/27/2024 5:03 PM [facility] Alkaline Phosphatase 71 42 - 121 unit/L LAB CHEMISTRY METHOD 10/27/2024 5:03 PM [facility] Total Protein 7.2 6.0 - 8.0 g/dL LAB CHEMISTRY METHOD 10/27/2024 5:03 PM [facility] Albumin 4.1 3.2 - 5.0 g/dL LAB CHEMISTRY METHOD 10/27/2024 5:03 PM [facility] Total Bilirubin 0.4 0.0 - 1.4 mg/dL LAB CHEMISTRY METHOD 10/27/2024 5:03 PM [facility] Blood Venous blood specimen / Unknown Venipuncture / Unknown 10/27/2024 3:31 PM EST 10/27/2024 4:20 PM EST us Carol ESTEBAN LAB BLOOD ORDERABLES Final Resu lt [facility] [address] [place] [address], from Last 3 Months or Most Recently Relevant to Health Maintenance Insurance [employer] [place]IC[place] AD[place]AGE Care Teams Cloth Carrier Relationship Specialty Start Date End Date Kalina Palacios MD PCP - General Internal Medicine 10/27/24
== END 2025-04-27 12:47 | disposition home or self-care (01) ==
LOC: HO.HMCC 10:53
PROVIDERS: PCP Internal Medicine; Visit Provider Internal Medicine
DX: E53.8 Deficiency of other specified B group vitamins (principal)

== ENCOUNTER → 2025-04-27 10:52 | Outpatient (BNVA) | payer MEDICARE, SELFPAY | PROVIDERS: PCP Internal Medicine; Visit Provider Internal Medicine | DX: E53.8 Deficiency of other specified B group vitamins (principal) | CPT/HCPCS: 96372; J3420 ==

== ENCOUNTER 2025-05-01 13:08 | Outpatient (AMB) | payer MEDICARE, SELFPAY ==
--- NOTE | 2025-05-01 13:14 | MHC.OFFVIS ---
Vital Signs 05/01/25 13:18 Height 5 ft Weight 131 lb 6.328 oz BMI 25.7 BP 116/64 Blood Pressure Location Lt brachial Position Sitting Pulse 61 Pulse Source Pulse Oximeter Intake Visit Reasons: f/u osteoporosis Intake Note: Patient present today for Osteoporosis follow up. Business Systems Lead Required: No Accompanied by: Self / Same As Patient Allergies Codeine Sulfate Adverse Reaction (Unknown, Uncoded 05/01/25 13:18) nausea Medication List - Last Reconciled 05/01/25 by Jason Delcid MD alprazolam 0.5 mg PO DAILY PRN aspirin 81 mg PO DAILY cholecalciferol (vitamin D3) 50 mcg PO DAILY cyanocobalamin (vitamin B-12) 1,000 mcg subcut Q4W cyclobenzaprine 5 mg PO Q8H PRN cyclobenzaprine 5 mg PO DAILY PRN famotidine 20 mg PO DAILY PRN fluticasone propionate 50 mcg/actuation (Flonase Allergy Relief) 1 spray intranasal BID levothyroxine 50 mcg PO DAILY linaclotide (Linzess) 72 mcg PO DAILY meclizine 25 mg PO BID PRN meloxicam 7.5 mg PO DAILY omeprazole 20 mg PO DAILY ondansetron HCl 4 mg PO DAILY PRN romosozumab-aqqg (Evenity) 210 mg (2.34 mL) subcut .monthly rosuvastatin 40 mg PO DAILY HPI Comments Details: 70 YO Female is seen in consultation at the request of PCP for Osteoporosis. First diagnosed in this yr . Not Received treatment in the past No history of pathologic fracture or ONJ. Has several servings of dietary calcium per day in the form of broccoli, cottage cheese . Not Takes Calcium supplement . Takes ? IU of Vitamin D daily. Takes PPI, no anticoagulant, antiepileptic or glucocorticoid medication. 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 UTD on dental cleanings and sees dentist every 6 months. No planned upcoming dental work or extractions. 3-4 cigarettes/day DXA dated 07/20/24:FINDINGS: LEFT FEMUR, NECK: BMD 0.724 g/cm2, Z-score -0.6, T-score -2.3, osteopenia. LEFT FEMUR, TOTAL: BMD 0.740 g/cm2, Z-score -0.7, T-score -2.1, osteopenia. AP SPINE L1-L4: BMD 0.822 g/cm2, Z-score -1.2, T-score -3.0, osteoporosis. IDENTIFIED RISK FACTORS: Menopause, low calcium intake. HISTORY OF FRACTURE: None listed. MEDICATIONS: None listed. MM/XR DEXA axial skeleton IMPRESSION: 1. DIAGNOSIS: Osteoporosis based on the lowest T-score value of -3.0 in the lumbar spine applying World Health Organization criteria. Labs: Secondary workup was negative The patient is a 70-year-old female presenting with osteoporosis management concerns. She has a T-score of negative 3, indicating low bone density, and has been considering treatment options such as Evenity, Forteo, and Tymlos. The patient has not experienced any fractures and has been taking calcium and vitamin D3 supplements. The patient has a history of a transient ischemic attack (TIA) approximately 8 years ago, which has influenced her treatment considerations due to concerns about cardiovascular risks associated with certain osteoporosis medications. The patient reports tobacco use, having started smoking during the COVID- pandemic. She acknowledges the negative impact of smoking on her health and is advised to quit. The patient has gastroesophageal reflux disease (GERD), which affects her medication choices, particularly concerning Fosamax due to its potential to exacerbate reflux symptoms. The patient has prediabetes, with a fasting blood sugar level of 115 mg/dL noted in August. - Calcium supplements: Taken for bone health. - Vitamin D3 supplements: Taken for bone health. [facility] Medical History Sinus pressure Hx of TIA (transient ischemic attack) and stroke Osteoporosis of lumbar spine Vitamin B12 deficiency History of fracture of foot Chronic GERD Generalized anxiety disorder Dyslipidemia Surgical History Hx of colonoscopy Family History Father Coronary artery disease Brother Coronary artery disease Paternal Grandmother Breast cancer Social History Housing: House Alcohol intake: current Patient Tobacco Use Status: Current everyday Tobacco user Cigarettes Per Day: 2 e-Cigarette/Vaping Use: Never Used Second Hand Smoke Exposure: No service: No Current occupational status: retired Cognitive needs: No Hearing needs: No Vision needs: No Physical Exam Vital Signs: Last Vital Signs Pulse 61 05/01/25 13:18 BP 116/64 05/01/25 13:18 BMI result Body Mass Index 25.7 Assessment & Plan Assessment & Plan (1) Osteoporosis of lumbar spine: Code(s): M81.0 - Age-related osteoporosis without current pathological fracture Category: Medical Plan: This is a 69-year-old white female with a history of osteoporosis. Secondary causes have been ruled out. Patient was holding off on starting Evenity 1. Osteoporosis The patient has a T-score of negative 3, indicating osteoporosis. Treatment options discussed include Evenity, Forteo, and Tymlos, with consideration of cardiovascular risks due to a history of TIA. Prolia was chosen as the preferred treatment due to its safety profile concerning cardiovascular risks. The patient will continue calcium and vitamin D3 supplementation. 2. Transient Ischemic Attack (TIA) The patient experienced a TIA approximately 8 years ago. This history influences the choice of osteoporosis treatment due to potential cardiovascular risks associated with certain medications. 3. Tobacco Use The patient started smoking during the COVID-19 pandemic. She is advised to quit smoking to improve overall health and reduce cardiovascular risk. 4. Gastroesophageal Reflux Disease (GERD) The patient's GERD affects medication choices, particularly avoiding Fosamax due to its potential to exacerbate reflux symptoms. 5. Prediabetes The patient has a fasting blood sugar level of 115 mg/dL, indicating prediabetes. She is advised to follow up with her primary care physician for further management. During the visit, we discussed various osteoporosis treatment options, including Evenity, Forteo, and Tymlos, considering the patient's history of TIA and the associated cardiovascular risks. We decided on Prolia due to its favorable safety profile. I emphasized the importance of quitting smoking to reduce cardiovascular risk and improve overall health. We also discussed the patient's GERD and its impact on medication choices, particularly avoiding Fosamax. The patient was advised to follow up with her primary care physician regarding her prediabetes and to continue calcium and vitamin D3 supplementation. The patient had an opportunity to ask questions regarding treatment plan. The patient expressed understanding and agreement with the above treatment plan. Patient was informed and verbally consented to the use of an ambient scribe for clinic note documentation during this visit. Orders: Orders Calcium 1 Week M81.0 - Age-related osteoporosis without current pathological fracture Basic Metabolic Panel 1 Week M81.0 - Age-related osteoporosis without current pathological fracture Albumin Level 1 Week M81.0 - Age-related osteoporosis without current pathological fracture Coding Level of Care Code Est Pt Level 3 (84444) Diagnoses Osteoporosis of lumbar spine M81.0
[2025-05-01 13:18] VITALS: BP 116/64; PULSE 61; BMI 25.7
--- OUTSIDE RECORDS SUMMARY | 2025-05-01 15:33 | XMS_ITS | Clinical Summary ---
Author Organization [facility] 299 [facility] Address [address] [place] [address] Phone Care Team Providers Care Senior Clinician Name Role Phone Kalina Palacios MD Primary [...] Depression Screening 08/24/2024 COVID-19 Vaccine ( season) 2025 05/18/2024, 06/01/2023, 07/30/2021, Additional history exists Influenza [...] ESTEBAN LAB BLOOD ORDERABLES Final Resu lt [facility] [address] [place] [address], from Last 3 Months or Most Recently Relevant to Health Maintenance Insurance [employer] - [place] MEDICARE ADVANTAGE Care Teams Senior Clinician Relationship Specialty Start Date End Date Kalina Palacios MD PCP - General Internal Medicine 10/27/24
== END 2025-05-01 13:55 | disposition home or self-care (01) ==
LOC: HO.ENCR 13:09
PROVIDERS: PCP Internal Medicine; Visit Provider Internal Medicine Endocrinology, Diabetes & Metabolism
DX: M81.0 Age-related osteoporosis without current pathological fracture (principal)
CPT/HCPCS: 99213

== ENCOUNTER → 2025-05-01 13:08 | Outpatient (BNVA) | payer MEDICARE, SELFPAY | PROVIDERS: PCP Internal Medicine; Visit Provider Internal Medicine Endocrinology, Diabetes & Metabolism | DX: M81.0 Age-related osteoporosis without current pathological fracture (principal) | CPT/HCPCS: 99212 ==

== ENCOUNTER 2025-05-25 10:47 | Outpatient (AMB) | payer MEDICARE, SELFPAY ==
--- NOTE | 2025-05-25 11:10 | AM.OFFVISNUR ---
Intake Visit Reasons: B-12 shot Allergies Codeine Sulfate Adverse Reaction (Unknown, Uncoded 05/01/25 13:18) nausea Nursing Note Pt came in today, Vitamin B12 injection to right deltoid. Pt tolerated well. Office Meds cyanocobalamin (vitamin B-12) 1,000 mcg/mL injection solution Performing Provider: Kalina Palacios MD Performing Location: [facility] Adult Primary Care-[facility] Administered by: Elana Colon on 05/25/25 11:11 Dose Route Admin Location Dispensed Lot Number Expiration Date [facility] House Decorator 1,000 mcg IM right deltoid 1 mL [id number] 06/12/27 46752-133-20 [employer] Total Dispensed Waste 1 mL 0 % Assessment & Plan Assessment & Plan Orders: Orders AMB Vitamin B12 Injection Patient Supplied Today E53.8 - Deficiency of other specified B group vitamins Coding
--- OUTSIDE RECORDS SUMMARY | 2025-05-25 12:37 | XMS_ITS | Clinical Summary ---
Author Organization [facility] 299 [facility] Address [address] [place] [address] Phone Care Team Providers Care Financial Adviser Name Role Phone Kalina Palacios MD Primary [...] NEEDED FOR FOR HEARTBURN 05/10/20 24 Active meclizine (ANTIVERT) 25 mg tablet take [...] BREAKFAST 30 capsule 5 11/08/19 25 Active ondansetron (ZOFRAN) 4 mg tablet TAKE 1 TABLET BY MOUTH TWICE A DAY 30 tablet 4 05/25/20 25 Active ondansetron (ZOFRAN) 4 mg tablet Take 1 tablet (4 mg total) by mouth 2 (two) times a day. 025 Discontinued Active Problems Problem Noted Date [...] Last Done Comments Breast Cancer Screening 1955 Colorectal Cancer Screening: Colonoscopy 1955 Cholesterol Screening (Lipid Panel) 07/23/2022 Falls Risk Assessment 07/23/2022 Hepatitis C [...] [facility] Comment:Calculation based on the Chronic [...] lt [facility] [address] [place] [address], from Last 3 Months or Most Recently Relevant to Health Maintenance Insurance [employer] [place] Care Teams Financial Adviser Relationship Specialty Start Date End Date Kalina Palacios MD PCP - General Internal Medicine 10/27/24
== END 2025-05-25 12:17 | disposition home or self-care (01) ==
LOC: HO.HMCC 10:47
PROVIDERS: PCP Internal Medicine; Visit Provider Internal Medicine
DX: E53.8 Deficiency of other specified B group vitamins (principal)

== ENCOUNTER → 2025-05-25 10:47 | Outpatient (BNVA) | payer MEDICARE, SELFPAY | PROVIDERS: PCP Internal Medicine; Visit Provider Internal Medicine | DX: E53.8 Deficiency of other specified B group vitamins (principal) | CPT/HCPCS: 96372; J3420 ==

== ENCOUNTER 2025-06-13 12:27 | Outpatient (REF) | payer MEDICARE, SELFPAY ==
[2025-06-13 16:37] LABS: Albumin Level 4.7 g/dL (3.5-5.0); Anion Gap 13 (12-20); Blood Urea Nitrogen 9 mg/dL (9-16); Calcium 9.5 mg/dL (8.4-10.2); Carbon Dioxide 28 mmol/L (22-29); Chloride 103 mmol/L (96-108); Estimated Glomerular Filt Rate > 60; Potassium 3.8 mmol/L (3.3-5.1); Sodium 140 mmol/L (135-145)
== END 2025-06-13 12:28 | disposition home or self-care (01) ==
LOC: HO.HMGCLDS 12:27
PROVIDERS: PCP Internal Medicine; Visit Provider Internal Medicine Endocrinology, Diabetes & Metabolism
DX: M81.0 Age-related osteoporosis without current pathological fracture (principal)
CPT/HCPCS: 36415; 80048; 82040

== ENCOUNTER 2025-06-26 10:53 | Outpatient (AMB) | payer MEDICARE, SELFPAY ==
--- NOTE | 2025-06-26 11:08 | AM.OFFVISNUR ---
Intake Visit Reasons: B-12 Allergies Codeine Sulfate Adverse Reaction (Unknown, Uncoded 05/01/25 13:18) nausea Nursing Note Pt came in for Vitamin B12 injection to right deltoid. Pt tolerated well. Office Meds cyanocobalamin (vitamin B-12) 1,000 mcg/mL injection solution Performing Provider: Kalina Palacios MD Performing Location: [facility] Adult Primary Care-[facility] Administered by: Elana Colon on 06/26/25 11:08 Dose Route Admin Location Dispensed Lot Number Expiration Date [facility] Study Manager 1,000 mcg IM 1 mL [id number] 06/12/27 53185-074-21 TREMAINE HENDERSON Total Dispensed Waste 1 mL 0 % Assessment & Plan Assessment & Plan Orders: Orders AMB Vitamin B12 Injection Patient Supplied Today E53.8 - Deficiency of other specified B group vitamins Coding
--- OUTSIDE RECORDS SUMMARY | 2025-06-26 13:29 | XMS_ITS | Clinical Summary ---
Author Organization [facility] 299 [facility] Address [address] [place] [address] Phone Care Team Providers Care Rolling Attendant Name Role Phone Kalina Palacios MD Primary [...] DAILY NEEDED FOR FOR HEARTBURN 4 Active meclizine (ANTIVERT) 25 mg tablet take 1 tablet by mouth 3 times a day as needed for dizziness 4 Active ALPRAZolam (XANAX) 0.5 mg tablet Take 1 tablet (0.5 mg total) by mouth 2 (two) times a day if needed for anxiety. Max Daily Amount: 1 mg 5 Active Linzess 72 mcg capsuleIndication s:Constipation, unspecified constipation type TAKE 1 CAPSULE (72 MCG TOTAL) BY MOUTH DAILY BEFORE BREAKFAST 30 capsule 5 5 Active ondansetron (ZOFRAN) 4 mg tablet TAKE 1 TABLET BY MOUTH TWICE A DAY 30 tablet 4 5 Active Active Problems Problem Noted Date [...] Encounters Date Type Department Care Team Description 06/21/2025 Telephone Gastroenterology - [address] [facility] [address] [place] [phone] Bernie Perez MD from Last 3 Months [...] mmol/L LAB CHEMISTRY METHOD 10/27/2024 5:03 PM [facility] Potassium 3.9 3.5 - 5.5 mmol/L LAB CHEMISTRY METHOD 10/27/2024 5:03 PM [facility] Chloride 103 96 - 110 mmol/L LAB CHEMISTRY METHOD 10/27/2024 5:03 PM [facility] CO2 26 21 - 32 mmol/L LAB CHEMISTRY METHOD 10/27/2024 5:03 PM [facility] Anion Gap 8 3 - 11 LAB CHEMISTRY METHOD 10/27/2024 5:03 PM [facility] Glucose 73 70 - 100 mg/dL LAB CHEMISTRY METHOD 10/27/2024 5:03 PM [facility] BUN 12 5 - 25 mg/dL LAB CHEMISTRY METHOD 10/27/2024 5:03 PM [facility] Creatinine 0.85 0.50 - 1.10 mg/dL LAB CHEMISTRY METHOD 10/27/2024 5:03 PM [facility] eGFR 75 >=60 mL/min/1. 73m2 LAB CHEMISTRY METHOD 10/27/2024 5:03 PM [facility] Comment:Calculation based on the Chronic Kidney Disease Epidemiology Collaboration (CKD-EPI) equation refit without adjustment for race. BUN/Creatinine Ratio 14.1 LAB CHEMISTRY METHOD 10/27/2024 5:03 PM [facility] Calcium 9.8 8.5 - 10.5 mg/dL LAB CHEMISTRY METHOD 10/27/2024 5:03 PM [facility] AST (SGOT) 20 10 - 42 unit/L LAB CHEMISTRY METHOD 10/27/2024 5:03 PM [facility] ALT (SGPT) 32 10 - 60 unit/L LAB CHEMISTRY METHOD 10/27/2024 5:03 PM [facility] Alkaline Phosphatase 71 42 - 121 unit/L LAB CHEMISTRY METHOD 10/27/2024 5:03 PM [facility] Total Protein 7.2 6.0 - 8.0 g/dL LAB CHEMISTRY METHOD 10/27/2024 5:03 PM [facility] Albumin 4.1 3.2 - 5.0 g/dL LAB CHEMISTRY METHOD 10/27/2024 5:03 PM [facility] Total Bilirubin 0.4 0.0 - 1.4 mg/dL LAB CHEMISTRY METHOD 10/27/2024 5:03 PM [facility] Blood Venous blood specimen / Unknown Venipuncture / Unknown 10/27/2024 3:31 PM EST 10/27/2024 4:20 PM EST us Carol ESTEBAN LAB BLOOD ORDERABLES Final Resu lt [facility] [address] [place] [address], from Last 3 Months or Most Recently Relevant to Health Maintenance Insurance [employer] [place]IC[place]AGE Member Subscriber Plan / Payer (Ef fective 2023-Present) Name:Veronica Coronado Relation to Subscriber:Self Name:Veronica Coronado Payer ID:[id number] Type:Not on file Address: [facility] [id number] [place] [id number] Care Teams Rolling Attendant Relationship Specialty Start Date End Date Kalina Palacios MD PCP - General Internal Medicine 10/27/24
--- OUTSIDE RECORDS SUMMARY | 2025-06-26 13:29 | XMS_ITS | Encounter Summary ---
Author Organization [facility] Address [address] [place] [address] Care Team Providers Care Fumigator And Sterilizer Name Role Phone Kalina Palacios MD Primary Care Provider [phone] Reason for Visit * Reason Onset Date Comments Constipation 06/21/2025 Encounter Details Date Type Department Care Team (Late st Contact Info) Description 06/21/2025 Telephone Gastroenterology - [address] [facility] [address] [phone] Bernie Perez MD [address] [facility] [address] [facility] [address] [place] [address] Social History Tobacco Use Types Packs/Day Years [...] as of this encounter Progress Notes * Vanessa Marquez MA - 06/22/2025 10:19 AM EDT Spoke with patient, states she has passed stool yesterday afternoon. States she is not taking linzess regularly. She will resume the linzess and will try that through the weekend and if unsuccessful will try OTC dulcolax/miralax. * Suad Lanier 06/21/2025 1:48 PM EDT Are you able to pass any stool at all? (if diarrhea, is it formed) no Are you having any abdominal pain/cramping? no Any fevers? no Have you taken anything over the counter for this if yes, what? no Are you on any new medications? no How long has this been an issue? 2 Days (Diarrhea only) How many episodes per day? N/A Which provider do you see here? Patient has taken linzess but it has not helped. documented in this encounter Plan of Treatment Not on file documented as of this encounter Visit Diagnoses Not on filedocumented in this encounter Care Teams Fumigator And Sterilizer Relationship Specialty Start Date End Date Kalina Palacios MD PCP - General Internal Medicine 10/27/24 documented as of this encounter
== END 2025-06-26 11:13 | disposition home or self-care (01) ==
LOC: HO.HMCC 10:53
PROVIDERS: PCP Internal Medicine; Visit Provider Internal Medicine
DX: E53.8 Deficiency of other specified B group vitamins (principal)

== ENCOUNTER → 2025-06-26 10:53 | Outpatient (BNVA) | payer MEDICARE, SELFPAY | PROVIDERS: PCP Internal Medicine; Visit Provider Internal Medicine | DX: E53.8 Deficiency of other specified B group vitamins (principal) | CPT/HCPCS: 96372; J3420 ==

== ENCOUNTER 2025-07-03 12:51 | Outpatient (AMB) | payer MEDICARE, SELFPAY ==
--- NOTE | 2025-07-03 13:08 | AM.OFFVISNUR ---
Intake Visit Reasons: 1st Prolia injection Allergies Codeine Sulfate Adverse Reaction (Unknown, Uncoded 05/01/25 13:18) nausea Office Meds Prolia 60 mg/mL subcutaneous syringe Performing Provider: Jason Delcid MD Performing Location: [facility] Endocrinology Administered by: Inessa Elam RN on 07/03/25 13:05 Dose Route Admin Location Dispensed Lot Number Expiration Date [employer] Oven Equipment Repairer 60 mg subcut left upper arm 1 mL [id number] 04/23/27 80927-243-45 [employer] Total Dispensed Waste 1 mL 0 % Comments: Patient in for first injection. Given in left upper arm. Patient tolerated injection well and observed x15 minutes following injection without adverse reaction. Patient scheduled for repeat in x6 months. Assessment & Plan Assessment & Plan Orders: Orders AMB Denosumab Injection Practice Supplied Today M81.0 - Age-related osteoporosis without current pathological fracture Medications: Discontinued romosozumab-aqqg (Evenity) Discontinued Reason: Patient Refused 210 mg (2.34 mL) subcut .monthly 2.34 mL 11RF Coding
--- OUTSIDE RECORDS SUMMARY | 2025-07-03 14:55 | XMS_ITS | Clinical Summary ---
Author Organization [facility] 299 [facility] Address [address] [place] [address] Phone Care Team Providers Care Construction Technology Instructor Name Role Phone Kalina Palacios MD Primary Care Provider [phone] Allergies Active Allergy Reactions Criticality Noted Date [...] 06/21/2025 Telephone Gastroenterology - [address] 299 [facility] [address] [place] [phone] Bernie Perez MD from Last 3 [...] ESTEBAN LAB BLOOD ORDERABLES Final Resu lt [facility] [address] [place] [address], from Last 3 Months or Most Recently Relevant to Health Maintenance Insurance [employer] [place]IC[place]AGE Member Subscriber Plan / Payer (Ef fective 2023-Present) Name:Veronica Coronado Relation to Subscriber:Self Name:Veronica Coronado Payer ID:[id number] Type:Not on file Address: [facility] [id number] [place] [id number] Care Teams Construction Technology Instructor Relationship Specialty Start Date End Date Kalina Palacios MD PCP - General Internal Medicine 10/27/24
== END 2025-07-03 13:21 | disposition home or self-care (01) ==
LOC: HO.ENCR 12:52
PROVIDERS: PCP Internal Medicine; Visit Provider Internal Medicine Endocrinology, Diabetes & Metabolism
DX: M81.0 Age-related osteoporosis without current pathological fracture (principal)

== ENCOUNTER → 2025-07-03 12:51 | Outpatient (BNVA) | payer MEDICARE, SELFPAY | PROVIDERS: PCP Internal Medicine; Visit Provider Internal Medicine Endocrinology, Diabetes & Metabolism | DX: M81.0 Age-related osteoporosis without current pathological fracture (principal); Z79.620 Long term (current) use of immunosuppressive biologic | CPT/HCPCS: 96372; J0897 ==

== ENCOUNTER 2025-07-17 12:25 | Outpatient (AMB) | payer MEDICARE, SELFPAY ==
[2025-07-17 12:55] VITALS: BP 138/70; PULSE 86; TEMP 36.5; O2SAT 98; BMI 25.4
--- NOTE | 2025-07-17 12:55 | AM.OFFWIN_ITS ---
Intake Vital Signs 07/17/25 12:55 Height 5 ft Weight 130 lb BMI 25.4 BP 138/70 Blood Pressure Location Lt brachial Position Sitting Pulse 86 Pulse Source Pulse Oximeter Temp 97.7 F Temp Source Oral Pulse Oximetry (%) 98 Oxygen Delivery Method Room Air Intake Visit Reasons: EP pulled muscle/cyst Intake Note: pt presents with non resolved right mid back muscle pull x5 days (ibuprofen and mobic is not helpful) also c/o abscess left buttock fold for about a month Patient Tobacco Use Status: Current everyday Tobacco user Allergies Codeine Sulfate Adverse Reaction (Unknown, Uncoded 07/17/25 13:02) nausea Do you need a note to return to daycare/school/sports/work: No HPI HPI Comments History of Present Illness Details History of Present Illness - The patient is a 70-year-old female pr esenting with muscle strain and a cyst. Muscle strain - The patient reports pulling a muscle a pproximately five days ago, which has been causing significant pain and discomfort. - The pain has been persistent despite t he use of ibuprofen, and the patient has been favoring one side due to the discomfort. - The patient has taken pain medication previously prescribed in January for lower back pain, which provides temporary relief. - She has pain when she stretches the ri ght arm across her body. - She has no trauma or falls. - She denies chest pain, SOB, shoulder p ain, arm pain, numbness, tingling, or rashes. Cyst - Approximately one month ago, the patie nt noticed a cyst that has been increasing in size. - The cyst became painful after being hi t while getting in and out of a car, and it may have drained slightly last night. - She has pain in the left groin. - She has a painful bump and she has no redness or drainage. - She denies fever or chills. Physical Exam General: Cooperative, healthy appearing, comfortable, no acute distress and well developed Head: Normal to inspection Respiratory: Clear to auscultation bilaterally. No w/r/r noted. Cardiovascular: Regular rate and rhythm. Normal S1 and S2 Musculoskeletal: FROM of the shoulders bilaterally. TTP of the left thoracic muscles. No midline spinous tenderness noted. No step off noted. Strength is 5/5 on the UE bilaterally. Skin: No rashes or lesions noted. Small, erythematous, single pustule noted in the left groin. No discharge, drainage or streaking noted. [facility] Medical History Sinus pressure Hx of TIA (transient ischemic attack) and stroke Osteoporosis of lumbar spine Vitamin B12 deficiency History of fracture of foot Chronic GERD Generalized anxiety disorder Dyslipidemia Surgical History Hx of colonoscopy Family History Father Coronary artery disease Brother Coronary artery disease Paternal Grandmother Breast cancer Social History Housing: House Alcohol intake: current Patient Tobacco Use Status: Current everyday Tobacco user Cigarettes Per Day: 2 e-Cigarette/Vaping Use: Never Used Second Hand Smoke Exposure: No service: No Current occupational status: retired Cognitive needs: No Hearing needs: No Vision needs: No Review of Systems Const All systems reviewed & are unremarkable except as noted in HPI and below Physical Exam Vital Signs: Last Vital Signs Temp 97.7 F 07/17/25 12:55 Pulse 86 07/17/25 12:55 BP 138/70 07/17/25 12:55 Pulse Ox 98 07/17/25 12:55 Oxygen Delivery Method Room Air 07/17/25 12:55 BMI result Body Mass Index 25.4 Assessment & Plan Assessment & Plan (1) Thoracic myofascial strain: Code(s): S29.019A - Strain of muscle and tendon of unspecified wall of thorax, initial encounter Qualifiers: Encounter type: initial encounter Qualified Code(s): S29.019A - Strain of muscle and tendon of unspecified wall of thorax, initial encounter Plan: Most likely a muscle strain plan - heat and/or ice to the back - mobic as needed for pain - flexeril as needed for spasm - activities as tolerated - follow up with PCP (2) Abscess: Code(s): L02.91 - Cutaneous abscess, unspecified Plan: Most likely abscess or cyst or folliculitis plan - warm compresses - tylenol or motrin as needed - doxycycline BID for 7 days - follow up with PCP Medications: New cyclobenzaprine 5 mg PO Q8H PRN 20 tabs 0RF Muscle Spasm doxycycline hyclate 100 mg PO BID 14 tabs 0RF Refilled meloxicam 7.5 mg PO DAILY 10 tabs 0RF Coding Level of Care Code Est Pt Level 4 (84971) Diagnoses Thoracic myofascial strain, initial encounter S29.019A Encounter type: initial encounter Abscess L02.91
--- OUTSIDE RECORDS SUMMARY | 2025-07-17 16:24 | XMS_ITS | Clinical Summary ---
Author Organization [facility] 299 [facility] Address [address] [place] [address] Phone Care Team Providers Care Senior Marketing Associate Name Role Phone Kalina Palacios MD Primary [...] 06/21/2025 Telephone Gastroenterology - [address] [facility] [address] [place] [phone] Bernie Perez MD from Last 3 [...] LAB BLOOD ORDERABLES Final Resu lt [facility] [address] [place] [address], from Last 3 Months or Most Recently Relevant to Health Maintenance Insurance [employer] [place] MEDICARE ADVANTAGE Member Subscriber Plan / Payer (Ef fective 2023-Present) Name:Veronica Coronado Relation to Subscriber:Self Name:Veroniac Coronado Payer ID:[id number] Type:Not on file Address: [facility] [id number] [place] [phone] Care Teams Senior Marketing Associate Relationship Specialty Start Date End Date Kalina Palacios MD PCP - General Internal Medicine 10/27/24
== END 2025-07-17 13:52 | disposition home or self-care (01) ==
PROVIDERS: PCP Internal Medicine; Visit Provider Physician Assistant Medical
DX: S29.019A Strain of muscle and tendon of unspecified wall of thorax, initial encounter (principal); L02.91 Cutaneous abscess, unspecified

== ENCOUNTER → 2025-07-17 12:25 | Outpatient (BNVA) | payer MEDICARE, SELFPAY | PROVIDERS: PCP Internal Medicine; Visit Provider Physician Assistant Medical | DX: L02.91 Cutaneous abscess, unspecified (principal); S29.019A Strain of muscle and tendon of unspecified wall of thorax, initial encounter; X58.XXXA Exposure to other specified factors, initial encounter; Y93.9 Activity, unspecified; Y92.9 Unspecified place or not applicable; Y99.9 Unspecified external cause status | CPT/HCPCS: 99212 ==

== ENCOUNTER 2025-07-25 10:49 | Outpatient (AMB) | payer MEDICARE, SELFPAY ==
--- NOTE | 2025-07-25 11:00 | AM.OFFVISNUR ---
Intake Visit Reasons: B12 Intake Note: Pt arrived for monthly B-12 injection Allergies Codeine Sulfate Adverse Reaction (Unknown, Uncoded 07/17/25 13:02) nausea Office Meds cyanocobalamin (vitamin B-12) 1,000 mcg/mL injection solution Performing Provider: Kalina Palacios MD Performing Location: [facility] Administered by: Amara Saleh RN on 07/25/25 11:00 Dose Route Admin Location Dispensed Lot Number Expiration Date [facility] Business Continuity Analyst 1,000 mcg IM right deltoid 1 mL [id number] 05/24/27 39127-093-59 [employer] Total Dispensed Waste 1 mL 0 % Comments: Pt supplied Assessment & Plan Assessment & Plan Orders: Orders AMB Vitamin B12 Injection Patient Supplied Today E53.8 - Deficiency of other specified B group vitamins Coding
--- OUTSIDE RECORDS SUMMARY | 2025-07-25 12:40 | XMS_ITS | Clinical Summary ---
Author Organization [facility] 299 [facility] Address [address] [place] [address] Phone Care Team Providers Care Master Control Operator Name Role Phone Kalina Palacios MD Primary Care Provider [phone] Allergies Active Allergy Reactions Criticality Noted Date [...] 06/21/2025 Telephone Gastroenterology - [address] [facility] [address] [place] [phone] Bernie Perez MD from Last 3 [...] mmol/L LAB CHEMISTRY METHOD 10/27/2024 5:03 PM [facility] Potassium 3.9 3.5 - 5.5 mmol/L LAB CHEMISTRY METHOD 10/27/2024 5:03 PM [facility] Chloride 103 96 - 110 mmol/L LAB CHEMISTRY METHOD 10/27/2024 5:03 PM [facility] CO2 26 21 - 32 mmol/L LAB CHEMISTRY METHOD 10/27/2024 5:03 PM [facility] Anion Gap 8 3 - 11 LAB CHEMISTRY METHOD 10/27/2024 5:03 PM [facility] Glucose 73 70 - 100 mg/dL LAB CHEMISTRY METHOD 10/27/2024 5:03 PM [facility] BUN 12 5 - 25 mg/dL LAB CHEMISTRY METHOD 10/27/2024 5:03 PM [facility] Creatinine 0.85 0.50 - 1.10 mg/dL LAB CHEMISTRY METHOD 10/27/2024 5:03 PM [facility] eGFR 75 >=60 mL/min/1. 73m2 LAB CHEMISTRY METHOD 10/27/2024 5:03 PM [facility] Comment:Calculation based on the Chronic Kidney Disease Epidemiology Collaboration (CKD-EPI) equation refit without adjustment for race. BUN/Creatinine Ratio 14.1 LAB CHEMISTRY METHOD 10/27/2024 5:03 PM [facility] Calcium 9.8 8.5 - 10.5 mg/dL LAB CHEMISTRY METHOD 10/27/2024 5:03 PM [facility] AST (SGOT) 20 10 - 42 unit/L LAB CHEMISTRY METHOD 10/27/2024 5:03 PM [facility] ALT (SGPT) 32 10 - 60 unit/L LAB CHEMISTRY METHOD 10/27/2024 5:03 PM [facility] Alkaline Phosphatase 71 42 - 121 unit/L LAB CHEMISTRY METHOD 10/27/2024 5:03 PM [facility] Total Protein 7.2 6.0 - 8.0 g/dL LAB CHEMISTRY METHOD 10/27/2024 5:03 PM [facility] Albumin 4.1 3.2 - 5.0 g/dL LAB CHEMISTRY METHOD 10/27/2024 5:03 PM [facility] Total Bilirubin 0.4 0.0 - 1.4 mg/dL LAB CHEMISTRY METHOD 10/27/2024 5:03 PM [facility] Blood Venous blood specimen / Unknown Venipuncture / Unknown 10/27/2024 3:31 PM EST 10/27/2024 4:20 PM EST us Carol [facility] LAB BLOOD ORDERABLES Final Resu lt [facility] [address] [place] [address], from Last 3 Months or Most Recently Relevant to Health Maintenance Insurance [employer] [place] AD[place]ANTAGE Member Subscriber Plan / Payer (Ef fective 2023-Present) Name:Veronica Coronado Relation to Subscriber:Self Name:Veronica Coronado Payer ID:[id number] Type:Not on file Address: [facility] [id number] [place] [phone] Care Teams Master Control Operator Relationship Specialty Start Date End Date Kalina Palacios MD PCP - General Internal Medicine 10/27/24
== END 2025-07-25 13:58 | disposition home or self-care (01) ==
LOC: HO.HMCC 10:49
PROVIDERS: PCP Internal Medicine; Visit Provider Internal Medicine
DX: E53.8 Deficiency of other specified B group vitamins (principal)

== ENCOUNTER → 2025-07-25 10:49 | Outpatient (BNVA) | payer MEDICARE, SELFPAY | PROVIDERS: PCP Internal Medicine; Visit Provider Internal Medicine | DX: E53.8 Deficiency of other specified B group vitamins (principal) | CPT/HCPCS: 96372; J3420 ==